=== PATIENT | female | born 1940 | race Caucasian/White ===

== ENCOUNTER 2020-08-15 18:50 | Emergency (ER) | payer MEDICARE, SELFPAY ==
[2020-08-15 19:09] VITALS: BP 165/66; PULSE 76; RESP 14; TEMP 36.8; O2SAT 94; BMI 34.9
--- NOTE | 2020-08-15 19:27 | HMH.EDUTC ---
[facility] [place] Disposition Clinical Impression: Exposure to COVID-19 virus Disposition: Home, Self-Care Condition on Discharge: Good Instructions: Preventing the Spread of Coronavirus Discharge Instructions Additional Instructions: Drink plenty of fluids. Take tylenol or ibuprofen for pain or fever. Follow up with your regular doctor. GO TO THE ER FOR ANY WORSENING SYMPTOMS FOLLOW THE DIRECTIONS ON THE COVID-19 HAND OUT THAT WE GAVE YOU REGARDING SELF-ISOLATION UNTIL YOU KNOW YOUR COVID-19 RESULTS Referrals: Victorina Soto [Primary Care Provider] - Time of Disposition: 19:29 Medical Decision Making - Medical Records Medical records reviewed: No: I reviewed the patient's medical records. - Jesse Inquiry Pt receiving controlled substance: No Vital Signs: 08/15/20 19:09 08/15/20 19:32 Temperature 98.3 F 98.3 F Temperature Source Oral Pulse Rate 76 Pulse Rate [Right Brachial] 76 Respiratory Rate 14 14 Blood Pressure 165/66 H Blood Pressure [Right Arm] 165/66 H Blood Pressure Mean [Right Arm] 99 Blood Pressure Source [Right Arm] Automatic Cuff Blood Pressure Position [Right Arm] Sitting 02 Sat by Pulse Oximetry 94 L Oxygen Delivery Method Room Air [facility] [place] HPI - General Stated complaint: COVID Testing Time Seen by Provider: 08/15/20 19:15 Mode of Arrival: Ambulatory Source of Information: Patient Limitations: No Limitations Description of Symptoms (Recalled from Triage Doc. by RN): PATIENT'S DAUGHTER WAS EXPOSED TO COVID, REQUESTING TO BE TESTED. DENIES SYMPTOMS HEENT Symptoms (Recalled from RN notes): No Resp Symptoms (Recalled from RN notes): No Skin Symptoms (Recalled from RN notes): No MS Symptoms (Recalled from RN notes): No Functional Status (Recalled from RN notes): WNL - History of Present Illness Provider Complaint: Her daughter was exposed to covid at her workplace. She lives with her daughter. - Related Data Allergies Allergy/AdvReac Type Severity Reaction Status Date / Time codeine Allergy Verified 08/15/20 19:21 - Worker's Comp Is this a Worker's Comp case?: No [facility] History - Hepatitis A Screen Drug use history?: No High risk sexual behaviors?: No History of sexually transmitted infection?: No Currently employed?: No Childcare worker?: No Do you have indoor plumbing?: Yes Do you have electricity?: Yes Attestation statement:: This patient has been screened for Hepatitis A risk factors. I have reviewed the patient's past medical history: Yes - Social History Alcohol Intake: never Occupational Status: other ROS Obtained: Yes All systems reviewed & no additional complaints - Constitutional Constitutional: Denies chills, Denies fever(s) - Eyes Eyes: Denies eye discharge - ENT Ears, Nose, Mouth, and Throat: Denies dizziness, Denies otalgia, Denies sore throat - Cardiovascular Cardiovascular: Denies chest pain, Denies dyspnea - Respiratory Respiratory: No chest congestion, No cough Physical Exam - General General appearance: alert, in no apparent distress - Head Head exam: atraumatic, normocephalic, normal inspection - Eye Eye exam: Present: normal appearance, PERRL, EOMI - ENT ENT exam: Present: normal exam, normal oropharynx, mucous membranes moist, TM's normal bilaterally, normal external ear exam - Neck Neck exam: Present: normal inspection, full ROM, trachea midline. Absent: meningismus, lymphadenopathy - Chest Chest inspection: Present: normal inspection, symmetric chest wall rise. Absent: tenderness - Respiratory Respiratory exam: Present: normal lung sounds bilaterally. Absent: respiratory distress - Cardiovascular Cardiovascular exam: Present: regular rate, normal rhythm. Absent: JVD - Abdominal Exam Abdominal exam: Present: soft, normal bowel sounds. Absent: distention, tenderness, guarding - Extremities Exam Extremities exam: Present: normal inspection, full ROM, normal capillary refill. Absent:
[2020-08-15 19:32] VITALS: BP 165/66; PULSE 76; RESP 14; TEMP 36.8; O2SAT 94
== END 2020-08-15 19:40 | disposition home or self-care (01) ==
PROVIDERS: Emergency Provider Nurse Practitioner Family; PCP Physician Assistant
DX: Z20.828 Contact with and (suspected) exposure to other viral communicable diseases (principal); Z88.5 Allergy status to narcotic agent
CPT/HCPCS: G0463; 99201; U0003

== ENCOUNTER 2021-07-31 16:00 | Emergency (ER) | payer MEDICARE, SELFPAY ==
--- NOTE | 2021-07-31 16:13 | XR_ITS ---
PROCEDURE INFORMATION: Exam: XR Chest Exam date and time: 07/31/2021 4:13 PM Age: 80 years old Clinical indication: Cough; Patient HX: Neg covid test this morning TECHNIQUE: Imaging protocol: XR of the chest. Views: 2 views. COMPARISON: No relevant prior studies available. FINDINGS: Lungs: Unremarkable. No consolidation. Pleural spaces: Unremarkable. No pleural effusion. No pneumothorax. Heart/Mediastinum: Unremarkable. No cardiomegaly. Bones/joints: Unremarkable. IMPRESSION: No acute findings.
[2021-07-31 16:16] VITALS: BP 170/76; PULSE 71; RESP 22; TEMP 36.7; O2SAT 96; BMI 34.7
--- NOTE | 2021-07-31 16:25 | HMH.EDUTC ---
[facility] [place] Disposition Clinical Impression: Bronchitis Sinusitis Qualifiers: Sinusitis location: unspecified location Chronicity: unspecified Qualified Code(s): J32.9 - Chronic sinusitis, unspecified Disposition: Home, Self-Care Condition on Discharge: Good Instructions: Sinusitis, Acute Bronchitis, DI for Sinusitis, DI for Cough -- Adult Additional Instructions: ? Start antibiotic today. Be sure to complete entire prescription even if feeling better ? Monitor temp. Tylenol every 4 hours as needed and / or ibuprofen every 6 hours as needed ( As long as your primary care physician has told you that it ok to take both. For fever/aches/pains ER if no less than 101 despite Tylenol or Motrin ? Humidifier/vaporizer or hot steamy shower ? Inhaler every 4-6 hours as needed like we discussed. If unsure how to use it, ask pharmacist to demonstrate how. Should help open airways and improve cough, wheezing, and shortness of breath ? Mucinex for your cough and chest congestion. . Follow up with Family Doctor if no improvement or any worsening of symptoms Repeat COVID test if symptoms persist or worsen Follow up IMMEDIATELY for new or worsening of symptoms OR no noticeable improvement over the next 48-72 hours. 911 immediately for any life threatening symptoms such as chest pain or difficulty breathing Prescriptions: guaiFENesin [Mucinex 600mg tablet] 1 tab PO Q12HP PRN #20 tab PRN Reason: Congestion Transmission Status: Received by [facility] #[id number] Azithromycin [Z-Peng 250mg Tab] 250 mg PO DIRECTED #6 tab Transmission Status: Received by [facility] #[id number] Referrals: Marco Cabezas APRN [Primary Care Provider] - As needed Medical Decision Making - Jesse Inquiry Pt receiving controlled substance: No Jesse was queried for this patient: No Vital Signs: 07/31/21 16:16 07/31/21 17:46 Temperature 98.1 F 98.1 F Temperature Source Oral Pulse Rate 73 Pulse Rate [Left] 71 Respiratory Rate 22 18 Blood Pressure 168/73 H Blood Pressure [Right Arm] 170/76 H Blood Pressure Mean [Right Arm] 107 02 Sat by Pulse Oximetry 96 - Lab Data Lab results reviewed: Yes: I reviewed the patient's lab results. Lab Results 07/31/21 16:29: Strep Scn Rapid Clinic Negative Orders (Tests/Meds): ED MEDICATIONS Discontinued Medications Generic Name Dose Route Start Last Admin Trade Name Guevara PRN Reason Stop Dose Admin Ceftriaxone Sodium 1 gm 07/31/21 17:23 07/31/21 17:34 Ceftriaxone 1gm Vial IM 07/31/21 17:24 1 gm ONCE ONE Administration Lidocaine HCl 0 ml 07/31/21 17:23 07/31/21 17:33 Lidocaine 1% 5ml Pf Vial IM 07/31/21 17:24 2.5 ml ONCE ONE Administration ORDERS Category Date Time Status Strep Screen Confirmation Stat Micro 07/31/21 16:29 Received - Radiology Data #1 Image(s): Chest Image Reviewed: Yes I have reviewed radiologist's interpretation IMPRESSION: No acute findings. Medical Decision Narrative: Discussed with patient about transfer to the ED for further work up and evaluation and patient declined transfer states that she just wants medication and wants to go home Patient states that she has taken a zpack in the past without complications or reactions [facility] [place] HPI - General Stated complaint: cough,weak,body aches Time Seen by Provider: 07/31/21 16:26 Mode of Arrival: Ambulatory Source of Information: Patient Limitations: No Limitations Description of Symptoms (Recalled from Triage Doc. by RN): pt c/o weakness, body aches, fatigue, productive cough with green sputum and soa. pt states her sats dropped to 86% last night when feeling soa. pt is at 96% at this time on RA. no respiratory hx noted. pt had a negative rapid covid test today. HEENT Symptoms (Recalled from RN notes): No Resp Symptoms (Recalled from RN notes): Yes (soa and productive cough with yellow sputum) Skin Symptoms (Recalled from RN notes): No MS Symptoms (Recalled from RN not
[2021-07-31 17:46] VITALS: BP 168/73; PULSE 73; RESP 18; TEMP 36.7
[2021-07-31 20:08] LABS: UTC Strep Screen (Rapid) Negative (Negative)
== END 2021-07-31 17:48 | disposition home or self-care (01) ==
PROVIDERS: Emergency Provider Nurse Practitioner; PCP Nurse Practitioner Family
DX: J40 Bronchitis, not specified as acute or chronic (principal); J32.9 Chronic sinusitis, unspecified
CPT/HCPCS: 71046; 87880; 99202; G0463

== ENCOUNTER 2021-09-27 10:41 | Emergency (ER) | payer MEDICARE, SELFPAY ==
[2021-09-27 11:00] VITALS: BP 153/64; PULSE 84; RESP 18; TEMP 36.4; O2SAT 95; BMI 34.2
[2021-09-27 11:18] LABS: UTC Strep Screen (Rapid) Negative (Negative)
--- NOTE | 2021-09-27 11:43 | HMH.EDUTC ---
[facility] – [place] Disposition Clinical Impression: Otitis media Qualifiers: Otitis media type: suppurative Chronicity: acute Laterality: right Recurrence: non-recurrent Spontaneous tympanic membrane rupture: without spontaneous rupture Qualified Code(s): H66.001 - Acute suppurative otitis media without spontaneous rupture of ear drum, right ear Disposition: Home, Self-Care Condition on Discharge: Good Instructions: Middle Ear Infection Additional Instructions: Start antibiotic as soon as possible and be sure to take as ordered for full length of time even though he should start feeling better in 24-48 hours. Tylenol or Motrin as needed for pain or fever Encourage fluids, water, Gatorade, Powerade, Pedialyte if /toddler/child Warm compresses often helps when placed over ear Return immediately for new or worsening symptoms no noticeable improvement in 48-72 hours and in 10-14 days to ensure the ears are return to baseline. Follow-up with primary care Prescriptions: Amoxicillin [Amoxicillin 500mg Tab] 500 mg PO BID 10 Days #20 tab Transmission Status: Pending to [facility] #[id number] Referrals: Marco Cabezas APRN [Primary Care Provider] - Time of Disposition: 12:04 Medical Decision Making - Jesse Inquiry Pt receiving controlled substance: No Vital Signs: 09/27/21 11:00 Temperature 97.6 F Temperature Source Oral Pulse Rate [Right Brachial] 84 Respiratory Rate 18 Blood Pressure [Right Arm] 153/64 H Blood Pressure Mean [Right Arm] 93 Blood Pressure Source [Right Arm] Automatic Cuff Blood Pressure Position [Right Arm] Sitting 02 Sat by Pulse Oximetry 95 Oxygen Delivery Method Room Air - Lab Data Lab Results 09/27/21 11:12: Strep Scn Rapid Clinic Negative Orders (Tests/Meds): ORDERS Category Date Time Status Strep Screen Confirmation Stat Micro 09/27/21 11:12 Received [facility] [place] HPI - General Chief complaint: Urgent Treatment Center Stated complaint: right ear ache, sore throat Time Seen by Provider: 09/27/21 11:43 Mode of Arrival: Ambulatory Source of Information: Patient Limitations: No Limitations Description of Symptoms (Recalled from Triage Doc. by RN): PATIENT C/O RIGHT EAR ACHE WITH DRAINAGE AND SORE THROAT SINCE WEDNESDAY HEENT Symptoms (Recalled from RN notes): Yes Resp Symptoms (Recalled from RN notes): No Skin Symptoms (Recalled from RN notes): No MS Symptoms (Recalled from RN notes): No Functional Status (Recalled from RN notes): WNL - History of Present Illness Provider Complaint: 80 yr old female presnets for rt ear pain and sore throat with tender lymp node. - Related Data Previous Rx's Medication Instructions Recorded Amoxicillin [Amoxicillin 500mg Tab] 500 mg PO BID 10 Days #20 tab 09/27/21 Allergies Allergy/AdvReac Type Severity Reaction Status Date / Time codeine Allergy Verified 08/15/20 19:21 - Worker's Comp Is this a Worker's Comp case?: No [facility] History - Hepatitis A Screen Drug use history?: No High risk sexual behaviors?: No History of sexually transmitted infection?: No Currently employed?: No Childcare worker?: No Do you have indoor plumbing?: Yes Do you have electricity?: Yes Attestation statement:: This patient has been screened for Hepatitis A risk factors. I have reviewed the patient's past medical history: Yes Medical History: Reports:: Diabetes Mellitus Type 2 Laterality Cases: Bilateral: Tonsillectomy - Social History Alcohol Intake: never Occupational Status: other ROS Obtained: Yes Systems reviewed as appropriate & no additional complaints - Constitutional Constitutional: Reports system reviewed and no additional complaints, except as docu, Denies fever(s) - Eyes Eyes: Reports system reviewed and no additional complaints, except as docu, Denies blurry vision - ENT Ears, Nose, Mouth, and Throat: Reports system reviewed and no additional complaints, except as docu, Reports otalgia, Reports sore throat - Cardiovascular
[2021-09-27 12:05] VITALS: BP 153/64; PULSE 84; RESP 18; TEMP 36.4; O2SAT 95
== END 2021-09-27 12:09 | disposition home or self-care (01) ==
PROVIDERS: Emergency Provider Nurse Practitioner Family; PCP Nurse Practitioner Family
DX: H66.001 Acute suppurative otitis media without spontaneous rupture of ear drum, right ear (principal); E11.9 Type 2 diabetes mellitus without complications
CPT/HCPCS: G0463; 87880; 99202

== ENCOUNTER → 2021-12-10 16:07 | Outpatient (CLI) | payer MEDICARE, SELFPAY | PROVIDERS: PCP Nurse Practitioner Family; Visit Provider Nurse Practitioner | DX: Z20.822 Contact with and (suspected) exposure to COVID-19 (principal) | CPT/HCPCS: C9803; U0003; U0005 ==

== ENCOUNTER 2025-05-03 18:25 | Inpatient (IN) | payer MEDICARE, SELFPAY ==
--- OUTSIDE RECORDS SUMMARY | 2025-05-01 03:05 | XMS_ITS | Continuity of Care Document ---
Author Organization [facility] Phone Care Team Providers Care Orthopedic Shoes Salesperson Name Role Phone DANII MEHTA Primary Care DANII MEHTA Primary Attending DANII MEHTA Admitting DANII MEHTA Unavailable [phone] ALLERGIES AND ADVERSE REACTIONS ALLERGIES AND ADVERSE REACTIONS Code System Allergy Substance Adverse Reaction Date Reaction (Severity) Comment Status Reported By Updated By 3885 RXNorm CODEINE Drug-induce d nausea and vomiting active Patient [id number] on September 17, 2016 2:37:57 PM [place] 7052 RXNorm MORPHINE Adverse reaction to substance u active [id number] on April 19, 2018 3:26:08 PM [place] 4053 RXNorm ERYTHROMYCIN Adverse reaction to substance active [id number] on April 17, 2019 6:34:24 PM [facility] [id number] SNOMED CT IODINATED CONTRAST MEDIA Adverse reaction to substance (Moderate) oral swelling , facial edema active [id number] on June 17, 2023 11:56:59 AM [facility] [id number] SNOMED CT IODINATED CONTRAST MEDIA Adverse reaction to substance (Moderate) oral swelling , facial edema active [id number] on June 17, 2023 11:56:59 AM [facility] FAMILY HISTORY RELATION: Father Status: Cause of : Cerebrovascular accident Age at : Unknown SNOMED-CT Diagnosis Age At Onset Information not available RELATION: Mother Status: Cause of : Congestive heart failure Age at : Unknown SNOMED-CT Diagnosis Age At Onset Information not available RESULTS Patient: HAWA Cifuentes Date of : [birth year] LABORATORY RESULTS Information is not available LABORATORY NARRATIVE RESULTS Information is not available RADIOLOGY RESULTS Information is not available PATHOLOGY NARRATIVE RESULTS Information is not available MICROBIOLOGY RESULTS ORDER 100: CULTURE URINE (LO INC: 630-4) ORDER DATE: April 27, 2025 12:50:00 PM UTC PERFORMING LAB: [address] [id number] Specimen Source: URINE Specimen Type: Result Comment: April 28, 2025 10:30:00 AM UTC (TECH: [facility]) >100,000 COL/ML Gram Negative Rods Result Comment: April 28, 2025 10:31:00 AM UTC (TECH: [facility]) IDENTIFICATION AND SUSCEPTIBILITY TESTING PERFORMED AT [address] [place] [address] Final Result Date: April 29, 2025 1:36:00 PM UTC (TECH: [facility]) ISOLATE #1 Organism: Escherichia coli Result Comment: Final Result Date: April 29, 2025 1:36:00 PM UTC (TECH: [facility]) RAFIA ANTIBIOTIC LUANN TYPE VALUE UPDATED B Y 05351-2 Aztreonam < 2.0 Urine S April 29 1:36:00 PM UTC (TECH: [facility]) 34565-6 Ciprofloxacin < 0.25 Urine S April 152024 1:36:00 PM UTC (TECH: [facility]) 6984-9 ESBL Urine N April 29 1:36:00 PM UTC (TECH: [facility]) 04663-6 Levofloxacin <= 0.5 Urine S April 1:36:00 PM UTC (TECH: [facility]) 19939-8 Meropenem < 0.5 Urine S April 29 1:36:00 PM UTC (TECH: [facility]) 26667-2 Amikacin <= 8.0 Urine S April 29 1:36:00 PM UTC (TECH: [facility]) 64309-9 Ampicillin < 4.0 Urine S April 29, 2025 1:36:00 PM UTC (TECH: [facility]) 32-3 Amp/Sulbactam 0.0 Urine S April 152024 1:36:00 PM UTC (TECH: [facility]) 89147-5 Cefepime <= 1.0 Urine S April 29 1:36:00 PM UTC (TECH: [facility]) 86826-8 Ceftazidime < 2.0 Urine S April 29, 2025 1:36:00 PM UTC (TECH: [employer]) 53225-1 Ceftriaxone <= 1.0 Urine S April 29, 2025 1:36:00 PM UTC ([employer]: [employer]) 21016-5 Ertapenem < 0.25 Urine S April 29 1:36:00 PM UTC ([employer]) 41943-0 Gentamicin < 2.0 Urine S April 29, 2025 1:36:00 PM UTC ([employer]) 38926-3 Nitrofurantoin 32.0 Urine S April 29, 2025 1:36:00 PM UTC ([employer]) 04120-1 Piperacillin/Tazo 0.0 Urine S 2024 1:36:00 PM UTC ([employer]) 15065-3 Tetracycline <= 2.0 Urine S April 1:36:00 PM UTC ([employer]) 51904-7 Tobramycin < 2.0 Urine S April 29, 2025 1:36:00 PM UTC ([employer]) 516-5 Trimeth/Sulfa <= 0.5 Urine S April 152024 1:36:00 PM UTC ([employer]: [employer]) 37098-7 Sensitivity Required? Systemic April 29, 2025 1:36:00 PM UTC ([employer]: [employer]) BLOOD ADMIN RESULTS Information is not available MEDICATIONS HOME MEDICATIONS Status RXNORM NDC Medication Dose Route Frequency Dates Comments Reported By Updated By Drug Treatment Unknown DISCHARGE MEDICATIONS Status RXNORM NDC Medication Dose Route Frequency Dates Comments Physician Updated By No Discharge Medication Info rmation Available INPATIENT MEDICATIONS Status RXNORM NDC Medication Dose Route Frequency Rat e Quantity Dates Comments Physician Updated By No Inpatient Medication Info rmation Available SOCIAL HISTORY SOCIAL HISTORY SNOMED-CT Social History Element Description Effective Dates Offered Cessation Comment UpdatedBy [id number] Historical Tobacco smoking status Never Smoked [id number] on June 18, 2023 1:06:31 PM [place] SOCIAL HISTORY - Gender Sex: Female SOCIAL HISTORY - Status : status i nformation is not available Intention in Next Year: intention information is not available SOCIAL HISTORY - Sexual Behavior Sexual Orientation Gender Identity SNOMED-CT Description SNO MED -CT Description Activity Level No of Partners Partner Type UpdatedBy Information is not available HEALTH CONCERNS Problems Concern Status Health Concern problem infor mation not available. Smoking Status Status Years Used Consumed packs p er day Health Concern smoking histo ry information not available. Family History Concern Status Health Concern family histor y information not available. ENCOUNTERS ENCOUNTER INFORMATION Reason for Visit R30.0 Admission April 27, 2025 12:50:00 PM UTC [facility] [address] [facility] [id number] Discharge April 28, 2025 12:50:00 PM UTC DI SCHARGED TO HOME OR SELF CARE ENCOUNTER DIAGNOSES Notes information is not buster ilable. Code System Diagnosis Onset Date Diagnosis information is not available. ABSTRACT DIAGNOSES Code System Diagnosis Updated By R30.0 ICD10 DYSURIA [id number] on May 01, 2025 7:03:48 AM UTC R30.0 ICD10 DYSURIA [id number] on May 01, 2025 7:03:51 AM [place] CARE TEAM Care [employer]opedic Sh[employer] Salesperson Role DANII MEHTA Primary Care DANII MEHTA Primary Attending DANII MEHTA Admitting DANII MEHTA Referring CARE TEAM CARE telephone operators supervisor Role on Team Status Start Date End Date Update d By JANINE ENNIS PCP normal April 27, 2025 4:00:00 AM UTC April 28, 2025 12:50:00 PM UTC [id number] on April 30, 2025 10:23:37 AM [place] JANINE ENNIS Referring normal April 27, 2025 4:00:00 AM UTC April 28, 2025 12:50:00 PM UTC [id number] on April 30, 2025 10:23:37 AM [place] JANINE ENNIS Attending normal April 27, 2025 4:00:00 AM UTC April 28, 2025 12:50:00 PM UTC [id number] on April 30, 2025 10:23:37 AM [place] JANINE ENNIS Admitting normal April 27, 2025 4:00:00 AM UT April 28, 2025 12:50:00 PM UTC [id number] on April 30, 2025 10:23:37 AM UTC DECLINED PCP PCP normal April 27, 2025 12:50:32 PM UTC April 27, 2025 4:00:00 AM UT [id number] on April 30, 2025 10:23:37 AM UT
[2025-05-03 18:45] VITALS: BP 128/98; PULSE 81; RESP 18; TEMP 36.6; O2SAT 92; BMI 35.1
--- NOTE | 2025-05-03 18:46 | PC.NURSE ---
Pt. on floor and nursing aid getting vitals.
[2025-05-03 19:44] VITALS: PULSE 65
[2025-05-03] MEDS: PANTOPRAZOLE 40MG TABLET 40 MG PO (19:54)
[2025-05-03] MEDS: ACETAMINOPHEN 325MG TAB 650 MG PO (19:54)
[2025-05-03 19:59] VITALS: BP 167/73; PULSE 79; RESP 22; TEMP 36.7; O2SAT 94
--- NOTE | 2025-05-03 21:12 | ECG_ITS ---
APPROVED REPORT Exam: Resting ECG HR:70 bpm ECG Measurements Heart Rate 70 AXES WV 189 P 42 QRSd 101 QRS -14 QT 334 T 11 QTc 355 Conclusion SINUS RHYTHM MODERATE VOLTAGE CRITERIA FOR LVH, CONSIDER NORMAL VARIANT [MEETS CRITERIA IN ONE OF: R(aVL), S(V1), R(V5), R(V5/V6)+S(V1)] POSSIBLE ANTERIOR MYOCARDIAL INFARCTION , PROBABLY OLD [30 ms Q WAVE IN V3/V4, OR R < 0.2 mV IN V4] BORDERLINE ECG UNCONFIRMED REPORT Electronically signed by : Tate Stafford MD 05/05/2025 14:56:18
[2025-05-03] MEDS: glipiZIDE 5MG TABLET 10 MG PO (21:24)
[2025-05-03] MEDS: ATENOLOL 50MG TABLET 50 MG PO (21:25)
--- NOTE | 2025-05-03 21:31 | EXP.HP ---
History of Present Illness *Admission Date: 05/03/25 *Reason for visit:: New onset heart failure *History of present illness: Oly Jones is a 84-year-old female with a medical history of former HI, type 2 diabetes, hypertension who presented as a transfer from [facility] for new onset heart failure. Unfortunately, at hospital does not have the ability to do ECHO on a daily basis. They reached out to Dr. Chiu who recommended transfer to our facility for further evaluation and management. On arrival, patient was sitting in bed comfortably without acute distress. She states she has been having progressive shortness of breath over the past few days and thus presented to the ER. On arrival, patient was noted to be hypoxic and placed on 2 L. CXR there showed pulmonary edema with BNP 550, mildly elevated high-sensitivity troponins that peaked at 30. Of note, patient was noted to have 70% left renal artery stenosis at that facility. I discussed case with the ER attending and decision was made to accept patient for new onset heart failure. CMP, CBC, BNP, troponin at this time are pending at her facility. [facility] Disclaimer: The information contained in this section may have been updated after the patient was seen, as this information can be updated by other users. Medical History (Updated 05/03/25 @ 22:22 by Real Ocasio MD) CHF (congestive heart failure) Diabetes mellitus HLD (hyperlipidemia) HTN (hypertension) Surgical History (Updated 05/03/25 @ 18:58 by Betty Butterfield RN) H/O knee surgery H/O shoulder surgery Hx of hysterectomy Hx of cholecystectomy Social History (Updated 05/03/25 @ 18:58 by Betty Butterfield RN) Smoking Status: Never smoker alcohol intake: never current occupational status: other Travel in the last 8 weeks?: None Have you lived/traveled outside US in past 30 days?: No Contact w/someone who lives/traveled outside US past 30 days?: No Exposure to someone with infectious disease in past 14 days?: No Do you have a fever (greater than 100.4 F or 38 C)?: No Have you tested positive for COVID-19?: No Exposed to someone with COVID-19 in past 14 days?: No Do you have a sore throat?: No Do you have a cough?: No Do you have any weakness?: No Are you experiencing any nausea/vomitting?: No Do you have any diarrhea?: No Are you experiencing any unusual bleeding?: No Do you have any muscle aches/pain?: No Do you have any abdominal pain?: No Are you experiencing loss of taste or smell?: No Other Medical History Have you received the Flu Vaccine for this season: Yes Have you received the Pneumonia Vaccine: Yes Meds Home Medications and Allergies Home Medications ?Medication ?Instructions ?Recorded ?Confirmed ?Type aspirin 81 mg capsule 81 mg PO DAILY 05/03/25 05/03/25 History atenolol 50 mg tablet 50 mg PO DAILY 05/03/25 05/03/25 History dapagliflozin propanediol 10 mg 10 mg PO DAILY 05/03/25 05/03/25 History tablet (Farxiga) furosemide 20 mg tablet (Lasix) 40 mg PO DIRECTED 05/03/25 05/03/25 History glipizide 10 mg tablet 10 mg PO DAILY 05/03/25 05/03/25 History losartan 100 1 tab PO DAILY 05/03/25 05/03/25 History mg-hydrochlorothiazide 25 mg tablet potassium 99 mg tablet 99 mg PO DAILY 05/03/25 05/03/25 History New Prescriptions to Start Prescriptions: Allergies Allergy/AdvReac Type Severity Reaction Status Date / Time No Known Allergies Allergy Verified 05/03/25 18:51 Exam Data for Last 24 hours Vital signs and Labs for Last 24 Hours: Temp Pulse Resp BP Pulse Ox O2 Del Method O2 Flow Rate 98.0 F 79 22 167/73 H 94 L Nasal Cannula 2 05/03/25 19:59 05/03/25 19:59 05/03/25 19:59 05/03/25 19:59 05/03/25 19:59 05/03/25 20:00 05/03/25 20:00 I & O for Last 24 hours: Intake & Output 04/30/25 05/01/25 05/02/25 05/03/25 23:59 23:59 23:59 23:59 Weight 87.09 kg Constitutional Constitutional: no acute distress *Routine HEENT Exam Head: Present normocephalic Eye: Present EOMI and PERRL ENT: Present mucous membranes moist *Routine Neck Exam Neck: Present supple; Absent lymphadenopathy *Routine Respiratory Exam Respiratory: Present CTA bilaterally *Routine Cardiovascular Exam Cardiovascular: Present RRR *Routine Abdominal Exam Abdominal: Present soft and normoactive bowel sounds; Absent tenderness *Routine Rectal Exam Rectal:: deferred *Routine Genitalia Exam Genitalia:: deferred *Routine Extremities Exam Extremities: Absent cyanosis, clubbing or edema *Routine Skin Exam Skin: Present warm; Absent rash *Routine Neurological Exam Neurological: Present alert and oriented X3 Assessment and Plan *Assessment and plan (1) CHF (congestive heart failure): Status: Acute Category: Medical Code(s): I50.9 - Heart failure, unspecified Plan Oly Jones is a 84-year-old female with a medical history of former HI, type 2 diabetes, hypertension who presented as a transfer from [facility] for new onset heart failure. Unfortunately, at hospital does not have the ability to do ECHO on a daily basis. They reached out to Dr. Chiu who recommended transfer to our facility for further evaluation and management. On arrival, patient was sitting in bed comfortably without acute distress. She states she has been having progressive shortness of breath over the past few days and thus presented to the ER. On arrival, patient was noted to be hypoxic and placed on 2 L. CXR there showed pulmonary edema with BNP 550, mildly elevated high-sensitivity troponins that peaked at 30. Of note, patient was noted to have 70% left renal artery stenosis at that facility. I discussed case with the ER attending and decision was made to accept patient for new onset heart failure. CMP, CBC, BNP, troponin at this time are pending at her facility. #Acute hypoxic respiratory failure #Pulmonary edema #New onset heart failure exacerbation, unknown type #Former HI ? Transferred from [facility] after presenting with progressive shortness of breath, hypoxic with 2 L. ? Started IV Lasix 40 mg daily, spironolactone 25 mg. Follow-up urine output, renal function, electrolytes. ? Follow-up ECHO. ? Cardiology consulted, pending further recommendations. ? Continue home aspirin, statin, atenolol. ? Currently requiring 2 L, wean as tolerated. #Type 2 diabetes ? Hemoglobin A1c pending. ? LDSSI, ACHS glucose checks. #Hypertension ? Resume home medications once reconciled. Full code DVT prophylaxis: Lovenox 40 mg
[2025-05-03 23:04] LABS: Basophils % 0.2 % (0.1-2.0); Eosinophils # 0.1 Kmm3 (0.0-0.4); Eosinophils % 0.4 % (0.1-12.0); Hematocrit 38.4 % (37.0-47.0); Immature Granulocytes # 0.07 10^3uL; Immature Granulocytes % 0.4 %; Lymphocytes # 0.6 K/mm3 (0.7-4.5); Lymphocytes % 3.7 % (10-50); Mean Corpuscular HGB Conc 33.9 g/dL (31.8-35.4); Mean Corpuscular Hemoglobin 29.4 pg (27.0-31.2); Mean Corpuscular Volume 86.9 fl (81-99); Monocytes # 0.5 K/mm3 (0.1-1.0); Neutrophils # 14.6 K/mm3 (1.8-7.8); Neutrophils % 92.3 % (37.0-80.0); Nucleated Red Blood Cells # 0 10^3/uL; Nucleated Red Blood Cells % 0 %; Platelet Count 284 K/mm3 (142-424); Red Blood Count 4.42 M/mm3 (4.20-5.40); Red Cell Distribution Width 13.3 % (11.5-17.5); Red Cell Distribution Width-SD 41.9 fL; White Blood Count 15.8 K/mm3 (4.8-10.8)
[2025-05-03 23:20] LABS: Alanine Aminotransferase 28 U/L (12-78); Albumin Level 3.8 g/dl (3.5-5.0); Albumin/Globulin Ratio 1.4 (1.1-1.8); Alkaline Phosphatase 69 U/L (38-126); Anion Gap 9.2 mEq/L (5-15); Aspartate Amino Transferase 27 U/L (14-36); Bilirubin,Total 0.6 mg/dl (0.2-1.3); Blood Urea Nitrogen 12 mg/dl (7-17); Calcium 9.2 mg/dl (8.4-10.2); Carbon Dioxide 37 mmol/L (22.0-30.0); Chloride 88 mmol/L (98-107); Creatinine Clearance Estimated 58 mL/min (50-200); Estimated Glomerular Filt Rate 68 ml/min (>60); GFR (African American) 83 ML/MIN (>60); Globulin 2.8 g/dL (1.3-3.2); Glucose 178 mg/dl (74-100); Potassium 3.2 mmoL/L (3.5-5.1); Sodium 131 mmol/L (136-145); Total Protein,Serum 6.6 g/dl (6.3-8.2)
[2025-05-03 23:33] LABS: NT Pro Brain Natriuretic Pep. 4090 pg/mL (0-450); Troponin I 0.14 ng/ml (0.00-0.034)
[2025-05-03 23:39] LABS: Free T4 (Free Thyroxine) 1.27 ng/dl (0.78-2.19)
[2025-05-03] MEDS: POTASSIUM CHLORIDE 20MEQ TAB 40 MEQ PO (23:39)
[2025-05-03 23:52] LABS: Thyroid Stimulating Hormone 0.38 uIU/mL (0.465-4.68)
[2025-05-04] VITALS (24 sets, daily range): BP systolic 118–176; BP diastolic 44–84; PULSE 56–87; RESP 16–20; TEMP 36.4–36.9; O2SAT 90–100; BMI 35.4
--- NOTE | 2025-05-04 02:43 | PC.NURSE ---
Pt AOx4. Received tylenol for headache early in the shift and has not complained of pain since. Pt is aware of cardiology consult in the AM and has been NPO since 0000. Provider notified of abnormal troponin and BNP. Receiving PO K+ replacement for K+ of 3.2. Pt is currently resting in bed with eyes closed. Respirations even and unlabored. Bed is low, locked, and call light is in reach.
[2025-05-04 02:57] LABS: Troponin I 0.13 ng/ml (0.00-0.034)
[2025-05-04] MEDS: POTASSIUM CHLORIDE 20MEQ TAB 40 MEQ PO (03:19)
--- NOTE | 2025-05-04 05:34 | PC.NURSE ---
trash was taken and tablw was cleaned off. Patient is NPO so no ice or water was given. No dirty linens so they were not taken either.
[2025-05-04 05:37] LABS: POC Glucose,Bedside 124 (70-110)
[2025-05-04] MEDS: glipiZIDE 5MG TABLET 10 MG PO (06:34)
--- NOTE | 2025-05-04 06:34 | ECG_ITS ---
APPROVED REPORT Exam: Resting ECG HR:80 bpm ECG Measurements Heart Rate 80 AXES SC 212 P 64 QRSd 105 QRS -15 QT 379 T 33 QTc 415 Conclusion SINUS RHYTHM WITH FIRST DEGREE AV BLOCK ABNORMAL ECG UNCONFIRMED REPORT Electronically signed by : Tate Stafford MD 05/05/2025 14:55:59
--- NOTE | 2025-05-04 07:00 | CA_ITS ---
APPROVED REPORT EXAM: Comprehensive 2D, Doppler, and color-flow Echocardiogram Submarine Diver: THERESA Francisco, RVS Ht: 5 ft 2 in Wt: 192lbs BSA: 1.88 BP: 167/73 mmHg Indications: CHF 2D Dimensions IVSd 1.09 cm LVEF (Visual) 46.90 % PWd 1.13 cm LA Volume 69.20 mL LVDd 3.85 cm LA Volume Index 36.722172 mL/m2 (M/F) 16-34 LVDs 2.96 cm EF AP4 49.60 % Left Atrium 3.52 cm GL Strain -14.2 % M-Mode Dimensions LA Diam 3.34 cm (1.9-4.0) EPSs 0.54 cm LV Diastology E Decel Time 257 (160-240 msec) E/A Ratio 0.83 MED A' 8.30 cm/s LAT A' 12.90 cm/s Aortic Valve SATYA Index 0.92 cm2/m2 AoV Peak Josh. 156.0 (50-130 cm/s) AO Peak GR. 9.80 mmHg AO Mean GR. 4.90 (<5 mmHg) AO VTI 35.5 (18-25 cm) SATYA (VTI) 1.76 (2.5-4.5 cm2) Mitral Valve MV A Velocity 100.0 (40-130 cm/s) E/A Ratio 0.83 Tricuspid Valve TR P. Velocity 387.00 cm/s RAP Estimate 10.00 mmHg RVSP 69.90 mmHg Left Ventricle The left ventricle is normal size. The left ventricular systolic function is normal. The left ventricular ejection fraction is within the normal range. There is increased LV wall thickness. There is normal LV segmental wall motion. Transmitral Doppler flow pattern suggests impaired LV relaxation. LVEF is 60%. Right Ventricle Right ventricle is mildly dilated. The right ventricular systolic function is normal. Atria Left atrium is mildly dilated. Right atrium is mildly dilated. There is no Doppler evidence of interatrial shunt. Aortic Valve The aortic valve is mildly thickened. There is no aortic valvular stenosis. No aortic regurgitation is present. Mitral Valve The mitral valve is normal in structure. No evidence of mitral valve stenosis. Trace mitral regurgitation. Tricuspid Valve Tricuspid valve is grossly normal in structure and function. Mild tricuspid regurgitation. RVSP is 45-50 mmHg. Pulmonic Valve The pulmonary valve is normal in structure. There is no pulmonic valvular stenosis. Trace pulmonic regurgitation. Great Vessels The aortic root is normal in size. IVC is normal in size and collapses >50% with inspiration. Pericardium There is no pericardial effusion. Other Information Study Quality: Fair Conclusion Normal biventricular systolic function. Mild RV dilation. Biatrial dilation. Mild TR. Elevated RVSP 45-50 mmHg. Electronically signed by : Evelyne Bae MD 05/04/2025 14:17:14
[2025-05-04 08:22] LABS: Basophils % 0.3 % (0.1-2.0); Eosinophils # 0.3 Kmm3 (0.0-0.4); Eosinophils % 2.2 % (0.1-12.0); Hematocrit 41.9 % (37.0-47.0); Hemoglobin 13.9 g/dL (12.2-16.2); Immature Granulocytes # 0.03 10^3uL; Immature Granulocytes % 0.3 %; Lymphocytes # 0.8 K/mm3 (0.7-4.5); Lymphocytes % 6.3 % (10-50); Mean Corpuscular HGB Conc 33.2 g/dL (31.8-35.4); Mean Corpuscular Hemoglobin 29.4 pg (27.0-31.2); Mean Corpuscular Volume 88.6 fl (81-99); Mean Platelet Volume 9.1 fl (7.4-10.4); Monocytes # 0.7 K/mm3 (0.1-1.0); Monocytes % 5.4 % (1.7-9.3); Neutrophils # 10.2 K/mm3 (1.8-7.8); Neutrophils % 85.5 % (37.0-80.0); Nucleated Red Blood Cells # 0 10^3/uL; Nucleated Red Blood Cells % 0 %; Platelet Count 258 K/mm3 (142-424); Red Blood Count 4.73 M/mm3 (4.20-5.40); Red Cell Distribution Width 13.4 % (11.5-17.5); Red Cell Distribution Width-SD 43.8 fL; White Blood Count 11.9 K/mm3 (4.8-10.8)
[2025-05-04 08:40] LABS: Albumin Level 3.8 g/dl (3.5-5.0); Chloride 95 mmol/L (98-107); Sodium 136 mmol/L (136-145)
[2025-05-04 08:40] LABS: Microscopic, Urine URINE MICROSCOPIC (MICROSCOPIC)
[2025-05-04 08:43] LABS: Alanine Aminotransferase 29 U/L (12-78); Albumin/Globulin Ratio 1.5 (1.1-1.8); Alkaline Phosphatase 74 U/L (38-126); Aspartate Amino Transferase 32 U/L (14-36); Bilirubin,Total 0.5 mg/dl (0.2-1.3); Blood Urea Nitrogen 11 mg/dl (7-17); Calcium 8.8 mg/dl (8.4-10.2); Carbon Dioxide 39 mmol/L (22.0-30.0); Creatinine Clearance Estimated 58 mL/min (50-200); Estimated Glomerular Filt Rate 68 ml/min (>60); GFR (African American) 83 ML/MIN (>60); Globulin 2.6 g/dL (1.3-3.2); Glucose 136 mg/dl (74-100); Total Protein,Serum 6.4 g/dl (6.3-8.2)
[2025-05-04 08:44] LABS: Magnesium 1.3 mg/dl (1.6-2.3)
[2025-05-04 08:49] LABS: Appearance,Urine CLEAR (Clear); Bilirubin,Urine Negative (Negative); Blood, Urine Negative (Negative); Color,Urine YELLOW (Yellow); Glucose,Urine (UA) Negative (Negative); Ketones,Urine Negative (Negative); Leukocyte Esterase,Urine Negative (Negative); Nitrate,Urine Negative (Negative); Protein,Urine 1+ (Negative); Specific Gravity, Urine 1.015 (1.005-1.030); Urobilinogen,Urine 0.2 EU/dl (0.2)
[2025-05-04] MEDS: hydroCHLOROthiazide 25MG TABLET 25 MG PO (09:07)
[2025-05-04] MEDS: SPIRONOLACTONE 25MG TABLET 25 MG PO (09:07)
[2025-05-04] MEDS: ATENOLOL 50MG TABLET 50 MG PO (09:07)
[2025-05-04] MEDS: ASPIRIN EC 81MG TABLET 81 MG PO (09:07)
[2025-05-04] MEDS: DAPAGLIFLOZIN PROPANEDIOL 10 MG TABLET PO (09:08)
[2025-05-04] MEDS: IRBESARTAN 150MG TAB 150 MG PO (09:08)
[2025-05-04 09:59] LABS: POC Glucose,Bedside 134 (70-110)
--- NOTE | 2025-05-04 10:10 | HMH.PHAINT1 ---
Pharmacy Intervention Comments: HOME MEDICATION LIST VERIFIED USING LIST FROM OUTPATIENT PHARMACY AND PT INTERVIEW
--- NOTE | 2025-05-04 10:10 | EXP.CARD.CON ---
History of Present Illness History of Present Illness Consult date: 05/04/25 Requesting physician: Real Ocasio Consult reason: shortness of breath Chief complaint: SOB and abdominal pain History of present illness: This is an 84-year-old white female with a past medical history of hypertension, diabetes and an NH. She was transferred from [facility] with new onset heart failure and an elevated troponin consistent with a non-STEMI. The patient states that she had sudden onset of shortness of breath yesterday. She states that this got severe and was worse with exertion. It did improve with rest. It was associated with epigastric pain that radiated to her back. She states that this was severe as well. She states that she had not had any of the symptoms previously. She states that she has been fatigued and had no energy for the last 2 weeks and did feel like her left arm was heavy with some numbness. She went to see her primary care provider who had ordered an echocardiogram which had not been done yet. She denied any fever, chills, nausea, vomiting or diarrhea. She denied any lower extremity edema. She denies any chest pain or pressure, just the epigastric pain that she had yesterday. [facility] Disclaimer: The information contained in this section may have been updated after the patient was seen, as this information can be updated by other users. Medical History (Updated 05/04/25 @ 10:22 by Cortney Rodriguez APRN) Renal artery stenosis Acute heart failure with preserved ejection fraction (HFpEF) Non-STEMI (non-ST elevated myocardial infarction) CHF (congestive heart failure) Diabetes mellitus HLD (hyperlipidemia) HTN (hypertension) Surgical History (Updated 05/03/25 @ 18:58 by Betty Butterfield RN) H/O knee surgery H/O shoulder surgery Hx of hysterectomy Hx of cholecystectomy Social History (Updated 05/03/25 @ 18:58 by Betty Butterfield RN) Smoking Status: Never smoker alcohol intake: never current occupational status: other Travel in the last 8 weeks?: None Have you lived/traveled outside US in past 30 days?: No Contact w/someone who lives/traveled outside US past 30 days?: No Exposure to someone with infectious disease in past 14 days?: No Do you have a fever (greater than 100.4 F or 38 C)?: No Have you tested positive for COVID-19?: No Exposed to someone with COVID-19 in past 14 days?: No Do you have a sore throat?: No Do you have a cough?: No Do you have any weakness?: No Are you experiencing any nausea/vomitting?: No Do you have any diarrhea?: No Are you experiencing any unusual bleeding?: No Do you have any muscle aches/pain?: No Do you have any abdominal pain?: No Are you experiencing loss of taste or smell?: No Review of Systems Review of Systems Review of systems:: pertinent systems reviewed and negative unless documented below Constitutional Constitutional: Reports system reviewed and no additional complaints, except as documented, Reports fatigue and Reports lethargy Eyes Eyes: Reports system reviewed and no additional complaints, except as documented ENT Ears, Nose, Mouth, and Throat: Reports system reviewed and no additional complaints, except as documented *Cardiovascular Cardiovascular: Reports system reviewed and no additional complaints, except as documented, Reports dyspnea and Reports dyspnea on exertion *Respiratory Respiratory: Reports system reviewed and no additional complaints, except as documented, Reports dyspnea and Reports dyspnea on exertion *Gastrointestinal Gastrointestinal: Reports system reviewed and no additional complaints, except as documented and Reports abdominal pain (Epigastric pain radiating to her back) *Genitourinary Genitourinary: Reports system reviewed and no additional complaints, except as documented *Musculoskeletal Musculoskeletal: Reports system reviewed and no additional complaints, except as documented Integumentary/Breasts Skin/Breast: Reports system reviewed and no additional complaints, except as documented *Neurologic Neurologic: Reports system reviewed and no additional complaints, except as documented Psychiatric Psychiatric: Reports system reviewed and no additional complaints, except as documented Endocrine Endocrine: Reports system reviewed and no additional complaints, except as documented and Reports fatigue Hematologic/Lymphatic Hematologic/Lymphatic: Reports system reviewed and no additional complaints, except as documented Allergic/Immunologic Allergic/Immunologic: Reports system reviewed and no additional complaints, except as documented Exam Data for Last 24 hours Vital signs and Labs for Last 24 Hours: Temp Pulse Resp BP Pulse Ox O2 Del Method O2 Flow Rate 98.5 F 87 17 150/55 H 95 Nasal Cannula 2 05/04/25 07:47 05/04/25 07:59 05/04/25 07:47 05/04/25 07:47 05/04/25 07:47 05/04/25 09:00 05/04/25 09:00 Laboratory Results - last 24 hr 05/03/25 22:56: WBC 15.8 H, RBC 4.42, Hgb 13.0, Hct 38.4, MCV 86.9, MCH 29.4, MCHC 33.9, RDW 13.3, Plt Count 284, MPV 9.0, Neut % (Auto) 92.3 H, Lymph % (Auto) 3.7 L, Barnwell % (Auto) 3.0, Eos % (Auto) 0.4, Baso % (Auto) 0.2, Neut # (Auto) 14.6 H, Lymph # (Auto) 0.6 L, Barnwell # (Auto) 0.5, Eos # (Auto) 0.1, Baso # (Auto) 0.0, Sodium 131 L, Potassium 3.2 L, Chloride 88 L, Carbon Dioxide 37 H, Anion Gap 9.2, BUN 12, Creatinine 0.80, Estimated Creat Clear 58, Estimated GFR 68, Est GFR ( Amer) 83, Glucose 178 H, Calcium 9.2, Total Bilirubin 0.6, AST 27, ALT 28, Alkaline Phosphatase 69, Troponin I 0.14 H, NT-Pro-B Natriuret Pep 4090 H, Total Protein 6.6, Albumin 3.8, Globulin 2.8, Albumin/Globulin Ratio 1.4, TSH 0.38 L, Free T4 1.27 05/04/25 02:25: Troponin I 0.13 H 05/04/25 05:25: POC Glucose 124 H 05/04/25 08:10: WBC 11.9 H, RBC 4.73, Hgb 13.9, Hct 41.9, MCV 88.6, MCH 29.4, MCHC 33.2, RDW 13.4, Plt Count 258, MPV 9.1, Neut % (Auto) 85.5 H, Lymph % (Auto) 6.3 L, Barnwell % (Auto) 5.4, Eos % (Auto) 2.2, Baso % (Auto) 0.3, Neut # (Auto) 10.2 H, Lymph # (Auto) 0.8, Barnwell # (Auto) 0.7, Eos # (Auto) 0.3, Baso # (Auto) 0.0, Sodium 136, Potassium 4.0 D, Chloride 95 L, Carbon Dioxide 39 H, Anion Gap 6.0, BUN 11, Creatinine 0.80, Estimated Creat Clear 58, Estimated GFR 68, Est GFR ( Amer) 83, Glucose 136 H D, Calcium 8.8, Magnesium 1.3 L, Total Bilirubin 0.5, AST 32, ALT 29, Alkaline Phosphatase 74, Total Protein 6.4, Albumin 3.8, Globulin 2.6, Albumin/Globulin Ratio 1.5 05/04/25 08:32: Urine Color Yellow, Urine Appearance Clear, Urine pH 6.0, Ur Specific Hope 1.015, Urine Protein 1+ A, Urine Glucose (UA) Negative, Urine Ketones Negative, Urine Blood Negative, Urine Nitrate Negative, Urine Bilirubin Negative, Urine Urobilinogen 0.2, Ur Leukocyte Esterase Negative 05/04/25 09:45: POC Glucose 134 H I & O for Last 24 hours: Intake & Output 05/01/25 05/02/25 05/03/25 05/04/25 23:59 23:59 23:59 23:59 Output Total 150 / 150 200 / 200 Balance -150 / -150 -200 / -200 Weight 192 lb 192 lb 8 oz Constitutional Constitutional: no acute distress and obese *Routine HEENT Exam Head: Present normocephalic and atraumatic ENT: Present mucous membranes moist *Routine Neck Exam Neck: Present supple, full ROM and normal carotid upstroke; Absent JVD, carotid bruit or lymphadenopathy *Routine Respiratory Exam Respiratory: Present CTA bilaterally, normal respiratory effort, able to speak in complete sentences and symmetric chest movement *Routine Cardiovascular Exam Cardiovascular: Present RRR, Normal S1 and Normal S2; Absent murmur or gallop *Routine Abdominal Exam Abdominal: Present soft and normoactive bowel sounds; Absent tenderness, distended or organomegaly *Routine Extremities Exam Extremities: Present full ROM, pulses intact and normal capillary refill; Absent cyanosis, clubbing or edema *Routine Skin Exam Skin: Present intact and warm; Absent erythema *Routine Neurological Exam Neurological: Present alert, oriented X3 and CN II-XII intact; Absent sensory deficit or motor deficit Routine Psychiatric Exam Psychiatric: Present normal affect Meds Home Medications and Allergies Home Medications ?Medication ?Instructions ?Recorded ?Confirmed ?Type aspirin 81 mg capsule 81 mg PO DAILY 05/03/25 05/03/25 History atenolol 50 mg tablet 50 mg PO DAILY 05/03/25 05/04/25 History dapagliflozin propanediol 10 mg 10 mg PO DAILY 05/03/25 05/04/25 History tablet (Farxiga) furosemide 20 mg tablet (Lasix) 40 mg PO MOWEFR 05/03/25 05/04/25 History glipizide 10 mg tablet 10 mg PO BID 05/03/25 05/04/25 History losartan 100 1 tab PO DAILY 100/25MG 05/03/25 05/03/25 History mg-hydrochlorothiazide 25 mg tablet potassium 99 mg tablet 99 mg PO DAILY 05/03/25 05/03/25 History lidocaine 5 % topical patch 1 patch topical DAILY 05/04/25 05/04/25 History oxybutynin chloride 5 mg 5 mg PO HS 05/04/25 05/04/25 History tablet,extended release 24 hr trazodone 50 mg tablet 50 mg PO HS 05/04/25 05/04/25 History New Prescriptions to Start Prescriptions: Allergies Allergy/AdvReac Type Severity Reaction Status Date / Time No Known Allergies Allergy Verified 05/03/25 18:51 Assessment and Plan *Assessment and plan (1) Non-STEMI (non-ST elevated myocardial infarction): Status: Acute Category: Medical Code(s): I21.4 - Non-ST elevation (NSTEMI) myocardial infarction (2) Acute heart failure with preserved ejection fraction (HFpEF): Status: Acute Category: Medical Code(s): I50.31 - Acute diastolic (congestive) heart failure (3) HTN (hypertension): Status: Acute Qualifiers: Hypertension type: primary hypertension Qualified Code(s): I10 - Essential (primary) hypertension Category: Medical Code(s): I10 - Essential (primary) hypertension (4) Diabetes mellitus: Status: Acute Qualifiers: Diabetes mellitus residential insulin use: without medical terminologist use Diabetes mellitus complication status: without complication Diabetes mellitus type: type 2 Qualified Code(s): E11.9 - Type 2 diabetes mellitus without complications Category: Medical Code(s): E11.9 - Type 2 diabetes mellitus without complications (5) HLD (hyperlipidemia): Status: Acute Qualifiers: Hyperlipidemia type: mixed hyperlipidemia Qualified Code(s): E78.2 - Mixed hyperlipidemia Category: Medical Code(s): E78.5 - Hyperlipidemia, unspecified (6) Renal artery stenosis: Status: Acute Category: Medical Code(s): I70.1 - Atherosclerosis of renal artery Plan Plan: 1. Patient was mated to the hospital from [facility] with an elevated troponin consistent with a non-STEMI. The patient reports she has a history of an NH in the past as well. Will plan to proceed with left cardiac catheterization today to evaluate her coronary artery disease due to her non-STEMI. 2. The patient has mentioned the risk and benefits of proceeding with left cardiac catheterization. The patient verbalizes understanding and is agreeable in proceeding with the procedure. 3. Echocardiogram is currently pending. Preliminary EF is around 50%. 4. The patient has acute HFpEF. She is being diuresed with IV Lasix and oral spironolactone. Continue with diuresis with Lasix 40 mg IV twice daily. 5. Continue aspirin 81 mg daily. 6. Continue atenolol, irbesartan, spironolactone and Farxiga for HFpEF. 7. Her blood pressure is well-controlled. 8. Her LDL goal is less than 55. She is on a statin. Will get a lipid panel in the morning. 9. The patient did have imaging done at [facility] which showed a 70% left renal artery stenosis. At the time of her left cardiac catheterization we will also proceed with a renal angiogram for further evaluation of her renal artery stenosis in the setting of hypertension. 10. The patient has been educated risk and benefits of proceeding with renal angiogram as well. She verbalizes understanding and is agreeable in proceeding with the procedure. 11. Further recommendations will be made pending the patient's response to treatment and the results of her echocardiogram and left cardiac catheterization/renal angiogram today. Thank you for the opportunity to help participate in the care of this patient. All recommendations and orders are per
--- NOTE | 2025-05-04 10:12 | XR_ITS ---
FINAL REPORT CLINICAL HISTORY: hypoxia FINDINGS: A portable view of the chest is obtained. There is no prior exam for comparison. Cardiac and mediastinal silhouettes are normal. The lungs are clear. There is no pleural effusion or pneumothorax. IMPRESSION: No acute process on this portable exam. Reviewed, Interpreted and Dictated by Herminia Downing MD Transcribed by Joan Ritchie Authenticated and . [facility]
--- NOTE | 2025-05-04 10:13 | IR_ITS ---
APPROVED REPORT Patient Location: Inpatient Carriage Dogger: JANNIE Ni RT (R) PROCEDURES Left heart catheterization Left ventriculogram Selective coronary angiogram Drug-eluting stent deployment to the proximal LAD Bilateral selective renal angiography INDICATION Acute non-ST elevation myocardial infarction, Coronary artery disease, Abnormal renal duplex, Renal artery stenosis Informed consent was obtained prior to the procedure. COMPLICATIONS NONE Estimated Blood Loss: LESS THAN 10 ML TECHNIQUE One percent lidocaine used to anesthetize the right anterior aspect of the wrist. The right radial artery was accessed via the Seldinger technique. A 75 cm hydrophilic 6 [place] sheath was placed in the right radial artery. 2.5 mg of Verapamil, 800 mcg of nitroglycerin, 1mg Lidocaine and 5000 U Heparin were given through the arterial sheath. The JL3 catheter was also used to perform left heart catheterization and selective coronary angiogram. At the end the diagnostic angiogram therapeutic Was administered giving a therapeutic ACT and the guide catheter was placed in the left main artery followed by Choice PT extra-support wire down the LAD. A 3 mm x 18 mm [place] frontier stent was deployed at 18 ines reducing the severe stenosis to 0%. JULIAN-3 flow was present before and after the procedure. Following this the guide catheter was used to perform bilateral selective renal angiography. At the end of the procedure the apparatus was removed the sheath was removed and hemostasis was achieved using TR banding patient was transferred to the postop holding area in stable condition ANGIOGRAPHIC RESULTS The left main artery Normal The left anterior descending artery Is a concentric hazy 70% proximal stenosis The circumflex artery Is dominant and has diffuse 10% luminal regularities The right coronary artery Nondominant with 10% luminal irregularities The MOTT ventriculogram reveals Not performed The left ventricular end-diastolic pressure 20 mmHg Right renal artery singular normal Left renal artery singular normal IMPRESSION Severe proximal LAD disease as described above Successful stenting of the proximal LAD severe disease reduced to 0% with 1 drug-eluting stent Elevated LVEDP Normal renal arteries PLAN 1. Plavix and aspirin 2. Better treatment of essential hypertension 3. LDL less than 55 to be achieved with high intensity statin 4. Avoidance of tobacco products 5. Risk factor modification 6. Cardiac rehabilitation Electronically signed by : Sim Chiu MD 05/04/2025 13:07:58
[2025-05-04] MEDS: LIDOCAINE 1% 10ML MDV 10 ML IJ (12:05)
[2025-05-04] MEDS: diphenhydrAMINE 50MG/ML VIAL 50 MG IV (12:05)
[2025-05-04] MEDS: NITROGLYCERIN 800MCG/8ML SYR (CATH LAB) 800 MCG IA (12:05)
[2025-05-04] MEDS: HEPARIN 1,000 UNITS/500ML NS (CATH LAB) 3000 UNIT IV (12:05)
[2025-05-04] MEDS: 0.9 % SODIUM CHLORIDE 500 ML 25 ML IV (12:06)
[2025-05-04] MEDS: HEPARIN 1,000 UNITS/ML 10ML VIAL (CATH LAB) 5000 UNIT IV (12:06)
[2025-05-04] MEDS: VERAPAMIL 2.5MG/ML 2ML VIAL 2.5 MG IV (12:06)
[2025-05-04] MEDS: MIDAZOLAM HCL 1MG/ML 5ML VIAL 1 MG IV (12:42)
[2025-05-04] MEDS: FENTANYL 100MCG/2ML VIAL 50 MCG IV (12:43)
[2025-05-04] MEDS: CLOPIDOGREL 300MG TABLET 600 MG PO (12:45)
[2025-05-04 12:59] LABS: Lactic Acid 0.6 mmol/L (0.7-2.1)
--- NOTE | 2025-05-04 13:10 | SUR.PHASEII ---
gave report to floor RN Villa and educated RN on pt right arm status. current measurement for circumference is 11 and outlined in freeman. no questions and RN agreeable to monitor. aware.
[2025-05-04] MEDS: IOPAMIDOL-370 (76%);100ML BOTTLE 110 ML IV (13:27)
[2025-05-04] MEDS: MAGNESIUM SULFATE IN WATER 2 GM/50 ML PIGGYBACK IV ×3 (13:29→15:10)
[2025-05-04 13:43] LABS: CATHL Activated Clotting Time 341 SEC (74-125)
--- OUTSIDE RECORDS SUMMARY | 2025-05-04 13:48 | XMS_ITS | Continuity of Care Document ---
Author Organization [facility] Address [address] [place] [address] Care Team Providers Care Recovery Rn Name Role Phone DANII MEHTA Primary Care Provider [facility] Dyer Assistant CLAIRE SHEN Primary Care Provider Assessment No assessment recorded. Plan of Treatment Reminders Order Date Submit Date Provider Last Modified By Organization Details Last Modified Time Details Appointments OV EST 30 2024 08:00A M DANII MEHTA NP Not available Not available Not available Lab culture, urine 2024 025 [facility] (Laboratory), [address] [place] [address] [place], [address], 04/28/2025 06:31:08 microalbu min/creat inine, mass ratio, urine 2024 025 [facility], [address] [place] [address] [place], [address], 04/27/2025 12:17:56 urinalysi s, dipstick 2024 025 [facility], [address] [facility] [place], [address], 04/27/2025 08:51:14 Referral None recorded. Procedures None recorded. Surgeries None recorded. Imaging DEXA 2024 025 [facility] (Scheduling), [address] [place], [address], 05/02/2025 09:52:54 US, echocardi ogram 2024 025 [facility] [place] [address] (Scheduling), [address] [place], [address], 05/04/2025 09:18:58 Medication Orders lidocaine 5 % topical patch 2024 025 [facility] Mail Delivery, [address] [facility], [place], [address], 04/30/2025 17:00:41 Patient TargetsNo targets recorded. Patient Instructions Encounter Date Encounter Id Patient Instructions Last Modified By Organization Details Last Modified Time 04/27/2025 [id number] advance directives: care instructions manfred Not available 04/27/2025 07:55:03 well visit, over 65: care instructions manfred Not available 04/27/2025 07:55:03 Health Maintenance Recommendations: (5-10 year screening/prevent ion plan) [email or web address] Not available 04/20/2025 12:00:43 Reason for Referral None Reported. Results Created Date Observation Date Name Description Value Unit Range Abnormal Flag Note LastModifiedBy Organization Detail LastModifiedTime 04/27/2004/27/2025 micro album in/cr eatin ine, mass ratio , urine Microalbumin 30 Not Available [facility] [address] [place], [address], 04/27/2025 08:52:14 04/27/2004/27/2025 micro album in/cr eatin ine, mass ratio , urine Creatinine 50 Not Available [facility] [address] [place], [address], 04/27/2025 08:52:14 04/27/20 25 04/27/2025 micro album in/cr eatin ine, mass ratio , urine Ratio 30-300 Not Available [address] [place], [address], 04/27/2025 08:52:14 04/27/20 25 04/27/2025 urina lysis , dipst ick Leukocytes (reference range) trace Not Available [address] [place], [address], 04/27/2025 07:54:29 04/27/20 25 04/27/2025 urina lysis , dipst ick Nitrite (reference range:) negati ve Not Available [address] [place], [address], 04/27/2025 07:54:29 04/27/20 25 04/27/2025 urina lysis , dipst ick Urobilinogen (reference range) 0.2 Not Available [address] [place], [address], 04/27/2025 07:54:29 04/27/20 25 04/27/2025 urina lysis , dipst ick Protein (reference range) negati ve Not Available [address] [place], [address], 04/27/2025 07:54:29 04/27/20 25 04/27/2025 urina lysis , dipst ick pH (reference range 5-8.5) 7.0 Not Available [address] [place], [address], 04/27/2025 07:54:29 04/27/20 25 04/27/2025 urina lysis , dipst ick Blood (reference range:) negati ve Not Available [address] [place], [address], 04/27/2025 07:54:29 04/27/20 25 04/27/2025 urina lysis , dipst ick Specific [place] (reference range) 1.015 Not Available [address] [place], [address], 04/27/2025 07:54:29 04/27/20 25 04/27/2025 urina lysis , dipst ick Ketone (reference range) negati ve Not Available [address] [place], [address], 04/27/2025 07:54:29 04/27/20 25 04/27/2025 urina lysis , dipst ick Bilirubin (reference range) negati ve Not Available [address] [place], [address], 04/27/2025 07:54:29 04/27/20 25 04/27/2025 urina lysis , dipst ick Glucose (reference range) negati ve Not Available [address] [place], [address], 04/27/2025 07:54:29 04/27/20 25 04/27/2025 urina lysis , dipst ick Color (reference range: yellow-brown ) Pale Yellow Not Available [address] [place], [address], 04/27/2025 07:54:29 Result Notes None recorded. 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 Barak Hutchinso n null, [place] - [place] - [place] & [place] 4 16:02:26 Epigastri c pain 33187609 Active 2019 Barak Hutchinso n null, [place] - [place] - [place] & [place] 4 16:02:43 Body mass index 30+ - obesity 665288645 Active 2020 Barak Hutchinso n null, [place] - [place] - [place] & [place] 4 16:02:24 Arthritis 8719062 Active 2020 Barak Hutchinso n null, [place] - [place] - [place] & [place] 4 16:02:22 Hyperlipi demia 42231273 Active 2017 Barak Hutchinso n null, [place] - [place] & [place] 4 16:02:46 Non-rheum atic mitral regurgita tion 497081533 Active 2017 Barak Hutchinso n null, [place] - [place] & [place] 4 16:02:54 Essential hypertens ion 12701431 Active 2018 Barak Hutchinso n null, [place] - [place] & [place] 4 16:02:45 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 50988911 Active 2019 Barak Hutchinso n null[place] - [place] & [place] 4 16:02:39 Insomnia 896407666 Active 2020 Insomnia Barak Hutchinso n null, [place] - [place] - [place] & [place] 4 16:02:50 Dependent edema 914546155 Active 2018 Barak Hutchinso n null, [place] - [place] - [place] & [place] 4 16:02:31 Acute lower urinary tract infection 435019431 Active 2019 Barak Hutchinso n null[place] & [place] 4 16:02:20 Chest pain 33636830 Active 2019 Barak Hutchinso n null, [place] - [facility] - [facility] & [place] 4 16:02:28 Osteoarth ritis of right knee joint 938404519318 100 Active 2022 Barak pina null[place] - [facility] - [facility] & [place] 4 16:02:56 Mixed hyperlipi demia 654362572 Active 2023 DANII MEHTA NP [address] [place], [address], [place] - [facility] - [facility] & [place] 4 08:07:06 Uncontrol led type 2 diabetes mellitus 687615712 Active 2023 DANII MEHTA NP [address] [place], [address], [place] - [facility] - [facility] & [place] 4 08:07:07 Problem Notes None recorded. Procedures Surgical History Date Name Laterality Status Provider Name and Address Organization Details Recorded Time 025 Medicare Annual Wellness Visit Health Risk Assessment completed Anna MARSHALL - [facility] - [place] & [place] 04/27/2025 08:14:12 024 Medicare Annual Wellness Visit Health Risk Assessment completed Barak AMRSHALL - [facility] - [place] & [place] 03/21/2024 10:59:28 023 Medicare Annual Wellness Visit Health Risk Assessment completed Ebony Ferguson [facility] - [facility] & [place] 02/05/2023 08:24:14 Cholecystectomy completed Ebony Ferguson [facility] - [place] & [place] 08/11/2022 07:38:26 Tonsillectomy completed Ebony MARSHALL - [facility] - [place] & [place] 08/11/2022 07:38:36 Hysterectomy completed Ebony Ferguson [facility] - [place] & [place] 08/11/2022 07:38:49 complete repair of rotator cuff completed Ebony Ferguson [facility] - [place] & [place] 08/11/2022 07:39:20 Tubal Ligation completed Ebony Ferguson [facility] - [place] & [place] 08/11/2022 07:39:29 Cataract Surgery completed Ebony Ferguson [facility] & [place] 08/11/2022 07:39:47 total knee replacement completed Ebony MARSHALL [facility] & [place] 08/11/2022 07:40:34 Imaging Results None recorded. Procedure Notes None recorded. Medical Equipment None Reported. Allergies Allergen ID Allergen Name Allergen Category Reaction Reaction Severity Criticality Documentation Date Start Date Code Code System Note Provider Name and Address Organization Details Recorded Time 575415 morphine medicatio n Not available Not available Not available 01/15/2025 7052 RxNorm Soheila simpson, [facility] & [place] 5 08:10:24 555935 Iodinated contrast media (substanc e) medicatio n facial swelling other Not available Not available Not available 01/15/2025 14975 2003 SNOMED Oral swell ing Soheila simpson, [facility] & [place] 5 08:11:29 8627 codeine medicatio n dyspnea nausea vomiting severe severe severe Not available 07/27/2022 2670 RxNorm Soheila simpson, [facility] & [place] 5 16:04:59 8632 erythromy eryn medicatio n Not available Not available Not available 07/27/2022 4053 RxNorm Other react ions and sever ities : 'Adve rse react ion to subst ance' . [facility] [place] 3 14:10:00 8637 oxycodone medicatio n Not available Not available Not available 07/27/2022 7804 RxNorm React ion: hallu cinat ions, sever ity: Unkno wn Not Available [facility] 2 01:57:01 8641 escitalop rufina Not available Not available Not available Not available 07/27/2022 64915 8 RxNorm React ion: night [place] , sever ity: Unkno wn Not Available [facility] 2 01:57:01 8646 sertralin e hydrochlo ride medicatio n Not available Not available Not available 07/27/2022 68228 7 RxNorm React ion: stoma ch upset , sever ity: Unkno wn Not Available [facility] 01:57:02 Medications Name Sig Start Date Stop Date Status Note LastModified by Organization Details LastModified Time losartan 50 mg tablet 100 mg by oral route. 06/18 completed Not Available Not Available Not Available furosemide 40 mg tablet 40 mg by oral route. 06/18 completed Not Available Not Available Not Available cefazolin 1 gram solution for injection 1 g by injection route. 06/18 completed Not Available Not Available Not Available latanoprost 0.005 % eye drops 11/17 completed Not Available Not Available Not Available promethazin e-DM 6.25 mg-15 mg/5 mL oral syrup TAKE 5 ML EVERY DAY BY MOUTH FOR 5 DAYS AT BEDTIME 11/05 completed Not Available Not Available Not Available clonidine HCl 0.1 mg tablet Take 1 tablet twice a day by oral route as needed for 90 days, for systolic BP >160. active Not Available Not Available No t Available acetaminoph en 325 mg tablet 650 mg by oral route. 06/18 completed Not Available Not Available Not Available prednisone 10 mg tablet TAKE 1 TABLET BY MOUTH EVERY DAY FOR 3 DAYS 11/05 completed Not Available Not Available Not Available trazodone 50 mg tablet TAKE 1 TABLET EVERY DAY AT BEDTIME active Not Available Not Available No t Available azithromyci n 250 mg tablet TAKE 2 TABLETS (500 MG) BY ORAL ROUTE ONCE DAILY FOR 1 DAY THEN 1 TABLET (250 MG) BY ORAL ROUTE ONCE DAILY FOR 4 DAYS 11/05 completed Not Available Not Available Not Available valacyclovi r 1 gram tablet TAKE 1 TABLET BY MOUTH EVERY 12 HOURS FOR 7 DAYS 02/14 completed Not Available Not Available Not Available hydrocodone 5 mg-acetamin ophen 325 mg tablet TAKE 1 TABLET BY MOUTH EVERY 6 HOURS NEEDED FOR PAIN 01/31 completed Not Available Not Available Not Available meloxicam 15 mg tablet TAKE 1 TABLET BY MOUTH EVERY DAY 10/16 completed Not Available Not Available Not Available glipizide 10 mg tablet Take 1 tablet twice a day by oral route. active Not Available Not Available No t Available Milk of Magnesia 400 mg/5 mL oral suspension 30 mL by oral route. 06/18 completed Not Available Not Available Not Available lactated Ringers intravenous solution 1000 mL by intraven. route. 06/17 completed Not Available Not Available Not Available atenolol 25 mg tablet Take 50 mg by oral route. 08/02 completed Not Available Not Available Not Available promethazin e 6.25 mg-codeine 10 mg/5 mL syrup 5 ml as needed Orally twice a day (bid) as needed for 5 days 10/16 completed Not Available Not Available Not Available triamcinolo ne acetonide 0.5 % topical ointment APPLY TOPICALLY TO THE AFFECTED AREA EVERY DAY AT BEDTIME NEEDED FOR ITCHING 08/11 completed Not Available Not Available Not Available Aspir-Low 81 mg tablet,cynthia yed release Take 81 mg by oral route. 01/30 completed Not Available Not Available Not Available amoxicillin 500 mg tablet TAKE 1 TABLET BY MOUTH TWICE DAILY FOR 10 DAYS 08/11 completed Not Available Not Available Not Available Macrobid 100 mg capsule Take 1 capsule every 12 hours by oral route for 5 days. 2024 active Not Available Not Available Not Avai lable potassium chloride 20 mEq/L in dextrose 5 %-0.45 % sodium chloride IV 1000 mL by intraven. route. 06/17 completed Not Available Not Available Not Available losartan 100 mg-hydrochl orothiazide 25 mg tablet TAKE 1 TABLET EVERY DAY 2024 active Not Available Not Available Not Avai lable oxycodone-a cetaminophe n 5 mg-325 mg tablet Take 1 tablet by oral route. 08/02 completed Not Available Not Available Not Available magnesium oxide 400 mg (241.3 mg magnesium) tablet Take 1 tablet every day by oral route in the evening for 90 days. 02/14 completed Not Available Not Available Not Available cefazolin 1 gram/50 mL in dextrose (iso-osmoti c) intravenous piggyback 1 g by intraven. route. 06/17 completed Not Available Not Available Not Available oxycodone-a cetaminophe n 10 mg-325 mg tablet TAKE 1 TABLET BY MOUTH EVERY 4 TO 6 HOURS NEEDED 08/02 completed Not Available Not Available Not Available Humalog U-100 Insulin 100 unit/mL subcutaneou s solution 1 unt by sub-q route. 06/18 completed Not Available Not Available Not Available amlodipine 10 mg tablet 08/11 completed Not Available Not Available Not Available triamcinolo ne acetonide 40 mg/mL suspension for injection Take 1 mL by injection route. 08/21 completed Not Available Not Available Not Available pantoprazol e 40 mg tablet,cynthia yed release Take 40 mg by oral route. 01/31 completed Not Available Not Available Not Available erythromyci n 5 mg/gram (0.5 %) eye ointment APPLY 1 CM RIBBON INTO THE LOWER CONJUNCTI WILEY SAC(S) IN THE AFFECTED EYE(S) BY OPHTHALMI C ROUTE 3 TIMES PER DAY 02/14 completed Not Available Not Available Not Available diphenhydra mine 25 mg capsule 50 mg by oral route. 06/18 completed Not Available Not Available Not Available lidocaine 5 % topical patch APPLY 1 PATCH BY TOPICAL ROUTE ONCE DAILY (MAY WEAR UP TO 12HOURS.) 2024 active Not Available Not Available Not Avai lable promethazin e 25 mg tablet 12.5 mg by oral route. 06/18 completed Not Available Not Available Not Available fentanyl (PF) 50 mcg/mL injection solution 50 microgram s by injection route. 06/17 completed Not Available Not Available Not Available oxybutynin chloride ER 5 mg tablet,exte nded release 24 hr Take 1 tablet every day by oral route for 90 days, for overactiv e bladder. active Not Available Not Available No t Available gabapentin 300 mg capsule TAKE 1 CAPSULE BY MOUTH THREE TIMES DAILY NEEDED FOR 10 DAYS 06/30 completed Not Available Not Available Not Available aspirin 81 mg chewable tablet 1 tablet Orally Once a day for 90 days active Not Available Not Available No t Available hydrochloro thiazide 25 mg tablet 25 mg by oral route. 06/18 completed Not Available Not Available Not Available diclofenac sodium 50 mg tablet,cynthia yed release one tablet once to twice a day as needed for arthritis active Not Available Not Available No t Available furosemide 20 mg tablet Take 2 tablets every day by oral route for 90 days. active Not Available Not Available No t Available gabapentin 100 mg capsule TAKE 1 CAPSULE BY MOUTH THREE TIMES DAILY FOR 20 DAYS FOR SHINGLES PAIN 06/30 completed Not Available Not Available Not Available dexamethaso ne sodium phosphate 4 mg/mL injection solution Inject 1 mL by intramusc ular route. 08/21 completed Not Available Not Available Not Available methylpredn isolone 4 mg tablets in a dose pack FOLLOW PACKAGE DIRECTION S 06/30 completed Not Available Not Available Not Available ketorolac 60 mg/2 mL intramuscul ar solution 60 mg by intramusc . route. 06/17 completed Not Available Not Available Not Available ondansetron 4 mg disintegrat ing tablet 4 mg by oral route. 06/18 completed Not Available Not Available Not Available atenolol 50 mg tablet TAKE 1 TABLET TWICE DAILY active Not Available Not Available No t Available glipizide 5 mg tablet Take 10 mg by oral route. 08/02 completed Not Available Not Available Not Available dorzolamide 2 % eye drops 02/14 completed Not Available Not Available Not Available enoxaparin 40 mg/0.4 mL subcutaneou s syringe Inject 40 mg by sub-q route. 08/02 completed Not Available Not Available Not Available dextrose 50 % in water (D50W) intravenous syringe 50 mL by intraven. route. 06/18 completed Not Available Not Available Not Available hydromorpho ne 1 mg/mL injection syringe 1 mg by injection route. 06/18 completed Not Available Not Available Not Available potassium chloride 20 mEq/L in 0.45 % sodium chloride intravenous soln 1000 mL by intraven. route. 06/18 completed Not Available Not Available Not Available Mag-Al Plus 200 mg-200 mg-20 mg/5 mL oral suspension 30 mL by oral route. 06/18 completed Not Available Not Available Not Available sodium chloride 0.9 % intravenous piggyback 100 mL by intraven. route. 06/17 completed Not Available Not Available Not Available ondansetron HCl (PF) 4 mg/2 mL injection solution 4 mg by injection route. 06/17 completed Not Available Not Available Not Available Tradjenta 5 mg tablet 1 tablet Orally Once a day for 90 days 11/05 completed Not Available Not Available Not Available Naropin (PF) 5 mg/mL (0.5 %) injection solution 150 mg by injection route. 06/17 completed Not Available Not Available Not Available Coricidin HBP Cold-Multi Symptom 6.25 mg-15 mg-325 mg/15 mL oral liqd Take 20 mL 3 times a day by oral route as needed for 5 days. 11/05 completed Not Available Not Available Not Available Farxiga 10 mg tablet Take 1 tablet every day by oral route for 90 days. 2023 active Not Available Not Available Not Avai lable Bridion 100 mg/mL intravenous solution 200 mg by intraven. route. 06/17 completed Not Available Not Available Not Available baclofen 5 mg tablet TAKE 1 TABLET BY MOUTH TWICE DAILY FOR 14 DAYS NEEDED FOR MUSCLE PAIN 08/11 completed Not Available Not Available Not Available Paxlovid 300 mg (150 mg x 2)-100 mg tablets in a dose pack TK 2 NIRMATREL VIR TS AND 1 RITONAVIR T TOGETHER PO BID FOR 5 DAYS 08/08 completed Not Available Not Available Not Available cefazolin 2 gram solution for injection 2000 mg by injection route. 06/17 completed Not Available Not Available Not Available Vitals Date Recorded Systolic blood pressure Diastolic blood pressure Provider Name and Address Organization Details Last Updated DateTime 04/27/2025 148 mm[Hg] 68 mm[Hg] DANII MEHTA NP [address] [place] [address], [address], [facility] & [place] 04/30/2025 16:55:20 Date Recorded Body height Body mass index (BMI) Body weight Body temperature Oxygen saturation Oxygen saturation in Arterial blood by Pulse oximetry Heart rate Respiratory rate Systolic blood pressure Diastolic blood pressure Provider Name and Address Organization Details Last Updated DateTime 5 157.48 cm 35.2 kg/m2 92869.4 5 g 97.2 [degF] 98 % 98 % 55 /min 14 /min 160 mm[Hg] 79 mm[Hg] Anna Ramirez [place] - [facility] & [place] 08:08:03 Social History Question Answer Notes LastModified by Organizat ion Details LastModified Time Tobacco Smoking Status Never Smoker Not Available [facility] 02/05/2023 08:38:34 Do You Have An Advance Directive? Yes Information n ot available 04/27/2025 Do You Wear A Helmet When Biking? Yes [email or web address] Information not available 08/08/2024 Are You Blind Or Do You Have Difficulty Seeing? No [email or web address] Information n ot available 08/08/2024 What Is Your Level Of Caffeine Consumption? Moderate CHART_MERGE Information not available 02/05/2023 In The 14 Days Before Symptom Onset, Have You Had Close Contact With A Laboratory-confirm ed COVID-19 While That Case Was Ill? No [email or web address] Information n ot available 08/08/2024 In The 14 Days Before Symptom Onset, Have You Had Close Contact With A Person Who Is Under Investigation For COVID-19 While That Person Was Ill? No [email or web address] Information not available 08/08/2024 Have You Been To An Area Known To Be High Risk For COVID-19? No [email or web address] Information not available 08/08/2024 Are You Deaf Or Do You Have Serious Difficulty Hearing? No [email or web address] Information not available 08/08/2024 What Type Of Diet Are You Following? REGULAR [email or web address] Information n ot available 08/08/2024 Have You Processed Blood Or Body Fluids From An Ebola Virus Disease Patient Without Appropriate PPE? No Information not available 08/08/2024 Do You Reside In Or Have You Traveled To An Area Where Ebola Virus Transmission Is Active? No [email or web address] Information not available 08/08/2024 Have There Been Any Changes To Your Family Or Social Situation? No [email or web address] Information no t available 08/08/2024 What Is The Fluoride Status Of Your Home? Unknown [email or web address] Information not available 08/08/2024 Are There Any Guns Present In Your Home? No [email or web address] Information not available 08/08/2024 Have You Recently Or Are You Planning To Travel To An Area With Zika Virus? No [email or web address] Information not available 08/08/2024 Do You Use Insect Repellent Routinely? Yes [email or web address] Information not available 08/08/2024 In General, Would You Say Your Health Is Good [email or web address] Information not available 08/08/2024 How Would You Describe The Condition Of Your Mouth And Teeth including False Teeth Or Dentures? Good [email or web address] Information n ot available 08/08/2024 In The Past 7 Days, How Many Servings Of Fruits And Vegetables Did You Typically Eat Each Day? (1 Serving = 1 Cup Of Fresh Vegetables, 1 2 Cup Of Cooked Vegetables, Or 1 Medium Piece Of Fruit. 1 Cup = Size Of A Baseball.) 3-4 Servings Per Day [email or web address] Information not available 08/08/2024 In The Past 7 Days, How Many Servings Of High Fiber Or Whole Grain Foods Did You Typically Eat Each Day? (1 Serving = 1 Slice Of 100% Whole Wheat Bread, 1 Cup Of Whole-grain Or High-fiber Slahg-od-phn Cereal, 1 2 Cup Of Cooked Cereal Such As Oatmeal, Or 1 2 Cup Of Cooked Brown Rice Or Whole Wheat Pasta.) 3-4 Servings Per Day [email or web address] Information not available 08/08/2024 In The Past 7 Days, How Many Servings Of Fried Or High-fat Foods Did You Typically Eat Each Day? (Examples Include Fried Chicken, Fried Fish, [place], Citizen Of [place], Potato Chips, [place] Chips, Doughnuts, Creamy Salad Dressings, And Foods Made With Whole Milk, Cream, Cheese, Or Mayonnaise.) 1-2 Servings Per Day [email or web address] Information not available 08/08/2024 In The Past 7 Days, How Many Sugar-sweetened (not Diet) Beverages Did You Typically Consume Each Day 1-2 Drinks Per Day [email or web address] Information not available 08/08/2024 Each Night, How Many Hours Of Sleep Do You Usually Get? 6-7 Hours [email or web address] Information not available 08/08/2024 Do You Snore Or Has Anyone Told You That You Snore? No [email or web address] Information not available 08/08/2024 In The Past 7 Days, How Often Have You Dovray Sleepy During The Daytime? Sometimes Information not available 08/08/2024 Do You Have Chronic Pain? Yes [email or web address] Information not available 08/08/2024 In The Past 7 Days, How Would You Rate Your Pain? Moderate Pain(4-6) [email or web address] Information not available 08/08/2024 Are You In A Pain Management Program? No [email or web address] Information not available 08/08/2024 Do You Take Opioids For Your Pain? No [email or web address] Information not available 08/08/2024 How Often Is Stress A Problem For You In Handling Such Things As: Your Health, Your Finances, Your Family And Social Relationships, Your Work? Never Or Rarely [email or web address] Information not available 08/08/2024 How Often Do You Get The Social And Emotional Support You Need: Always [email or web address] Information not available 08/08/2024 In The Past 7 Days, Did You Need Help From Others To Take Care Of Things Such As Laundry And Housekeep- Ing, Banking, Shopping, Using The Telephone, Food Preparation, Transportation, Or Taking Your Own Medications? No [email or web address] Information not available 08/08/2024 Do You Live Alone? No [email or web address] Inform ation not available 08/08/2024 Does Your Home Have Any Fall Risks (un-level Floors, Unfastened Rugs, Poor Lighting, Etc)? No [email or web address] Information not available 08/08/2024 Do You Feel Safe At Home? Yes [email or web address] Information not available 08/08/2024 Do You Have A Medical Power Of Senior Controls Analyst? Yes Information not available 04/27/2025 What Was The Date Of Your Most Recent Tobacco Screening? 01/26/2025 [email or web address] Information not available 01/26/2025 Do You Have Any Pets? No [email or web address] Information not available 08/08/2024 What Is Your Relationship Status? Information not available 04/27/2025 Do You Use Your Seat Belt Or Car Seat Routinely? Yes [email or web address] Information not available 08/08/2024 Are You Sexually Active? No Information not available 04/27/2025 Do You Have Smoke And Carbon Monoxide Detectors In Your Home? Yes [email or web address] Information not available 08/08/2024 Are You Passively Exposed To Smoke? No [email or web address] Information no t available 08/08/2024 Do You Use Sunscreen Routinely? Yes [email or web address] Information not available 08/08/2024 Has Tobacco Cessation Counseling Been Provided? No CHART_MERGE Information not available 02/05/2023 Do You Have Difficulty Walking Or Climbing Stairs? No Information not available 08/08/2024 Are You Currently In School? No [email or web address] Information not available 08/08/2024 Sex: Unknown Functional Status Question Answer Note LastModified by Organizat ion Details LastModified Time Do you use any illicit or recreational drugs? No CHART_MERGE Information not available 02/05/2023 Do you or have you ever used any other forms of tobacco or nicotine? No CHART_MERGE Information not available 02/05/2023 What is your level of alcohol consumption? None CHART_MERGE Information not available 02/05/2023 Are you currently employed? No Information not available 08/08/2024 Do you have transportation difficulties? No [email or web address] Information not available 08/08/2024 Are you able to walk? YESWOREST [email or web address] Information not available 08/08/2024 Do you have difficulty doing errands alone? No [email or web address] Information not available 08/08/2024 Are you able to care for yourself? Yes [email or web address] Information not available 08/08/2024 Do you have difficulty dressing or bathing? No [email or web address] Information not available 08/08/2024 What is your exercise level? None [email or web address] Information not available 08/08/2024 Mental Status Question Answer Note LastModified by Organizat ion Details LastModified Time Do you feel stressed (tense, restless, nervous, or anxious, or unable to sleep at night)? [id number] [email or web address] Information not available 08/08/2024 Do you have difficulty concentrating, remembering or making decisions? No [email or web address] Information no t available 08/08/2024 Family History Relationship Description Onset Age of this Age Resolved Age Notes LastModified by Organization Details LastModified Time Mother Congestive heart failure dece ed CHART_MERGE Not available 02/05/2023 08:38:32 Mother Coronary arterioscler osis dece ed CHART_MERGE Not available 02/05/2023 08:38:32 Father Coronary arterioscler osis dece ed CHART_MERGE Not available 02/05/2023 08:38:32 Father Cerebrovascu lar accident dece ed CHART_MERGE Not available 02/05/2023 08:38:32 Brother Coronary arterioscler osis CHART_MERGE Not available 01/14 08:38:32 Brother Essential hypertension CHART_MERGE Not available 0 02/05/2023 08:38:32 Brother Chronic obstructive pulmonary disease dece ed CHART_MERGE Not available 02/05/2023 08:38:32 Sister Essential hypertension CHART_MERGE Not available 0 02/05/2023 08:38:32 Sister dece ed CHART_MERGE Not available 02/05/2023 08:38:33 Medical History Condition Response Diabetes Y Hypertension Y Depression Y High Cholesterol Y Gynecological HistoryNo gynecological history recorded. Obstetrics History GPAL:G 0 P 0 0 0 0 Immunizations Vaccine Type Date Status Note Provider Nam e and Address Organization Details Recorded Time Influenza, high-dose, quadrivalent, PF 2 completed DANII MEHTA NP [address] [place] [address], [id number] 08/12/2022 18:44:27 COVID-19, mRNA, LNP-S, PF, 30 mcg/0.3 mL dose 1 completed Not Available [facility] 06/21/2023 11:42:37 COVID-19, mRNA, LNP-S, PF, 30 mcg/0.3 mL dose 1 completed Not Available [facility] 06/21/2023 11:42:37 Influenza, adjuvanted, quadrivalent, PF 1 completed Not Available [facility] 06/21/2023 11:42:37 Pneumococcal conjugate PCV20, polysaccharide [id number] conjugate, adjuvant, PF 2 completed Not Available [facility] 06/21/2023 11:42:37 COVID-19, mRNA, LNP-S, PF, 30 mcg/0.3 mL dose, lam-sucrose 2 completed [facility] 06/21/[facility]23 11:42:37 Tdap 3 completed DANII MEHTA NP [address] [place], [address], [place] [facility] & [place] 08/02/2023 16:19:22 Influenza, high-dose, quadrivalent, PF 3 completed DANII MEHTA NP [address] [facility], [place], [address], [place] [facility] & [place] 08/02/2023 16:19:22 COVID-19, mRNA, LNP-S, bivalent, PF, 30 mcg/0.3 mL dose 2 completed Not Available [facility] 06/21/2023 11:42:37 Influenza, split virus, trivalent, PF 7 completed Not Available [facility] 06/21/2023 11:42:37 COVID-19, mRNA, LNP-S, PF, 30 mcg/0.3 mL dose 1 completed Not Available [facility] 06/21/2023 11:42:37 Influenza, split virus, trivalent, PF 5 completed Not Available [facility] 06/21/2023 11:42:37 pneumococcal polysaccharide PPV23 6 completed Not Available [facility] 06/21/2023 11:42:37 Influenza, adjuvanted, quadrivalent, PF 0 completed Not Available [facility] 06/21/2023 11:42:37 Pneumococcal conjugate PCV 13 5 completed Not Available [facility] 06/21/2023 11:42:37 RSV, recombinant, protein subunit RSVpreF, adjuvant reconstituted, 0.5 mL, PF 3 completed Barak simpson, [place] [facility] & [place] 02/01/2024 07:57:45 COVID-19, mRNA, LNP-S, PF, lam-sucrose, 30 mcg/0.3 mL 3 completed Barak Brand null, [place] - [facility] - [place] & [place] 02/01/2024 07:57:45 Influenza, high-dose, trivalent, PF 4 completed Barak Brand null, [place] [facility] [place] & [place] 08/21/2024 10:57:57 zoster recombinant 4 completed Barak Brand null, [place] [facility] [place] & [place] 08/21/2024 10:58:08 zoster recombinant 5 completed DANII MEHTA NP [address] [facility], [place], [address], [place] [facility] [place] & [place] 11/19/2024 11:15:16 COVID-19, mRNA, LNP-S, PF, 50 mcg/0.5 mL 5 completed Anna Pardini null, [place] [facility] [place] & [place] 04/27/2025 08:08:31 Past Encounters Encounter ID Performer Location Encounter Start Date Encounter Closed Date Diagnosis/Indication Diagnosis SNOMED-CT Code Diagnosis ICD10 Code Diagnosis Note [id number] DANII MEHTA NP [facility] [address] [id number] 04/27/2025 07:47:15 05/01/2025 08:18:11 Adult health examination [id number] Z00.00 Patient presented to office today for their Medicare Annual Wellness Visit. Education was provided on healthy nutrition, including a diet rich in fruits and vegetables , minimizing simple carbohydra dillan, salt, and saturated fats. Encouraged regular cardiovasc ular exercise such as walking at least 30 minutes daily, 5 times per week. Emphasized preventive health measures and educated pt on fall prevention and community- based lifestyle interventi ons to help reduce health risks and promote healthy living. Uncontroll ed type 2 diabetes mellitus [id number] E11.65 take medication s as prescribed awaiting pepv1eshki forced diet and lifestyle changesdai ly foot checkyearl y eye examfollow up every 3 months Mixed hyperlipidemia [id number] E78.2 declines statin therapy, continue with lifestyle changes Essential hypertension 11867217 I10 educated on goal of less than 130/90advi sed low sodium diet, healthy lifestyle including exercise as ablecontin ue current medication regimenER if any symptoms such as chest pain, shortness of breath Dysuria [id number] R30.0 Office UA suggesting UTI, urine sent for culture and office will call after culture received. Take all medicines prescribed for you for the allotted time period. Push fluids especially water. If no better in 48-72 hours or if you develop abdominal or back pain, with fever chills nausea or vomiting come back or go to the emergency room immediatel y Low back pain [id number] M54.50 discussed heat, , follow-up if symptoms persist will recommend imaging and physical therapy Heart murmur 08443636 R0 1.1 asymptomat icget baseline echo; declines cardiology at this time Screening for osteoporosis [id number] Z13.820 Fatigue 37248341 R53.83 we will plan to get lab work at next visit Educated on sleep hygiene, screen time, diet, exercise Follow-up if symptoms persist or worsen discussed anxiety and considerin vonnie Cymbalta due to her chronic pain this may be a good fit for her chronic pain and anxiety Contusion of left foot [id number] S90.32XA reports comes and goes, will document next time for better informatio n of how long this lasted, not present today Health Concerns Section Related Observation LastModified by Organization Detai ls LastModified Time None Recorded Concern Status LastModified by Organization Details LastModified Time None Recorded Payers Encounter Date Sequence Insurance Name Policy Number Policy Mendoza Covered Member ID Mendoza Member ID Guarantor Name 04/27/2025 1 [employer] (MEDICARE REPLACEMENT/A DVANTAGE - PPO) Oly Jones [id number] Notes Date Note Type Note Provider Name and Address Organization Details Recorded Time 04/27/2025 text/html Patient presents for annual visit.Vision screening: had approximately 3 months agoAny falls, fractures surgeries: deniesColonoscopy: declines, no further screening due to ageAnxiety/Depressi on screening: negative, denies any SI/HIMammogram: declines, no further screening due to ageDEXA: needs medications reviewed, has not had to use her clonidine for blood pressure. Had did have some high readings up to 160 but always came back down without medication. Has not had to take her diclofenac for at least 3 days. Is using her Lasix Myke Wednesday Elijah. She has increased fatigue lately but not sleeping due to her grandson being with her Wednesday through , does not sleep well, worries about him. Declines medication for anxiety. Does have back pain, comes and goes with flare ups. Recently feels like her oxybutynin is not working, she went to half pack of pads per month in last week she used half a pack. In 1 week. Foot issues coming and going with bruising, without pain or injury, came and went, not present today DANII MEHTA, KEMI [address] [place] [address], [phone], [facility] [place] & [place] 04/30/2025 17:03:08 OBGyn Episode No OBEpisode recorded.
--- OUTSIDE RECORDS SUMMARY | 2025-05-04 13:48 | XMS_ITS | Data Portability ---
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 IF NO BETTER GO TO THE EMERGENCY DEPARTMENT. TAKE MEDICATION PRESCRIBED. FOLLOW-UP INDICATED. [email or web address] Not available 02/14/2025 11:07:56 Plan of Treatment Reminders Order Date Submit Date Provider Last Modified By Organization Details Last Modified Time Details Appointments OV EST 30 2024 08:00A M DANII SOUSA NP Not available Not available Not available Lab culture, urine 2024 025 [facility] (Laboratory), [address] [place] [address] [place], [address], 04/28/2025 06:31:08 microalbu min/creat inine, mass ratio, urine [address] [facility], [address] [place], [address], 04/27/2025 12:17:56 urinalysi s, dipstick [address] [facility], [address] [place], [address], 04/27/2025 08:51:14 lipid panel, serum 2024 025 [facility] (Laboratory), [address] [place], [address], 02/19/2025 14:14:34 microalbu min/creat inine, ratio, urine [address] [place] [address] (Laboratory), [address] [place], [address], 02/26/2025 08:19:54 hemoglobi n A1c + average glucose, QN, blood [address] [place] [address] (Laboratory), [address] [place], [address], 02/26/2025 08:19:54 CMP, serum or plasma [address] [place] [address] (Laboratory), [address] [place], [address], 02/19/2025 14:14:32 culture, urine [address] [place] [address] (Laboratory), [address] [place], [address], 02/26/2025 08:19:55 culture, urine 2024 025 [facility] (Laboratory), [address] [place], [address], 02/15/2025 06:23:43 urinalysi s, dipstick [facility] [address] [place], [address], 02/14/2025 11:34:05 hemoglobi n A1c + average glucose, QN, blood 2024 [facility] (Laboratory), [address] [place], [address], 11/24/2024 08:59:23 vitamin B12 + folate, serum or blood 2024 [facility] (Laboratory), [address] [place], [address], 11/24/2024 08:59:22 iron + TIBC + ferritin, serum [address] [place] [address] (Laboratory), [address] [place], [address], 11/24/2024 08:59:23 TSH, serum or plasma [address] [place] [address] (Laboratory), [address] [place], [address], 11/17/2024 18:12:25 CBC w/ auto diff [address] [place] [address] (Laboratory), [address] [place], [address], 11/17/2024 16:57:01 vitamin D, 25-hydrox y, total, serum [address] [place] [address] (Laboratory), [address] [place], [address], 11/24/2024 08:59:23 CMP, serum or plasma [address] [place] [address] (Laboratory), [address] [place], [address], 11/17/2024 18:13:28 magnesium , serum or plasma [address] [place] [address] (Laboratory), [address] [place], [address], 11/17/2024 18:13:30 Referral None recorded. Procedures None recorded. Surgeries None recorded. Imaging DEXA 2024 025 [facility] (Scheduling), [address] [place], [address], 05/02/2025 09:52:54 US, echocardi ogram 2024 025 [place] [id number] [facility] (Scheduling), [address] [place], [address], 05/04/2025 09:18:58 Medication Orders lidocaine 5 % topical patch 2024 025 [facility], [address] , [place], [address], 04/30/2025 17:00:41 Macrobid 100 mg capsule 2024 025 [id number], [address] [address] [place], [id number], 04/27/2025 08:09:20 valacyclo vir 1 gram tablet 2024 025 [facility] #[id number], [address], [id number], 02/14/2025 11:09:10 erythromy eryn 5 mg/gram (0.5 %) eye ointment 2024 025 [facility][id number], [address], [id number], 02/14/2025 11:09:11 oxybutyni n chloride ER 5 mg tablet,ex tended release 24 hr 2024 025 [facility], [address] , [place], [address], 11/17/2024 15:03:35 Patient TargetsNo targets recorded. Patient Instructions Encounter Date Encounter Id Patient Instructions Last Modified By Organization Details Last Modified Time 04/27/2025 [id number] advance directives: care instructions manfred Not available 04/27/2025 07:55:03 well visit, over 65: care instructions manfred Not available 04/27/2025 07:55:03 Health Maintenance Recommendations: (5-10 year screening/prevent ion plan) leanne Not available 04/20/2025 12:00:43 Reason for Referral None Reported. Results Created Date Observation Date Name Description Value Unit Range Abnormal Flag Note LastModifiedBy Organization Detail LastModifiedTime 11/17/1911/17/2024 CBC AUTO W DIFF WBC 7.9 10 4.5-11 .5 Not Available [facility] (Lab Registration) [address] [place], [address], 11/17/2024 16:57:01 11/17/19 25 11/17/2024 CBC AUTO W DIFF RBC 4.92 10 4.25-5 .57 Not Available [facility] (Lab Registration) [address] [place], [address], 11/17/2024 16:57:01 11/17/19 25 11/17/2024 CBC AUTO W DIFF HGB 14.7 g/dL 12.0-1 5.7 Not Available [facility] (Lab Registration) [address] [place], [address], 11/17/2024 16:57:01 11/17/19 25 11/17/2024 CBC AUTO W DIFF HCT 43.2 % 36.0-4 7.0 Not Available [facility] (Lab Registration) [address] [place], [address], 11/17/2024 16:57:01 11/17/19 25 11/17/2024 CBC AUTO W DIFF MCV 87.8 fL 80-95 Not Available [facility] (Lab Registration) [address] [place], [address], 11/17/2024 16:57:01 11/17/19 25 11/17/2024 CBC AUTO W DIFF MCH 29.9 pg 27.0-3 4.0 Not Available [facility] (Lab Registration) [address], [place], [address], 11/17/2024 16:57:01 11/17/19 25 11/17/2024 CBC AUTO W DIFF MCHC 34.0 g/dL 32.0-3 6.0 Not Available [facility] (Lab Registration) [address] [place], [address], 11/17/2024 16:57:01 11/17/19 25 11/17/2024 CBC AUTO W DIFF platelet count 279 10 150-45 0 Not Available [facility] (Lab Registration) [address] [place], [address], 11/17/2024 16:57:01 11/17/19 25 11/17/2024 CBC AUTO W DIFF RDW 13.2 % 12.3-1 5.1 Not Available [facility] (Lab Registration) [address] [place], [address], 11/17/2024 16:57:01 11/17/19 25 11/17/2024 CBC AUTO W DIFF MPV 10.0 fL 7.4-10 .4 Not Available [facility] (Lab Registration) [address] [place], [address], 11/17/2024 16:57:01 11/17/19 25 11/17/2024 CBC AUTO W DIFF granulocyte% 65.5 % 40-75 Not Available [facility] (Lab Registration) [address] [place], [address], 11/17/2024 16:57:01 11/17/19 25 11/17/2024 CBC AUTO W DIFF lymphocyte% 25.4 % 15-57 Not Available [facility] (Lab Registration) [address] [place], [address], 11/17/2024 16:57:01 11/17/19 25 11/17/2024 CBC AUTO W DIFF monocyte% 7.1 % 4.0-12 .0 Not Available [facility] (Lab Registration) [address], [place], [address], 11/17/2024 16:57:01 11/17/19 25 11/17/2024 CBC AUTO W DIFF eosinophil% 1.5 % 0.0-4. 0 Not Available [facility] (Lab Registration) [address], [place], [address], 11/17/2024 16:57:01 11/17/19 25 11/17/2024 CBC AUTO W DIFF basophil% 0.4 % 0.0-1. 0 Not Available [facility] (Lab Registration) [address], [place], [address], 11/17/2024 16:57:01 11/17/19 25 11/17/2024 CBC AUTO W DIFF immature granulocytes % 0.1 % 0.0-0. 8 Not Available [facility] (Lab Registration) [address] [place], [address], 11/17/2024 16:57:01 11/17/19 25 11/17/2024 CBC AUTO W DIFF granulocyte# 5.17 10 Not Available [facility] (Lab Registration) [address] [place], [address], 11/17/2024 16:57:01 11/17/19 25 11/17/2024 CBC AUTO W DIFF lymphocyte# 2.01 10 Not Available [facility] (Lab Registration) [address] [place], [address], 11/17/2024 16:57:01 11/17/19 25 11/17/2024 CBC AUTO W DIFF monocyte# 0.56 10 Not Available [facility] (Lab Registration) [address] [place], [address], 11/17/2024 16:57:01 11/17/19 25 11/17/2024 CBC AUTO W DIFF eosinophil# 0.12 10 Not Available [facility] (Lab Registration) [address] [place], [address], 11/17/2024 16:57:01 11/17/19 25 11/17/2024 CBC AUTO W DIFF basophil# 0.03 10 Not Available [facility] (Lab Registration) [address] [place], [address], 11/17/2024 16:57:01 11/17/19 25 11/17/2024 CBC AUTO W DIFF immature granulocytes # 0.01 10 Not Available [facility] (Lab Registration) [address] [place], [address], 11/17/2024 16:57:01 11/17/19 25 11/17/2024 CBC AUTO W DIFF manual differential NO Not Available [facility] (Lab Registration) [address] [place], [address], 11/17/2024 16:57:01 11/17/19 25 11/17/2024 CBC AUTO W DIFF note Unles s other butts noted testi ng perfo rmed at: [facility] [address] [place] [address] [phone] Corbin carrington MD CLIA: [id number] Not Available [facility] (Lab Registration) [address] [place], [address], 11/17/2024 16:57:01 11/17/19 25 11/17/2024 HEMOG LOBIN A1C glycosylated hemoglobin A1C 6.9 % 4.5-6. 2 high Not Available [facility] (Lab Registration) [address] [place], [address], 11/17/2024 17:06:53 11/17/19 25 11/17/2024 HEMOG LOBIN A1C estimated average glucose 151 mg/dL 82-131 high Not Available [facility] (Lab Registration) [address] [place], [address], 11/17/2024 17:06:53 11/17/19 25 11/17/2024 HEMOG LOBIN A1C note Unles s other butts noted testi ng perfo rmed at: [facility] [address] [place] [address] [phone] Corbin carrington MD CLIA: [id number] Not Available [facility] (Lab Registration) [address], [place], [address], 11/17/2024 17:06:53 11/17/19 25 11/17/2024 IRON/ TIBC/ %SAT (IRON STUDI ES) iron 82 ug/dL 35-150 Not Available [facility] (Lab Registration) [address] [place], [address], 11/17/2024 17:07:58 11/17/19 25 11/17/2024 IRON/ TIBC/ %SAT (IRON STUDI ES) total iron bind cap (TIBC) 298 ug/dL 250-45 0 Not Available [facility] (Lab Registration) [address], [place], [address], 11/17/2024 17:07:58 11/17/19 25 11/17/2024 IRON/ TIBC/ %SAT (IRON STUDI ES) % saturation 28 % 15-55 Not Available [facility] (Lab Registration) [address] [place], [address], 11/17/2024 17:07:58 11/17/19 25 11/17/2024 IRON/ TIBC/ %SAT (IRON STUDI ES) note Unles s other butts noted testi ng perfo rmed at: [facility] [address] [place] [phone] Corbin carrington MD CLIA: [id number] Not Available [facility] (Lab Registration) [address] [place], [address], 11/17/2024 17:07:58 11/17/19 25 11/17/2024 VITAM IN B12 vitamin B12 940 pg/mL 193-98 6 Not Available [facility] (Lab Registration) [address], [place], [address], 11/17/2024 18:12:22 11/17/19 25 11/17/2024 VITAM IN B12 folate (folic acid), serum 64.1 NG/mL 8.6-58 .9 high Not Available [facility] (Lab Registration) [address], [place], [address], 11/17/2024 18:12:22 11/17/19 25 11/17/2024 VITAM IN B12 note Unles s other butts noted testi ng perfo rmed at: [facility] [address] [place] [address] [phone] Corbin carrington MD CLIA: [id number] Not Available [facility] (Lab Registration) [address] [place], [address], 11/17/2024 18:12:22 11/17/19 25 11/17/2024 JOSEF TIN ferritin 201 NG/mL 8-388 Not Available [facility] (Lab Registration) [address] [place], [address], 11/17/2024 18:12:24 11/17/19 25 11/17/2024 JOSEF TIN note Unles s other butts noted testi ng perfo rmed at: [facility] [address] [place] [address] [phone] Corbin carrington MD CLIA: [id number] Not Available [facility] (Lab Registration) [address] [place], [address], 11/17/2024 18:12:24 11/17/19 25 11/17/2024 THYRO ID STIMU LATIN G HORMO NE thyroid stimulating hormone 0.54 mIU/m L 0.34-4 .80 Not Available [facility] (Lab Registration) [address] [place], [address], 11/17/2024 18:12:25 11/17/19 25 11/17/2024 THYRO ID STIMU LATIN G HORMO NE note Jacobo s other butts noted testi ng perfo rmed at: [facility] [address] [place] [address] [phone] Corbin carrington MD CLIA: [id number] Not Available [facility] (Lab Registration) [address] [place], [address], 11/17/2024 18:12:25 11/17/19 25 11/17/2024 VITAM IN D TOTAL (D2+D 3) vitamin D25 (D2+D3) 38.4 NG/mL 30-100 Not Available [facility] (Lab Registration) [address] [place], [address], 11/17/2024 18:13:27 11/17/19 25 11/17/2024 VITAM IN D TOTAL (D2+D 3) note Jacobo carrington other butts noted testi ng perfo rmed at: [facility] [address] [place] [address] [phone] Corbin carrington MD CLIA: [id number] Not Available [facility] (Lab Registration) [address] [place], [address], 11/17/2024 18:13:27 11/17/19 25 11/17/2024 COMP METAB OLIC PANEL sodium 140 mmol/ L 136-14 5 Not Available [facility] (Lab Registration) [address] [place], [address], 11/17/2024 18:13:28 11/17/19 25 11/17/2024 COMP METAB OLIC PANEL potassium 3.5 mmol/ L 3.5-5. 1 Not Available [facility] (Lab Registration) [address] [place], [address], 11/17/2024 18:13:28 11/17/19 25 11/17/2024 COMP METAB OLIC PANEL chloride 96 mmol/ L 98-107 low Not Available [facility] (Lab Registration) [address] [place], [address], 11/17/2024 18:13:28 11/17/19 25 11/17/2024 COMP METAB OLIC PANEL carbon dioxide 34 mmol/ L 21-32 high Not Available [facility] (Lab Registration) [address] [place], [address], 11/17/2024 18:13:28 11/17/19 25 11/17/2024 COMP METAB OLIC PANEL anion gap 10.0 Not Available [facility] (Lab Registration) [address] [place], [address], 11/17/2024 18:13:28 11/17/19 25 11/17/2024 COMP METAB OLIC PANEL glucose 107 mg/dL 70-110 Not Available [facility] (Lab Registration) [address] [place], [address], 11/17/2024 18:13:28 11/17/19 25 11/17/2024 COMP METAB OLIC PANEL blood urea nitrogen 15 mg/dL 7-18 Not Available [facility] (Lab Registration) [address] [place], [address], 11/17/2024 18:13:28 11/17/19 25 11/17/2024 COMP METAB OLIC PANEL creatinine 0.9 mg/dL 0.6-1. 0 Not Available [facility] (Lab Registration) [address] [place], [address], 11/17/2024 18:13:28 11/17/19 25 11/17/2024 COMP METAB OLIC PANEL BUN/creatini ne ratio 16.7 9-21 Not Available [facility] (Lab Registration) [address] [place], [address], 11/17/2024 18:13:28 11/17/19 25 11/17/2024 COMP METAB OLIC PANEL estimated glom filtration rate 63 mL/mi n >60- GFR LIMIT ATION : The eGFR equat ion CKD-E PI 2020 is not appli cable for pedia tric patie nts or great er than 90 years of age. The follo wing condi tions may alter the GFR resul t: extre mes in body size, malnu triti on or obesi ty, skele estefania muscl e disea se, parap legia or quadr ipleg ia, veget miguel diet or rapid ly palmer ing kiney funct ion. Not Available [facility] (Lab Registration) [address], [place], [address], 11/17/2024 18:13:28 11/17/19 25 11/17/2024 COMP METAB OLIC PANEL total protein 6.9 g/dL 6.4-8. 2 Not Available [facility] (Lab Registration) [address], [place], [address], 11/17/2024 18:13:28 11/17/19 25 11/17/2024 COMP METAB OLIC PANEL albumin 3.7 g/dL 3.4-5. 0 Not Available [facility] (Lab Registration) [address] [place], [address], 11/17/2024 18:13:28 11/17/19 25 11/17/2024 COMP METAB OLIC PANEL calcium 9.8 mg/dL 8.5-10 .1 Not Available [facility] (Lab Registration) [address] [place], [address], 11/17/2024 18:13:28 11/17/19 25 11/17/2024 COMP METAB OLIC PANEL corrected calcium 10.0 mg/dL 8.5-10 .1 Not Available [facility] (Lab Registration) [address] [place], [address], 11/17/2024 18:13:28 11/17/19 25 11/17/2024 COMP METAB OLIC PANEL bilirubin total 0.7 mg/dL 0.4-1. 5 Not Available [facility] (Lab Registration) [address] [place], [address], 11/17/2024 18:13:28 11/17/19 25 11/17/2024 COMP METAB OLIC PANEL AST (SGOT) 24 U/L 15-37 Not Available [facility] (Lab Registration) [address] [place], [address], 11/17/2024 18:13:28 11/17/19 25 11/17/2024 COMP METAB OLIC PANEL ALT (SGPT) 33 U/L 12-78 Not Available [facility] (Lab Registration) [address] [place], [address], 11/17/2024 18:13:28 11/17/19 25 11/17/2024 COMP METAB OLIC PANEL alk phosphatase 84 U/L 53-141 Not Available [facility] (Lab Registration) [address] [place], [address], 11/17/2024 18:13:28 11/17/19 25 11/17/2024 COMP METAB OLIC PANEL note Unles s other butts noted testi ng perfo rmed at: [facility] [address] [place] [address] [phone] Corbin carrington MD CLIA: [id number] Not Available [facility] (Lab Registration) [address] [place], [address], 11/17/2024 18:13:28 11/17/19 25 11/17/2024 MAGNE SIUM magnesium 1.6 mg/dL 1.8-2. 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 Cultu re Indic ates Conta minat ion of Speci men Durin gColl ectio n. Sugge st Recol lecti on with Steri le Techn ique. Not Available [facility] (Lab Registration) [address] , [place], [address], 02/15/2025 06:23:43 02/15/20 25 02/14/2025 CULTU RE URINE note Unles s other butts noted testi ng perfo rmed at: [facility] [address] [place] [address] [phone] Corbin carrington MD CLIA: [id number] Not Available [facility] (Lab Registration) [address] [place], [address], 02/15/2025 06:23:43 02/15/20 25 02/14/2025 urina lysis , dipst ick Leukocytes (reference range) small Not Available [address] [place], [address], 02/14/2025 11:13:31 02/15/20 25 02/14/2025 urina lysis , dipst ick Nitrite (reference range:) positi ve Not Available [address] [place], [address], 02/14/2025 11:13:31 02/15/20 25 02/14/2025 urina lysis , dipst ick Urobilinogen (reference range) 0.2 Not Available [address] [place], [address], 02/14/2025 11:13:31 02/15/20 25 02/14/2025 urina lysis , dipst ick Protein (reference range) negati ve Not Available [address] [place], [address], 02/14/2025 11:13:31 02/15/20 25 02/14/2025 urina lysis , dipst ick pH (reference range 5-8.5) 7.0 Not Available [address] [place], [address], 02/14/2025 11:13:31 02/15/20 25 02/14/2025 urina lysis , dipst ick Blood (reference range:) non-He molyze d: Trace Not Available [address] [place], [address], 02/14/2025 11:13:31 02/15/20 25 02/14/2025 urina lysis , dipst ick Specific [place] (reference range) 1.010 Not Available [address] [place], [address], 02/14/2025 11:13:31 02/15/20 25 02/14/2025 urina lysis , dipst ick Ketone (reference range) negati ve Not Available [address] [place], [address], 02/14/2025 11:13:31 02/15/20 25 02/14/2025 urina lysis , dipst ick Bilirubin (reference range) negati ve Not Available [address] [place], [address], 02/14/2025 11:13:31 02/15/20 25 02/14/2025 urina lysis , dipst ick Glucose (reference range) 100 Not Available [address] [place], [address], 02/14/2025 11:13:31 02/15/20 25 02/14/2025 urina lysis , dipst ick Color (reference range: yellow-brown ) Yellow Not Available [address] [place], [address], 02/14/2025 11:13:31 02/20/20 25 02/19/2025 HEMOG LOBIN A1C glycosylated hemoglobin A1C 7.2 % 4.5-6. 2 high Not Available [facility] (Lab Registration) [address] [place], [address], 02/19/2025 14:13:06 02/20/20 25 02/19/2025 HEMOG LOBIN A1C estimated average glucose 160 mg/dL 82-131 high Not Available [facility] (Lab Registration) [address] [place], [address], 02/19/2025 14:13:06 02/20/20 25 02/19/2025 HEMOG LOBIN A1C note Unles s other butts noted testi ng perfo rmed at: [facility] [address] [place] [address] [phone] Corbin carrington MD CLIA: [id number] Not Available [facility] (Lab Registration) [address] [place], [address], 02/19/2025 14:13:06 02/20/20 25 02/19/2025 COMP METAB OLIC PANEL sodium 139 mmol/ L 136-14 5 Not Available [facility] (Lab Registration) [address] [place], [address], 02/19/2025 14:14:32 02/20/20 25 02/19/2025 COMP METAB OLIC PANEL potassium 3.7 mmol/ L 3.5-5. 1 Not Available [facility] (Lab Registration) [address] [place], [address], 02/19/2025 14:14:32 02/20/20 25 02/19/2025 COMP METAB OLIC PANEL chloride 99 mmol/ L 98-107 Not Available [facility] (Lab Registration) [address] [place], [address], 02/19/2025 14:14:32 02/20/20 25 02/19/2025 COMP METAB OLIC PANEL carbon dioxide 31 mmol/ L 21-32 Not Available [facility] (Lab Registration) [address] [place], [address], 02/19/2025 14:14:32 02/20/20 25 02/19/2025 COMP METAB OLIC PANEL anion gap 9.0 Not Available [facility] (Lab Registration) [address] [place], [address], 02/19/2025 14:14:32 02/20/20 25 02/19/2025 COMP METAB OLIC PANEL glucose 155 mg/dL 70-110 high Not Available [facility] (Lab Registration) [address] [place], [address], 02/19/2025 14:14:32 02/20/20 25 02/19/2025 COMP METAB OLIC PANEL blood urea nitrogen 19 mg/dL 7-18 high Not Available [facility] (Lab Registration) [address] [place], [address], 02/19/2025 14:14:32 02/20/20 25 02/19/2025 COMP METAB OLIC PANEL creatinine 0.9 mg/dL 0.6-1. 0 Not Available [facility] (Lab Registration) [address] [place], [address], 02/19/2025 14:14:32 02/20/20 25 02/19/2025 COMP METAB OLIC PANEL BUN/creatini ne ratio 21.1 9-21 high Not Available [facility] (Lab Registration) [address], [place], [address], 02/19/2025 14:14:32 02/20/20 25 02/19/2025 COMP METAB OLIC PANEL estimated glom filtration rate 63 mL/mi n >60- GFR LIMIT ATION : The eGFR equat ion CKD-E PI 2020 is not appli cable for pedia tric patie nts or great er than 90 years of age. The follo wing condi tions may alter the GFR resul t: extre mes in body size, malnu triti on or obesi ty, skele estefania muscl e disea se, parap legia or quadr ipleg ia, veget miguel diet or rapid ly palmer ing kiney funct ion. Not Available [facility] (Lab Registration) [address], [place], [address], 02/19/2025 14:14:32 02/20/20 25 02/19/2025 COMP METAB OLIC PANEL osmolality (calculated) 295 mOsm/ kg 275-30 1 OSMOL ALITY IS A CALCU LATIO N UTILI ZING THE SERUM /PLAS MA SODIU M, GLUCO SE AND UREA NITRO GEN (BUN) LEVEL S. FOR THE MOST ACCUR ATE RESUL T A MEASU RED SERUM OSMOL ALITY IS SUGGE STED. Not Available [facility] (Lab Registration) [address], [place], [address], 02/19/2025 14:14:32 02/20/20 25 02/19/2025 COMP METAB OLIC PANEL total protein 6.9 g/dL 6.4-8. 2 Not Available [facility] (Lab Registration) [address], [place], [address], 02/19/2025 14:14:32 02/20/20 25 02/19/2025 COMP METAB OLIC PANEL albumin 3.7 g/dL 3.4-5. 0 Not Available [facility] (Lab Registration) [address] [place], [address], 02/19/2025 14:14:32 02/20/20 25 02/19/2025 COMP METAB OLIC PANEL calcium 9.3 mg/dL 8.5-10 .1 Not Available [facility] (Lab Registration) [address] [place], [address], 02/19/2025 14:14:32 02/20/20 25 02/19/2025 COMP METAB OLIC PANEL corrected calcium 9.5 mg/dL 8.5-10 .1 Not Available [facility] (Lab Registration) [address] [place], [address], 02/19/2025 14:14:32 02/20/20 25 02/19/2025 COMP METAB OLIC PANEL bilirubin total 0.4 mg/dL 0.4-1. 5 Not Available [facility] (Lab Registration) [address] [place], [address], 02/19/2025 14:14:32 02/20/20 25 02/19/2025 COMP METAB OLIC PANEL AST (SGOT) 18 U/L 15-37 Not Available [facility] (Lab Registration) [address] [place], [address], 02/19/2025 14:14:32 02/20/20 25 02/19/2025 COMP METAB OLIC PANEL ALT (SGPT) 28 U/L 12-78 Not Available [facility] (Lab Registration) [address] [place], [address], 02/19/2025 14:14:32 02/20/20 25 02/19/2025 COMP METAB OLIC PANEL alk phosphatase 91 U/L 53-141 Not Available [facility] (Lab Registration) [address] [place], [address], 02/19/2025 14:14:32 02/20/20 25 02/19/2025 COMP METAB OLIC PANEL note Unles s other butts noted testi ng perfo rmed at: [facility] [address] [place] [address] [phone] Corbin carrington MD CLIA: [id number] Not Available [facility] (Lab Registration) [address] , [place], [address], 02/19/2025 14:14:32 02/20/20 25 02/19/2025 LIPID PANEL triglyceride 111 mg/dL 20-200 The Natio nal Kim [employer] l [employer]ca tion Progr am (NCEP ) has set the follo wing guide lines for Fasti ng Trigl yceri ángel: TIMOTHY L: <150 mg/dL BORDE RLINE HIGH: 150 - 199 mg/dL HIGH: 200 - 499 mg/dL VERY HIGH: > or =500 mg/dL Not Available [facility] (Lab Registration) [address], [place], [address], 02/19/2025 14:14:34 02/20/20 25 02/19/2025 LIPID PANEL cholesterol 226 mg/dL 0-200 high The [employer]io n[employer] t[employer]gr am (NCEP ) has set the follo wing guide lines for Fasti ng Kim stero l: JAVY ABLE: <200 mg/dL BORDE RLINE HIGH: 200 - 239 mg/dL HIGH: > or =240 mg/dL Not Available [facility] (Lab Registration) [address], [place], [address], 02/19/2025 14:14:34 02/20/20 25 02/19/2025 LIPID PANEL HDL cholesterol 70 mg/dL 60- The Natio nal [employer]ca tion Progr am (NCEP ) has set the follo wing guide lines for Fasti ng HDL Kim stero l: LOW HDL: <40 mg/dL TIMOTHY L: 40 - 60 mg/dL JAVY ABLE: >60 mg/dL Not Available [facility] (Lab Registration) [address] [place], [address], 02/19/2025 14:14:34 02/20/20 25 02/19/2025 LIPID PANEL LDL calculated 134 mg/dL 100- The Natio nal [employer] l [employer]ca tion Progr am (NCEP ) has set the follo wing guide lines for Fasti ng LDL Kim stero l: OPTIM AL: < 100 mg/dL LOW RISK: 100 - 129 mg/dL BORDE RLINE HIGH: 130 - 159 mg/dL HIGH: 160 - 189 mg/dL VERY HIGH: > or = 190 mg/dL Not Available [facility] (Lab Registration) [address], [place], [address], 02/19/2025 14:14:34 02/20/20 25 02/19/2025 LIPID PANEL chol/HDL ratio 3 -5 Not Available [facility] (Lab Registration) [address], [place], [address], 02/19/2025 14:14:34 02/20/20 25 02/19/2025 LIPID PANEL note Unles s other butts noted testi ng perfo rmed at: [facility] [address] [place] [address] [phone] Corbin carrington MD CLIA: [id number] Not Available [facility] (Lab Registration) [address], [place], [address], 02/19/2025 14:14:34 04/27/20 25 04/27/2025 CULTU RE URINE results LT 04-28 630 >100, 000 COL/M L Gram Negat lexi Rods LT 04-28 631 IDENT IFICA TION AND SUSCE PTIBI LITY TESTI NG PERFO RMED AT [facility] [address] [address] Not Available [facility] (Lab Registration) [address], [place], [address], 04/28/2025 06:31:08 04/27/20 25 04/27/2025 CULTU RE URINE note Unles s other butts noted testi ng perfo rmed at: [facility] [address] [place] [address] [phone] Corbin carrington MD CLIA: [id number] Not Available [facility] (Lab Registration) [address], [place], [address], 04/28/2025 06:31:08 04/27/20 25 04/27/2025 CULTU RE URINE culccur ===== ===== ===== ===== ===== ===== ===== ===== ===== ===== ===== ===== ===== ===== ===== ===== ===== ===== ===== ===== ===== ===== ===== ===== Speci men NO.: [id number] Exam Statu s: Final Proce dure: CULTU RE URINE ===== ===== ===== ===== ===== ===== ===== ===== ===== ===== ===== ===== ===== ===== ===== ===== ===== ===== ===== ===== ===== ===== ===== ===== Iso/R esult : 01 Esche michelle a coli Antim icrob ic/Do se LUANN Syste luann Urine __ ___ ___ Aztre onam <2 S Cipro floxa eryn <0.25 S ESBL NEG N Levof loxac in <=0.5 S Merop enem <0.5 S Amika eryn <=8 S Ampic illin <4 S Amp/S ulbac [place] 4/2 S Cefep elgin <=1 S Cefta zidim e <2 S Ceftr iaxon e <=1 S Ertap enem <0.25 S Genta micin <2 S Nitro furan toin 32 S Piper acill in/Ta zo 4/4 S Tetra cycli ne <=2 S Tobra mycin <2 S Trime th/Lynn lfa <=0.5 S Sensi tivit y Requi red? YES LT 04-28 630 >100, 000 COL/M L Gram Negat lexi Rods LT 04-28 631 IDENT IFICA TION AND SUSCE PTIBI LITY TESTI NG PERFO RMED AT [facility] [address] [place] [address] Not Available [facility] (Lab Registration) [address] [place], [address], 04/29/2025 09:37:42 04/27/20 25 04/27/2025 CULTU RE URINE note Unles s other butts noted testi ng perfo rmed at: [facility] [address] [place] [address] [phone] Corbin carrington MD CLIA: [id number] Not Available [facility] (Lab Registration) [address] [place], [address], 04/29/2025 09:37:42 04/27/20 25 04/27/2025 micro album in/cr eatin ine, mass ratio , urine Microalbumin 30 Not Available [facility] [address] [place], [address], 04/27/2025 08:52:14 04/27/20 25 04/27/2025 micro album in/cr eatin ine, mass ratio , urine Creatinine [address] [facility] [address] [facility] [place], [address], 04/27/2025 08:52:14 04/27/20 25 04/27/2025 micro album in/cr eatin ine, mass ratio , urine Ratio 30-300 Not Available [address] [place], [address], 04/27/2025 08:52:14 04/27/20 25 04/27/2025 urina lysis , dipst ick Leukocytes (reference range) trace Not Available [address] [place], [address], 04/27/2025 07:54:29 04/27/20 25 04/27/2025 urina lysis , dipst ick Nitrite (reference range:) negati ve Not Available [address] [place], [address], 04/27/2025 07:54:29 04/27/20 25 04/27/2025 urina lysis , dipst ick Urobilinogen (reference range) 0.2 Not Available [address] [place], [address], 04/27/2025 07:54:29 04/27/20 25 04/27/2025 urina lysis , dipst ick Protein (reference range) negati ve Not Available [address] [place], [address], 04/27/2025 07:54:29 04/27/20 25 04/27/2025 urina lysis , dipst ick pH (reference range 5-8.5) 7.0 Not Available [address] [place], [address], 04/27/2025 07:54:29 04/27/20 25 04/27/2025 urina lysis , dipst ick Blood (reference range:) negati ve Not Available [address] [place], [address], 04/27/2025 07:54:29 04/27/20 25 04/27/2025 urina lysis , dipst ick Specific [place] (reference range) 1.015 Not Available [address] [place], [address], 04/27/2025 07:54:29 04/27/20 25 04/27/2025 urina lysis , dipst ick Ketone (reference range) negati ve Not Available [address] [place], [address], 04/27/2025 07:54:29 04/27/20 25 04/27/2025 urina lysis , dipst ick Bilirubin (reference range) negati ve Not Available [address] [place], [address], 04/27/2025 07:54:29 04/27/20 25 04/27/2025 urina lysis , dipst ick Glucose (reference range) negati ve Not Available [address] [place], [address], 04/27/2025 07:54:29 04/27/20 25 04/27/2025 urina lysis , dipst ick Color (reference range: yellow-brown ) Pale Yellow Not Available [address] [place], [address], 04/27/2025 07:54:29 Result Notes None recorded. Problems Name Problem SNOMED Code Status Onset Date Resolution Date Notes Provider Name and Address Organization Details Recorded Time Diabetes mellitus without complicat ion 354340855 Active 2014 DANII SOUSA NP [address], [place], [address] , [facility] - [facility] - [place] & [place] 3 08:40:54 Generaliz ed osteoarth ritis 196497621 Active 2017 Barak Hutchinso n null, [place] - [facility] - [place] & [place] 4 16:02:30 Depressiv e disorder 09643927 Active 2015 Barak Hutchinso n [place], [place] & [place] 4 16:02:34 Carotid artery obstructi on 08016674 Active 2017 Barak Hutchinso n [place], [place] [facility] [place] & [place] 4 16:02:26 Epigastri c pain 36660675 Active 2019 Barak Hutchinso n null, [place] [place] & [place] 4 16:02:43 Body mass index 30+ - obesity 462618361 Active 2020 Barak Hutchinso n [place] & [place] 4 16:02:24 Arthritis 2864788 Active 2020 Barak Hutchinso n [place] & [place] 4 16:02:22 Hyperlipi demia 33370863 Active 2017 Barak Hutchinso n [place] & [place] 4 16:02:46 Non-rheum atic mitral regurgita tion 275614173 Active 2017 Barak Hutchinso n [place] & [place] 4 16:02:54 Essential hypertens ion 84432892 Active 2018 Barak Hutchinso n [place] & [place] 4 16:02:45 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 58841493 Active 2019 Barak Hutch[place] & [place] 4 16:02:39 Insomnia 146013616 Active 2020 Insomnia Barak Hutchinso n null, [place] - [place] [place] & [place] 4 16:02:50 Dependent edema 166289966 Active 2018 Barak Hutch[place]so n [place] & [place] 4 16:02:31 Acute lower urinary tract infection 823097615 Active 2019 Barak Trinhso n [place] & [place] 4 16:02:20 Chest pain 90367400 Active 2019 Barak Jadchinso n [place] & [place] 4 16:02:28 Osteoarth ritis of right knee joint 585474585949 100 Active 2022 Barak Trinhso n [place] & [place] 4 16:02:56 Mixed hyperlipi demia 848149821 Active 2023 DANII SOUSA NP [address] [place], [address], [place] & [place] 4 08:07:06 Uncontrol led type 2 diabetes mellitus 652437069 Active 2023 DANII SOUSA NP [address] [place], [address], [place] [facility] [place] & [place] 4 08:07:07 Problem Notes None recorded. Procedures Surgical History Date Name Laterality Status Provider Name and Address Organization Details Recorded Time 025 Medicare Annual Wellness Visit Health Risk Assessment completed Anna Ramirez [place] - [facility] [place] & [place] 04/27/2025 08:14:12 024 Medicare Annual Wellness Visit Health Risk Assessment completed Barak Brand [place] - [place] & [place] 03/21/2024 10:59:28 023 Medicare Annual Wellness Visit Health Risk Assessment completed Ebony MARSHALL - [facility] - [place] & [place] 02/05/2023 08:24:14 Cholecystectomy completed Ebony MARSHALL - [facility] - [place] & [place] 08/11/2022 07:38:26 Tonsillectomy completed Ebony MARSHALL - [facility] - [place] & [place] 08/11/2022 07:38:36 Hysterectomy completed Ebony MARSHALL - [facility] - [place] & [place] 08/11/2022 07:38:49 complete repair of rotator cuff completed Ebony MARSHALL [facility] & [place] 08/11/2022 07:39:20 Tubal Ligation completed Ebony MARSHALL [facility] & [place] 08/11/2022 07:39:29 Cataract Surgery completed Ebony MARSHALL [facility] & [place] 08/11/2022 07:39:47 total knee replacement completed Ebony MARSHALL [facility] & [place] 08/11/2022 07:40:34 Imaging Results None recorded. Procedure Notes None recorded. Medical Equipment None Reported. Allergies Allergen ID Allergen Name Allergen Category Reaction Reaction Severity Criticality Documentation Date Start Date Code Code System Note Provider Name and Address Organization Details Recorded Time 480122 morphine medicatio n Not available Not available Not available 01/15/2025 7052 RxNorm Soheila simpson [facility] & [place] 5 08:10:24 733706 Iodinated contrast media (substanc e) medicatio n facial swelling other Not available Not available Not available 01/15/2025 84605 2003 SNOMED Oral swell ing Soheila simpson [facility] & [place] 5 08:11:29 8627 codeine medicatio n dyspnea nausea vomiting severe severe severe Not available 07/27/2022 2670 RxNorm [place] Hutchinson [facility] & [place] 5 16:04:59 8632 erythromy eryn medicatio n Not available Not available Not available 07/27/2022 4053 RxNorm Other react ions and sever ities : 'Adve rse react ion to subst ance' . Anastasia simpson [facility] & [place] 3 14:10:00 8637 oxycodone medicatio n Not available Not available Not available 07/27/2022 7804 RxNorm React ion: hallu cinat ions, sever ity: Unkno wn Not Available [facility] 2 01:57:01 8641 escitalop rufina Not available Not available Not available Not available 07/27/2022 86643 8 RxNorm React ion: night [place] , sever ity: Unkno wn Not Available [facility] 2 01:57:01 8646 sertralin e hydrochlo ride medicatio n Not available Not available Not available 07/27/2022 97786 7 RxNorm React ion: stoma ch upset , sever ity: Unkno wn Not Available [facility] 2 01:57:02 Medications Name Sig Start Date Stop [...] Not Available Not Available Vitals Date Recorded Body height Body mass index (BMI) Body weight Body temperature Oxygen saturation Oxygen saturation in Arterial blood by Pulse oximetry Heart rate Systolic blood pressure Diastolic blood pressure Provider Name and Address Organization Details Last Updated DateTime 5 157.48 cm 33.5 kg/m2 99826.4 g 98.7 [degF] 96 % 96 % 62 /min 145 mm[Hg] 78 mm[Hg] Barak Jadkali n [place] - [facility] & [place] 14:23:26 Date Recorded Systolic blood pressure Diastolic blood pressure Provider Name and Address Organization Details Last Updated DateTime 01/26/2025 148 mm[Hg] 80 mm[Hg] DANII SOUSA NP [address] [place] [address], [id number] & [place] 01/26/2025 14:28:48 Date Recorded Body height Body mass index (BMI) Body weight Body temperature Oxygen saturation Oxygen saturation in Arterial blood by Pulse oximetry Heart rate Systolic blood pressure Diastolic blood pressure Provider Name and Address Organization Details Last Updated DateTime 5 157.48 cm 34.6 kg/m2 12500.9 6 g 98.2 [degF] 95 % 95 % 60 /min 179 mm[Hg] 89 mm[Hg] Barak Jadchin n [place] - [facility] & [place] 14:10:03 Date Recorded Body height Body mass index (BMI) Body weight Body temperature Oxygen saturation Oxygen saturation in Arterial blood by Pulse oximetry Heart rate Respiratory rate Systolic blood pressure Diastolic blood pressure Provider Name and Address Organization Details Last Updated DateTime 5 157.48 cm 35 kg/m2 81553.5 g 97.5 [degF] 96 % 96 % 62 /min 16 /min 164 mm[Hg] 73 mm[Hg] Anna Johnsonjose antonio [place] - [facility] & [place] 11:08:21 Date Recorded Body height Body mass index (BMI) Body weight Body temperature Oxygen saturation Oxygen saturation in Arterial blood by Pulse oximetry Heart rate Respiratory rate Systolic blood pressure Diastolic blood pressure Provider Name and Address Organization Details Last Updated DateTime 5 157.48 cm 34.4 kg/m2 91936.3 7 g 97.3 [degF] 98 % 98 % 60 /min 18 /min 172 mm[Hg] 72 mm[Hg] Gagandeep Dailey [facility] & [place] 5 08:07:03 Date Recorded Systolic blood pressure Diastolic blood pressure Provider Name and Address Organization Details Last Updated DateTime 04/27/2025 148 mm[Hg] 68 mm[Hg] DANII SOUSA NP [address] [place] [address], [address], [facility] & [place] 04/30/2025 16:55:20 Date Recorded Body height Body mass index (BMI) Body weight Body temperature Oxygen saturation Oxygen saturation in Arterial blood by Pulse oximetry Heart rate Respiratory rate Systolic blood pressure Diastolic blood pressure Provider Name and Address Organization Details Last Updated DateTime 157.48 cm 35.2 kg/m2 98230.4 5 g 97.2 [degF] 98 % 98 % 55 /min 14 /min 160 mm[Hg] 79 mm[Hg] Anna Ramirez [facility] & [place] 08:08:03 Social History Question Answer Notes LastModified by Organizat ion Details LastModified Time Tobacco Smoking Status Never Smoker Not Available [facility] 02/05/2023 08:38:34 Do You Have An Advance Directive? Yes Information n ot available 04/27/2025 Do You Wear A Helmet When Biking? Yes [email or web address] Information not available 08/08/2024 Are You Blind Or Do You Have Difficulty Seeing? No [email or web address] Information n ot available 08/08/2024 What Is Your Level Of Caffeine Consumption? Moderate [email or web address] Information not available 02/05/2023 In The 14 Days Before Symptom Onset, Have You Had Close Contact With A Laboratory-confirm ed COVID-19 While That Case Was Ill? No [email or web address] Information n ot available 08/08/2024 In The 14 Days Before Symptom Onset, Have You Had Close Contact With A Person Who Is Under Investigation For COVID-19 While That Person Was Ill? No Information not available 08/08/2024 Have You Been To An Area Known To Be High Risk For COVID-19? No Information not available 08/08/2024 Are You Deaf Or Do You Have Serious Difficulty Hearing? No [email or web address] Information not available 08/08/2024 What Type Of Diet Are You Following? REGULAR [email or web address] Information n ot available 08/08/2024 Have You Processed Blood Or Body Fluids From An Ebola Virus Disease Patient Without Appropriate PPE? No [email or web address] Information not available 08/08/2024 Do You Reside In Or Have You Traveled To An Area Where Ebola Virus Transmission Is Active? No [email or web address] Information not available 08/08/2024 Have There Been Any Changes To Your Family Or Social Situation? No Information no t available 08/08/2024 What Is The Fluoride Status Of Your Home? Unknown Information not available 08/08/2024 Are There Any Guns Present In Your Home? No [email or web address] Information not available 08/08/2024 Have You Recently Or Are You Planning To Travel To An Area With Zika Virus? No [email or web address] Information not available 08/08/2024 Do You Use Insect Repellent Routinely? Yes [email or web address] Information not available 08/08/2024 In General, Would You Say Your Health Is Good [email or web address] Information not available 08/08/2024 How Would You Describe The Condition Of Your Mouth And Teeth i ncluding False Teeth Or Dentures? Good [email or web address] Information n ot available 08/08/2024 In The Past 7 Days, How Many Servings Of Fruits And Vegetables Did You Typically Eat Each Day? (1 Serving = 1 Cup Of Fresh Vegetables, 1 2 Cup Of Cooked Vegetables, Or 1 Medium Piece Of Fruit. 1 Cup = Size Of A Baseball.) 3-4 Servings Per Day [email or web address] Information not available 08/08/2024 In The Past 7 Days, How Many Servings Of High Fiber Or Whole Grain Foods Did You Typically Eat Each Day? (1 Serving = 1 Slice Of 100% Whole Wheat Bread, 1 Cup Of Whole-grain Or High-fiber Qwbjs-bq-vul Cereal, 1 2 Cup Of Cooked Cereal Such As Oatmeal, Or 1 2 Cup Of Cooked Brown Rice Or Whole Wheat Pasta.) 3-4 Servings Per Day [email or web address] Information not available 08/08/2024 In The Past 7 Days, How Many Servings Of Fried Or High-fat Foods Did You Typically Eat Each Day? (Examples Include Fried Chicken, Fried Fish, Tucker, Northern Irish Redwood, Potato Chips, Wellman Chips, Doughnuts, Creamy Salad Dressings, And Foods Made With Whole Milk, Cream, Cheese, Or Mayonnaise.) 1-2 Servings Per Day [email or web address] Information not available 08/08/2024 In The Past 7 Days, How Many Sugar-sweetened (not Diet) Beverages Did You Typically Consume Each Day 1-2 Drinks Per Day [email or web address] Information not available 08/08/2024 Each Night, How Many Hours Of Sleep Do You Usually Get? 6-7 Hours [email or web address] Information not available 08/08/2024 Do You Snore Or Has Anyone Told You That You Snore? No Information not available 08/08/2024 In The Past 7 Days, How Often Have You [place] Sleepy During The Daytime? Sometimes [email or web address] Information not available 08/08/2024 Do You Have Chronic Pain? Yes [email or web address] Information not available 08/08/2024 In The Past 7 Days, How Would You Rate Your Pain? Moderate Pain(4-6) [email or web address] Information not available 08/08/2024 Are You In A Pain Management Program? No [email or web address] Information not available 08/08/2024 Do You Take Opioids For Your Pain? No [email or web address] Information not available 08/08/2024 How Often Is Stress A Problem For You In Handling Such Things As: Your Health, Your Finances, Your Family And Social Relationships, Your Work? Never Or Rarely [email or web address] Information not available 08/08/2024 How Often Do You Get The Social And Emotional Support You Need: Always [email or web address] Information not available 08/08/2024 In The Past 7 Days, Did You Need Help From Others To Take Care Of Things Such As Laundry And Housekeep- Ing, Banking, Shopping, Using The Telephone, Food Preparation, Transportation, Or Taking Your Own Medications? No Information not available 08/08/2024 Do You Live Alone? No [email or web address] Inform ation not available 08/08/2024 Does Your Home Have Any Fall Risks (un-level Floors, Unfastened Rugs, Poor Lighting, Etc)? No [email or web address] Information not available 08/08/2024 Do You Feel Safe At Home? Yes [email or web address] Information not available 08/08/2024 Do You Have A Medical Power Of Outside Production Inspector? Yes Information not available 04/27/2025 What Was The Date Of Your Most Recent Tobacco Screening? 01/26/2025 [email or web address] Information not available 01/26/2025 Do You Have Any Pets? No [email or web address] Information not available 08/08/2024 What Is Your Relationship Status? Information not available 04/27/2025 Do You Use Your Seat Belt Or Car Seat Routinely? Yes [email or web address] Information not available 08/08/2024 Are You Sexually Active? No Information not available 04/27/2025 Do You Have Smoke And Carbon Monoxide Detectors In Your Home? Yes [email or web address] Information not available 08/08/2024 Are You Passively Exposed To Smoke? No [email or web address] Information no t available 08/08/2024 Do You Use Sunscreen Routinely? Yes [email or web address] Information not available 08/08/2024 Has Tobacco Cessation Counseling Been Provided? No CHART_[email or web address] Information not available 02/05/2023 Do You Have Difficulty Walking Or Climbing Stairs? No [email or web address] Information not available 08/08/2024 Are You Currently In School? No [email or web address] Information not available 08/08/2024 Sex: Unknown Functional [...] available 02/05/2023 Are you currently employed? No [email or web address] Information not available 08/08/2024 Do you have transportation difficulties? No [email or web address] Information not available 08/08/2024 Are you able to walk? YESWOREST [email or web address] Information not available 08/08/2024 Do you have difficulty doing errands alone? No [email or web address] Information not available 08/08/2024 Are you able to care for yourself? Yes Information not available 08/08/2024 Do you have difficulty dressing or bathing? No [email or web address] Information not available 08/08/2024 What is your exercise level? None [email or web address] Information not available 08/08/2024 Mental Status Question Answer Note LastModified by Organizat ion Details LastModified Time Do you feel stressed (tense, restless, nervous, or anxious, or unable to sleep at night)? [id number] [email or web address] Information not available 08/08/2024 Do you have difficulty concentrating, remembering or making decisions? No Information no t available 08/08/2024 Family History [...] Details Recorded Time Influenza, high-dose, quadrivalent, PF completed DANII SOUSA NP [address] [place] [address], [id number], [facility] & [place] 08/12/2022 18:44:27 COVID-19, mRNA, LNP-S, PF, 30 mcg/0.3 mL dose 1 completed Not Available [facility] 06/21/2023 11:42:37 COVID-19, mRNA, LNP-S, PF, 30 mcg/0.3 mL dose 1 completed Not Available [facility] 06/21/2023 11:42:37 Influenza, adjuvanted, quadrivalent, PF 1 completed Not Available [facility] 06/21/2023 11:42:37 Pneumococcal conjugate PCV20, polysaccharide KPS115 conjugate, adjuvant, PF 2 completed Not Available [facility] 06/21/2023 11:42:37 COVID-19, mRNA, LNP-S, PF, 30 mcg/0.3 mL dose, lam-sucrose 2 completed Not Available [facility] 06/21/2023 11:42:37 Tdap 3 completed DANII SOUSA NP [address] [place], [address], [facility] & [place] 08/02/2023 16:19:22 Influenza, high-dose, quadrivalent, PF 3 completed DANII SOUSA NP [address] [place], [address], [facility] - [facility] & [place] 08/02/2023 16:19:22 COVID-19, mRNA, LNP-S, bivalent, PF, 30 mcg/0.3 mL dose 2 completed Not Available [facility] 06/21/2023 11:42:37 Influenza, split virus, trivalent, PF 7 completed Not Available [facility] 06/21/2023 11:42:37 COVID-19, mRNA, LNP-S, PF, 30 mcg/0.3 mL dose 1 completed Not Available [facility] 06/21/2023 11:42:37 Influenza, split virus, trivalent, PF 5 completed Not Available [facility] 06/21/2023 11:42:37 pneumococcal polysaccharide PPV23 6 completed Not Available [facility] 06/21/2023 11:42:37 Influenza, adjuvanted, quadrivalent, PF 0 completed Not Available [facility] 06/21/2023 11:42:37 Pneumococcal conjugate PCV 13 5 completed Not Available [facility] 06/21/2023 11:42:37 RSV, recombinant, protein subunit RSVpreF, adjuvant reconstituted, 0.5 mL, PF 3 completed Barak Brand null, [place] - [facility] - [place] & [place] 02/01/2024 07:57:45 COVID-19, mRNA, LNP-S, PF, lam-sucrose, 30 mcg/0.3 mL 3 completed Barak Brand null, [place] - [facility] - [place] & [place] 02/01/2024 07:57:45 Influenza, high-dose, trivalent, PF 4 completed Barak Brand null, [place] - [facility] - [facility] & [place] 08/21/2024 10:57:57 zoster recombinant 4 completed Barak Brand null, [place] - [facility] - [facility] & [place] 08/21/2024 10:58:08 zoster recombinant 5 completed DANII SOUSA NP [address] [place] [address], [address], [place] - [facility] & [place] 11/19/2024 11:15:16 COVID-19, mRNA, LNP-S, PF, 50 mcg/0.5 mL 5 completed Anna Ramirez null, [place] - [facility] - [place] & [place] 04/27/2025 08:08:31 Past Encounters Encounter ID Performer Location Encounter Start Date Encounter Closed Date Diagnosis/Indication Diagnosis SNOMED-CT Code Diagnosis ICD10 Code Diagnosis Note [id number] DANII SOUSA NP [facility] [address] [address] 08/11/2022 09:21:11 08/11/2022 11:02:12 Diabetes mellitus without complication 787635640 E11.9 take medication s as prescribed awaiting fogg5jgzwz forced diet and lifestyle changesdai ly foot checkyearl y eye examfollow up every 3 months Essential hypertension 29952902 I10 educated on goal of less than 130/90repo rts running 100 to 140 at home, declines changing medication s, will take her lasix today to help with BPadvised low sodium diet, healthy lifestyle including exercise as ablecontin ue current medication regimenER if any symptoms such as chest pain, shortness of breath Mixed hyperlipidemia 267 944862 E78.2 Administra tion of influenza vaccine 83748636 Z23 [id number] KEMI TANG[address] [address] 10/16/2022 11:47:46 10/16/2022 12:26:26 Cough 05962126 R05.1 Acute bronchitis 8382448 2 J20.9 Upper resp iratory infection 63219386 J06.9 Patient presented with symptoms of upper respirator y infection. Advised to drink plenty of fluids, run a cool-mist humidifier in room at night, gargle salt water for sore throat, and get plenty of rest. Patient should avoid over-exert ion and reduce exposure to irritants such as smoke, cold, dry air, and dust. Treatment currently involves symptomati c relief. Patient may take acetaminop hen or ibuprofen as directed to reduce fever and body aches. Antihistam ine and decongesta nt usage was discussed and recommenda tions made. Patient understood these instructio ns and will follow up in the office in 10 days to 2 weeks if symptoms not improving. [id number] KEMI TANG[address] [address] 11/05/2022 07:51:33 11/05/2022 08:36:28 Diabetes mellitus without complication 947465622 E11.9 take medication s as prescribed awaiting erik3kfnbo forced diet and lifestyle changesdai ly foot checkyearl y eye examfollow up every 3 months lab work drawn in clinic today by jessica Essential hypertension 93718475 I10 educated on goal of less than 130/90advi sed low sodium diet, healthy lifestyle including exercise as ablecontin ue current medication regimenER if any symptoms such as chest pain, shortness of breath Mixed hyperlipidemia 267 444001 E78.2 [id number] [facility] Karly [address] [place] [address] 02/05/2023 07:46:08 02/05/2023 08:56:11 Diabetes mellitus without complication 891256401 E11.9 take medication s as prescribed awaiting qjec6sflp been 8 and not controlled reinforced diet and lifestyle changesdai ly foot checkyearl y eye examfollow up every 3 monthsunab le to afford farxiga has been using samples lab work drawn in clinic today by jessica soria th examination 626925499 Z00.00 Patient presented to office today for [...] reduce health risks and promote healthy living. Mixed hyperlipidemia 267 138050 E78.2 Patient advised to exercise, eat a prudent diet and lose weight as appropriat e. 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 [id number] DANII SOUSA NP [facility] [address] [place] [address] 04/23/2023 13:35:45 04/23/2023 15:12:24 Essential hypertension 49112232 I10 educated on goal of less than 130/90meet ing goaladvise d low sodium diet, healthy lifestyle including exercise as ablecontin ue current medication regimenER if any symptoms such as chest pain, shortness of breath Pre-surger y evaluation 729710754 Z01.818 EKG reviewed; normal sinus rhythm without acute concernsfo rm filled out, scanned into chart and faxed to ortho [facility] [id number] 00143 M25.561 see scanned in document for surgery clearancea verage risk based on ASC risk calculator Diabetes m ellitus without complication 994020861 E11.9 take medication s as prescribed awaiting fckl1txdlh forced diet and lifestyle changesdai ly foot checkyearl y eye examfollow up every 3 monthsunab le to afford jason has been using samples; pt assistance forms given lab work drawn in clinic today by levy sousa left am [id number] DANII SOUSA NP [address] [place] [address] 08/02/2023 08:20:37 08/02/2023 08:59:59 Diabetes mellitus without complication 320916079 E11.9 declines statintake medication s as prescribed awaiting wbhk3udqke forced diet and lifestyle changesdai ly foot checkyearl y eye examfollow up every 3 months Essential hypertension 42427210 I10 educated on goal of less than 130/90meet ing goaladvise d low sodium diet, healthy lifestyle including exercise as ablecontin ue current medication regimenER if any symptoms such as chest pain, shortness of breath Administra tion of influenza vaccine 13698167 Z23 Administra tion of viral vaccine 73183820 Z23 [id number] DANII SOUSA NP [place] [address] [address] [place] [address] 09/08/2023 11:49:14 09/08/2023 12:23:58 Bunion 485610323 M21.619 see scanned in document Foot callus 177523637 L8 4 Type 2 chrisys betes mellitus 62903415 E11.9 control of chronic conditions check feet dailyneeds good supportive shoes Osteoarthritis 270631119 M19.90 discussed use only as needed due to risk of kidney impairment [id number] Amish Caicedo MD [address] [place] [address] 10/29/2023 09:50:31 10/29/2023 10:47:36 Diabetes mellitus without complication 934996541 E11.9 declines statintake medication s as prescribed awaiting pags5ynodk forced diet and lifestyle changesdai ly foot checkyearl y eye examfollow up every 3 months Essential hypertension 84666052 I10 educated on goal of less than 130/90meet ing goaladvise d low sodium diet, healthy lifestyle including exercise as ablecontin ue current medication regimenER if any symptoms such as chest pain, shortness of breath [id number] DANII SOUSA NP [address] [place] [address] 02/01/2024 07:48:34 02/01/2024 08:44:16 Diabetes mellitus without complication 355283803 E11.9 declines statintake medication s as prescribed awaiting ygmb9tretd forced diet and lifestyle changesdai ly foot checkyearl y eye examfollow up every 3 months Essential hypertension 96450897 I10 educated on goal of less than 130/90meet ing goaladvise d low sodium diet, healthy lifestyle including exercise as ablecontin ue current medication regimenER if any symptoms such as chest pain, shortness of breath Pain of mu ltiple joints 32148979 M25.50 pt concerns with osteo vs RAawaiting lab workcontin ue diclofenac therapy Insomnia 287941699 G47.0 9 sleep hygieneres tart trazodone Osteoarthritis 981025184 M19.90 discussed use only as needed due to risk of kidney impairment [id number] Amish Caicedo MD [address] [place] [address] 02/02/2024 08:01:21 02/02/2024 08:10:16 Laboratory test due 887574184 Z76.89 [place] did not draw enough blood pt had to return [id number] DANII SOUSA NP [address] [place] [address] 03/21/2024 10:33:49 03/21/2024 13:39:04 Adult health examination 118765570 Z00.00 Patient presented to office today for [...] reduce health risks and promote healthy living. [id number] DANII SOUSA NP [address] [place] [address] 05/09/2024 07:49:14 05/09/2024 09:03:22 Essential hypertension 74342548 I10 educated on goal of less than 130/90advi sed low sodium diet, healthy lifestyle including exercise as ablecontin ue current medication regimenER if any symptoms such as chest pain, shortness of breath Diabetes m ellitus without complication 240229925 E11.9 declines statintake medication s as prescribed awaiting nost3pmebw forced diet and lifestyle changesdai ly foot checkyearl y eye examfollow up every 3 months Herpes zoster 6859448 B0 2.9 discussed medication shingles careadd on gabapentin for pain [id number] DANII SOUSA NP [address] [place] [address] 04/26/2024 09:43:46 04/27/2024 09:26:56 Nasal congestion 77551020 R09.81 flu and covid negative but likely too early to teststay well hydratedre stsymptoma tic management ; only OTC medication s safe for HTNER if any urgent signs or symptoms arise Herpes zoster 0239709 B0 2.9 discussed medication shingles care Essential hypertension 45416926 I10 took OTC medication this morning that has increased BPasymptom aticf/u 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 if any urgent signs or symptoms arise [id number] DANII SOUSA NP [address] [place] [address] 04/28/2024 09:01:08 04/28/2024 11:30:53 Essential hypertension 82729358 I10 educated on goal of less than 130/90advi sed low sodium diet, healthy lifestyle including exercise as ablecontin ue current medication regimenimp roved from last visit, refill providedER if any symptoms such as chest pain, shortness of breath Herpes zoster 6645539 B0 2.9 discussed medication shingles careadd on gabapentin for pain [id number] Amish Caicedo MD [address] [place] [address] 06/30/2024 14:07:38 06/30/2024 14:48:32 Cough 68589438 R05.1 COVID-19 970620466 U07.1 declines nebulizer or inhaler therapy due to adverse reactionss kesha well hydratedre stmedicati ons as prescribed symptomati c management quarantine guidelines based on current [facility] health guidelines ER if any urgent signs or symptoms arisediscu ssed risk vs benefit of paxlovid, possible medication interactio ns Essential hypertension 19383444 I10 clonidine dose given in clinic; no adverse reactions to medication and BP recheck after 20 minutes was 180/90asym ptomaticwi shes to monitor and go to ER if does not improve; reports son lives with her and will check on her frequently [id number] Amish Caicedo MD [address] [place] [address] 08/08/2024 08:17:52 08/08/2024 09:01:12 Essential hypertension 48183368 I10 educated on goal of less than 130/90advi sed low sodium diet, healthy lifestyle including exercise as ablecontin ue current medication regimenER if any symptoms such as chest pain, shortness of breath Mixed hyperlipidemia 267 700100 E78.2 declines statin therapy, continue with lifestyle changes Uncontroll ed type 2 diabetes mellitus 224679436 E11.65 take medication s as prescribed awaiting mfaj1sfrgh forced diet and lifestyle changesdai ly foot checkyearl y eye examfollow up every 3 months Low back pain 104025561 M54.50 discussed heat, topical therapy will give steroid injection today of 4 in 40, follow-up if symptoms persist will recommend imaging and physical therapydec lines giving urine to check for UTI [id number] DANII SOUSA, KEMI [address] [place] [address] 08/21/2024 09:01:51 08/21/2024 11:59:38 Administration of influenza vaccine 52442708 Z23 Herpes z[address] ter vaccination given 2651561076 88015 Z23 Essential hypertension 69668080 I10 educated on goal of less than 130/90advi sed low sodium diet, healthy lifestyle including exercise as ablecontin ue current medication regimenER if any symptoms such as chest pain, shortness of breath Osteoarthr itis of right hip joint 4752599673 74310 M16.11 return to ortho for injectionu nable to afford repeat xrays right now 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 will restart gabapentin that she still has to see if relieves [id number] DANII SOUSA NP [facility] [address] [place] [address] 11/17/2024 14:11:38 11/17/2024 15:21:16 Fatigue 61902582 R53.83 blood drawn in the Left forearm by Anna Ramirez CMA, patient tolerated well.sleep hygieneawa iting lab workdeclin es sleep study at this time Essential hypertension 84654698 I10 educated on goal of less than 130/90advi sed low sodium diet, healthy lifestyle including exercise as ablecontin ue current medication regimenER if any symptoms such as chest pain, shortness of breath Insomnia 077734915 G47.0 9 continue with trazodone therapywor k on overactive bladder Type 2 chrissy betes mellitus 66294704 E11.9 control of chronic conditions check feet dailyneeds good supportive shoestake medication s as prescribed awaiting tznl6ztipn forced diet and lifestyle changesdai ly foot checkyearl y eye examfollow up every 3 months Active or passive immunization 910027440 Z23 Overactive urinary bladder 043773250 N32.81 discussed starting medication including administra tion, side effectsedu cation provided on disease processuna ble to give urine today in clinic to check for UTI [id number] DANII SOUSA NP [facility] [address] [place] [address] 02/19/2025 07:45:49 02/19/2025 08:31:09 Uncontrolled type 2 diabetes mellitus 653238003 E11.65 take medication s as prescribed awaiting tibg5ndlbz forced diet and lifestyle changesdai ly foot checkyearl y eye examfollow up every 3 months Mixed hyperlipidemia 267 101276 E78.2 declines statin therapy, continue with lifestyle changes Recurrent urinary tract infection 215448052 N39.0 Taking her last dose of Macrobid today, unable to give urine, urinated before she came in today, follow-up if symptoms return, currently reports symptoms have resolved Overactive urinary bladder 580984740 N32.81 continue with oxybutynin therapy, much improved Essential hypertension 09413980 I10 educated on goal of less than 130/90advi sed low sodium diet, healthy lifestyle including exercise as ableelemtt ed today because she has not had her medication yet, asymptomat icER if any symptoms such as chest pain, shortness of breath [id number] DANII SOUSA NP [address] [place] [address] 01/26/2025 13:54:16 01/29/2025 08:25:49 Disorder of eyelid 59241090 H02.89 cool compresses , keep clean and dry, avoid rubbing eye, discussed use of ointment and valacyclov ir since around her eye was where she had shingles before and due to current irritation want to try to prevent another outbreak; patient does have erythromyc in allergy but this is when she took orally for the flu once and caused her to get diarrhea, okay with topical [id number] Amish Caicedo MD [address] [place] [address] 02/14/2025 10:40:47 02/14/2025 11:20:31 Dysuria 28568528 R30.0 will treat patient empiricall y with medication . We are awaiting results of culture. [id number] DANII SOUSA NP [address] [place] [address] 04/27/2025 07:47:15 05/01/2025 08:18:11 Adult health examination 055090125 Z00.00 Patient presented to office today for [...] living. Uncontroll ed type 2 diabetes mellitus 157324924 E11.65 take medication s as prescribed awaiting ilmw6gvfwx forced diet and lifestyle changesdai ly foot checkyearl y eye examfollow up every 3 months Mixed hyperlipidemia 267 625318 E78.2 declines statin therapy, continue with lifestyle changes Essential hypertension 35521706 I10 educated on goal of less than 130/90advi sed low sodium diet, healthy lifestyle including exercise as ablecontin ue current medication regimenER if any symptoms such as chest pain, shortness of breath Dysuria 59394740 R30.0 Office UA suggesting UTI, urine sent [...] emergency room immediatel y Low back pain 581297116 M54.50 discussed heat, , follow-up if symptoms persist will recommend imaging and physical therapy Heart murmur 41625499 R0 1.1 asymptomat icget baseline echo; declines cardiology at this time Screening for osteoporosis 694340353 Z13.820 Fatigue 94297936 R53.83 we will plan to get lab work at next visit Educated on sleep hygiene, screen time, diet, exercise Follow-up if symptoms persist or worsen discussed anxiety and considerin vonnie Tellez due to her chronic pain this may be a good fit for her chronic pain and anxiety Contusion of left foot 0380339019 7798698 S90.32XA reports comes and goes, will document next time for better informatio n of how long this lasted, not present today Health Concerns Section Related Observation LastModified by Organization Detai ls LastModified Time None Recorded Concern Status LastModified by Organization Details LastModified Time None Recorded Advance Directives Directive Y: Payers Insurance Date Sequence Insurance Name Policy Number Policy Mendoza Covered Member ID Mendoza Member ID Guarantor Name 05/01/2025 1 [employer] (MEDICARE REPLACEMENT/A DVANTAGE - PPO) Oly Jones [id number] Notes Date Note Type Note Provider Name and Address Organization Details Recorded Time 11/17/2024 text/html 83-year-old fema tyrone who presents for follow-up on chronic care. She reports she has not felt good since having COVID, has fatigue. She is not sleeping well. She wakes up to urinate and seems like it is progressively getting worse. She denies any symptoms of UTI, unable to give a urine sample today. She has tried unknown medication for overactive bladder in the past but did not work. She needs her 2nd shingles vaccine today. Denies any episodes of hyper or hypoglycemia. She denies any chest pain shortness of breath or swelling. Blood pressure is up and down. DANII SOUSA NP [address] [place], [address], [facility] & [place] 11/19/2024 11:18:45 01/26/2025 text/html 84-year-old martin hansen who presents with right eye drainage, itchy, slight burning, denies any changes to vision. This is the same eye that she had shingles around her skin. Denies any fever, chills. Denies any new eye products. DANII SOUSA NP [address] [place], [address], [facility] & [place] 01/26/2025 14:28:53 02/14/2025 text/html Patient presents with symptoms suggestive of a UTI. These include urinary frequency, dysuria and urgency. She denies having a fever, nausea or vomiting. Amish Caicedo MD [address] [place] [address], [address], [facility] & [place] 02/14/2025 11:33:38 02/19/2025 text/html 84-year-old martin hansen who presents for chronic care follow-up. Was seen by other provider and given Macrobid for urinary tract infection, symptoms are improving. Also reports great improvement with oxybutynin using less feminine pads. Is trying to only use diclofenac once daily. Was unable to continue with magnesium as it gave her diarrhea. Blood pressure is elevated today but she has not taken her medication yet. Denies any chest pain shortness of breath or swelling. Denies any symptoms of hyper or hypoglycemia. Denies any wounds or ulcers on her feet. DANII SOUSA NP [address] [place], [address], [facility] & [place] 02/19/2025 08:25:13 04/27/2025 text/html Patient presents for annual visit.Vision [...] least 3 days. Is using her Lasix Wednesday. She has increased fatigue lately but not [...] came and went, not present today DANII SOUSA NP [address] [place] [address], [address], [facility] - [place] & [place] 04/30/2025 17:03:08 OBGyn Episode No OBEpisode recorded.
--- NOTE | 2025-05-04 14:06 | P.PN_ITS ---
<Statement entered by Real Ocasio MD - 05/09/25 22:27> Evaluated by the patient and agree with plan of care as outlined by the UTILITY APPRAISER. Subjective *Date: 05/04/25 *Time: 15:25 Interval history: Patient sitting up in the bed, 2 L nasal cannula in place. She states she had overall a good night, her shortness of breath feels better today. She denies chest pain, weakness. She does complain of epigastric pain. Cardiology consulted for further evaluation. Medical Exam Vital signs and Labs for Last 24 Hours: Vital Signs Temp Pulse Pulse Resp BP Pulse Ox O2 Del Method 05/04/25 13:35 97.6 F 67 16 134/58 L 98 Nasal Cannula 05/04/25 13:20 97.6 F 68 16 140/68 98 Nasal Cannula 05/04/25 13:10 65 20 174/77 H 92 L Room Air 05/04/25 13:00 68 20 176/84 H 94 L Room Air 05/04/25 12:55 68 20 176/84 H 90 L Nasal Cannula 05/04/25 12:54 70 70 20 143/84 H 90 L Room Air 05/04/25 12:50 68 20 175/84 H 90 L Nasal Cannula 05/04/25 10:38 Room Air 05/04/25 09:00 Nasal Cannula 05/04/25 08:00 Nasal Cannula 05/04/25 07:59 87 05/04/25 07:47 98.5 F 80 17 150/55 H 95 Nasal Cannula 05/04/25 06:30 Nasal Cannula 05/04/25 05:00 Nasal Cannula 05/04/25 04:51 75 05/04/25 04:00 98.3 F 80 20 155/59 H 96 Nasal Cannula 05/04/25 03:00 Nasal Cannula 05/04/25 01:00 Nasal Cannula 05/04/25 00:00 60 05/04/25 00:00 98.2 F 74 20 125/64 95 Nasal Cannula 05/03/25 23:00 Nasal Cannula 05/03/25 21:00 Nasal Cannula 05/03/25 20:00 Nasal Cannula 05/03/25 19:59 98.0 F 79 22 167/73 H 94 L Nasal Cannula 05/03/25 19:44 65 05/03/25 18:47 Nasal Cannula 05/03/25 18:45 97.8 F 81 18 128/98 H 92 L Nasal Cannula O2 Flow Rate 05/04/25 13:35 3 05/04/25 13:20 3 05/04/25 13:10 05/04/25 13:00 05/04/25 12:55 2 05/04/25 12:54 05/04/25 12:50 2 05/04/25 10:38 05/04/25 09:00 2 05/04/25 08:00 2 05/04/25 07:59 05/04/25 07:47 05/04/25 06:30 2 05/04/25 05:00 2 05/04/25 04:51 05/04/25 04:00 2 05/04/25 03:00 2 05/04/25 01:00 2 05/04/25 00:00 05/04/25 00:00 2 05/03/25 23:00 2 05/03/25 21:00 2 05/03/25 20:00 2 05/03/25 19:59 2 05/03/25 19:44 05/03/25 18:47 2 05/03/25 18:45 2 Intake and Output 05/03/25 05/04/25 05/04/25 23:59 07:59 15:59 Intake Total 150 / 150 Output Total 150 / 150 200 / 500 300 / 500 Balance -150 / -150 -200 / -350 -150 / -350 Intake: Intake, Total IV Amount 150 / 150 Magnesium Sulfate in Water 2 gm 150 / 150 In 50 ml @ 50 mls/hr IV Q1H [facility] Rx#:[id number] Output: Output, Urine Amount 150 / 150 200 / 500 300 / 500 Other: Weight 87.09 kg 87.317 kg Patient Weight 05/04/25 23:59 Weight 87.317 kg Laboratory Results - last 24 hr 05/03/25 22:56: WBC 15.8 H, RBC 4.42, Hgb 13.0, Hct 38.4, MCV 86.9, MCH 29.4, MCHC 33.9, RDW 13.3, Plt Count 284, MPV 9.0, Neut % (Auto) 92.3 H, Lymph % (Auto) 3.7 L, [place] % (Auto) 3.0, Eos % (Auto) 0.4, Baso % (Auto) 0.2, Neut # (Auto) 14.6 H, Lymph # (Auto) 0.6 L, [place] # (Auto) 0.5, Eos # (Auto) 0.1, Baso # (Auto) 0.0, Sodium 131 L, Potassium 3.2 L, Chloride 88 L, Carbon Dioxide 37 H, Anion Gap 9.2, BUN 12, Creatinine 0.80, Estimated Creat Clear 58, Estimated GFR 68, Est GFR ( Amer) 83, Glucose 178 H, Calcium 9.2, Total Bilirubin 0.6, AST 27, ALT 28, Alkaline Phosphatase 69, Troponin I 0.14 H, NT-Pro-B Natriuret Pep 4090 H, Total Protein 6.6, Albumin 3.8, Globulin 2.8, Albumin/Globulin Ratio 1.4, TSH 0.38 L, Free T4 1.27 05/04/25 02:25: Troponin I 0.13 H 05/04/25 05:25: POC Glucose 124 H 05/04/25 08:10: WBC 11.9 H, RBC 4.73, Hgb 13.9, Hct 41.9, MCV 88.6, MCH 29.4, MCHC 33.2, RDW 13.4, Plt Count 258, MPV 9.1, Neut % (Auto) 85.5 H, Lymph % (Auto) 6.3 L, [place] % (Auto) 5.4, Eos % (Auto) 2.2, Baso % (Auto) 0.3, Neut # (Auto) 10.2 H, Lymph # (Auto) 0.8, [place] # (Auto) 0.7, Eos # (Auto) 0.3, Baso # (Auto) 0.0, Sodium 136, Potassium 4.0 D, Chloride 95 L, Carbon Dioxide 39 H, Anion Gap 6.0, BUN 11, Creatinine 0.80, Estimated Creat Clear 58, Estimated GFR 68, Est GFR ( Amer) 83, Glucose 136 H D, Calcium 8.8, Magnesium 1.3 L, Total Bilirubin 0.5, AST 32, ALT 29, Alkaline Phosphatase 74, Total Protein 6.4, Albumin 3.8, Globulin 2.6, Albumin/Globulin Ratio 1.5 05/04/25 08:32: Urine Color Yellow, Urine Appearance Clear, Urine pH 6.0, Ur Specific [place] 1.015, Urine Protein 1+ A, Urine Glucose (UA) Negative, Urine Ketones Negative, Urine Blood Negative, Urine Nitrate Negative, Urine Bilirubin Negative, Urine Urobilinogen 0.2, Ur Leukocyte Esterase Negative 05/04/25 09:45: POC Glucose 134 H 05/04/25 12:36: Activated Clotting Time 341 H* 05/04/25 12:40: Lactate 0.6 L I & O for Labs for Last 24 Hours: Intake & Output 05/01/25 05/02/25 05/03/25 05/04/25 23:59 23:59 23:59 23:59 Intake Total 150 / 150 Output Total 150 / 150 500 / 500 Balance -150 / -150 -350 / -350 Weight 87.09 kg 87.317 kg Constitutional: Present no acute distress and cooperative Head: Present atraumatic Eyes: Present as per HPI ENT: Present normal exam Neck: Present normal inspection and full ROM Respiratory: Present CTA bilaterally, able to speak in complete sentences and symmetric chest movement Cardiac: Present Reg Rate and Rhythm GI: Present soft and normal bowel sounds; Absent distention or tenderness Rectal (female): Present deferred (female): Present deferred Extremities: Present normal inspection and full ROM Skin: Present intact and dry Neuro: Present alert, awake, oriented x 3 and moves all extremities Assessment and Plan *Assessment and plan (1) CHF exacerbation: Status: Acute Category: Medical Code(s): I50.9 - Heart failure, unspecified (2) Renal artery stenosis: Status: Acute Category: Medical Code(s): I70.1 - Atherosclerosis of renal artery (3) Diabetes mellitus: Status: Acute Qualifiers: Diabetes mellitus complication status: without complication Diabetes mellitus salvage determiner insulin use: without chcf use Diabetes mellitus type: type 2 Qualified Code(s): E11.9 - Type 2 diabetes mellitus without complications Category: Medical Code(s): E11.9 - Type 2 diabetes mellitus without complications (4) HLD (hyperlipidemia): Status: Acute Qualifiers: Hyperlipidemia type: mixed hyperlipidemia Qualified Code(s): E78.2 - Mixed hyperlipidemia Category: Medical Code(s): E78.5 - Hyperlipidemia, unspecified (5) HTN (hypertension): Status: Acute Qualifiers: Hypertension type: primary hypertension Qualified Code(s): I10 - Essential (primary) hypertension Category: Medical Code(s): I10 - Essential (primary) hypertension (6) Epigastric pain: Status: Acute Category: Medical Code(s): R10.13 - Epigastric pain (7) Dyspnea: Status: Acute Category: Medical Code(s): R06.00 - Dyspnea, unspecified (8) Type 1 non-ST elevation myocardial infarction (NSTEMI): Status: Acute Category: Medical Code(s): I21.4 - Non-ST elevation (NSTEMI) myocardial infarction Plan Oly Jones is a 84-year-old female with a medical history of former ID, type 2 diabetes, hypertension who presented as a transfer from [facility] for new onset heart failure. Unfortunately, at hospital does not have the ability to do ECHO on a daily basis. They reached out to Dr. Chiu who recommended transfer to our facility for further evaluation and management. On arrival, patient was sitting in bed comfortably without acute distress. She states she has been having progressive shortness of breath over the past few days and thus presented to the ER. On arrival, patient was noted to be hypoxic and placed on 2 L. CXR there showed pulmonary edema with BNP 550, mildly elevated high-sensitivity troponins that peaked at 30. Of note, patient was noted to have 70% left renal artery stenosis at that facility. I discussed case with the ER attending and decision was made to accept patient for new onset heart failure. #Acute hypoxic respiratory failure #Pulmonary edema #New onset heart failure exacerbation, unknown type #Former ID #NSTEMI type I ? Transferred from [facility] after presenting with progressive shortness of breath, hypoxic with 2 L. Patient remains on 2 L nasal cannula, O2 saturation 96%. Room air saturation 90 to 92% today. Plans to wean back to room air as tolerated. ?Patient is status post left heart cath, received 1 stent to the LAD. ? Initially was given IV Lasix 40 mg daily, spironolactone 25 mg. Transition to Bumex 1 mg IV twice daily post cath. Continue to monitor for diuresis and output. ? Follow-up ECHO, LVEF is 60%. ? Cardiology consulted, recommendations post cath: Plavix and aspirin, treatment of essential hypertension, LDL below 55. Cardiac rehab at discharge. ? Continue home aspirin, statin, atenolol. ? Will monitor labs in the morning CBC, CMP, lipid panel, liver panel. #Type 2 diabetes ? Hemoglobin A1c pending. ? LDSSI, ACHS glucose checks. #Hypertension ? Resume home medications once reconciled. Full code Cardiac diet Ambulate as tolerated Aspirin Plavix VTE
[2025-05-04 15:37] LABS: Bacteria,Urine Trace /lpf; Squamous Epithelial Cell,Urine Occasional #/hpf (0-5)
[2025-05-04 16:03] LABS: POC Glucose,Bedside 150 (70-110)
--- NOTE | 2025-05-04 16:19 | PC.NURSE ---
right wrist band cath removed. 2x2 non adherent placed with tegaderm c/d/i.
[2025-05-04] MEDS: BUMETANIDE 1MG/4ML VIAL 1 MG IV (17:05)
[2025-05-04] MEDS: HYDROCODONE/APAP 5/325 MG TABLET 1 TAB PO (17:50)
--- NOTE | 2025-05-04 18:18 | PC.NURSE ---
Aox 4, up with assistance times one, 02-2L nc sats in the 90's, right wrist dressing c/d/i, 20g L AC sl, 3 runs of magnesium today.
[2025-05-04 19:58] LABS: POC Glucose,Bedside 221 (70-110)
[2025-05-05] VITALS: BP 148/59; PULSE 60; PULSE 61; RESP 17; TEMP 36.7; O2SAT 91
--- NOTE | 2025-05-05 00:20 | PC.NURSE ---
Patient weaned to room air, O2 sat 82%. Placed back on 1L NC.
[2025-05-05 00:48] LABS: POC Glucose,Bedside 89 (70-110)
--- NOTE | 2025-05-05 02:41 | PC.NURSE ---
Pt AOx4. Denies any pain or any additional needs at this time. Blood glucose was 221 around 2100. Pt refused insulin. Educated pt on importance of glucose control, but pt continued refusal. Contacted provider and rechecked glucose at 0000, glucose had decreased to 89. Pt resting in bed with eyes open, respirations even and unlabored. On 1L O2. Resting in low locked bed with call light in reach.
[2025-05-05 04:00] VITALS: BP 162/70; PULSE 64; PULSE 80; RESP 16; TEMP 36.4; O2SAT 94; BMI 35.8
[2025-05-05] MEDS: GLIPIZIDE 10 MG 1 EACH PO (06:31)
[2025-05-05 06:44] LABS: POC Glucose,Bedside 160 (70-110)
[2025-05-05 07:01] LABS: Basophils % 0.3 % (0.1-2.0); Eosinophils # 0.3 Kmm3 (0.0-0.4); Eosinophils % 3.8 % (0.1-12.0); Hematocrit 40.5 % (37.0-47.0); Hemoglobin 13.2 g/dL (12.2-16.2); Immature Granulocytes # 0.02 10^3uL; Immature Granulocytes % 0.3 %; Lymphocytes # 1.1 K/mm3 (0.7-4.5); Mean Corpuscular HGB Conc 32.6 g/dL (31.8-35.4); Mean Corpuscular Hemoglobin 29.2 pg (27.0-31.2); Mean Corpuscular Volume 89.6 fl (81-99); Mean Platelet Volume 9.2 fl (7.4-10.4); Monocytes # 0.5 K/mm3 (0.1-1.0); Monocytes % 6.8 % (1.7-9.3); Neutrophils # 5.6 K/mm3 (1.8-7.8); Neutrophils % 73.8 % (37.0-80.0); Nucleated Red Blood Cells # 0 10^3/uL; Nucleated Red Blood Cells % 0 %; Platelet Count 277 K/mm3 (142-424); Red Blood Count 4.52 M/mm3 (4.20-5.40); Red Cell Distribution Width 13.7 % (11.5-17.5); Red Cell Distribution Width-SD 45.5 fL; White Blood Count 7.6 K/mm3 (4.8-10.8)
[2025-05-05 08:00] VITALS: BP 189/57; PULSE 60; PULSE 68; RESP 16; TEMP 36.7; O2SAT 91
[2025-05-05] MEDS: SPIRONOLACTONE 25MG TABLET 25 MG PO (08:11)
[2025-05-05] MEDS: BUMETANIDE 1MG/4ML VIAL 1 MG IV (08:11)
[2025-05-05] MEDS: ENOXAPARIN 40MG/0.4ML SYRINGE 40 MG SUBCUT (08:11)
[2025-05-05] MEDS: ASPIRIN EC 81MG TABLET 81 MG PO (08:11)
[2025-05-05] MEDS: CLOPIDOGREL 75MG TAB 75 MG PO (08:11)
[2025-05-05 08:14] LABS: Albumin Level 3.7 g/dl (3.5-5.0)
[2025-05-05] MEDS: ATENOLOL 50 MG PO (08:14)
[2025-05-05] MEDS: FARXIGA 10 MG PO (08:14)
[2025-05-05] MEDS: LOSARTAN PO (08:15)
[2025-05-05] MEDS: HYDROCHLOROTHIAZIDE PO (08:15)
[2025-05-05 08:17] LABS: Alanine Aminotransferase 29 U/L (12-78); Alkaline Phosphatase 82 U/L (38-126); Aspartate Amino Transferase 37 U/L (14-36); Bilirubin,Direct 0.3 mg/dl (0.0-0.4); Bilirubin,Indirect 0.4 mg/dL (0.0-0.9); Bilirubin,Total 0.7 mg/dl (0.2-1.3); Bilirubin,Unconjugated 0.4 mg/dL (0.0-1.1); Blood Urea Nitrogen 17 mg/dl (7-17); Calcium 8.6 mg/dl (8.4-10.2); Carbon Dioxide 33 mmol/L (22.0-30.0); Cholesterol 176 mg/dl (140-200); Creatinine Clearance Estimated 58 mL/min (50-200); Estimated Glomerular Filt Rate 68 ml/min (>60); GFR (African American) 83 ML/MIN (>60); Glucose 153 mg/dl (74-100); Total Protein,Serum 6.2 g/dl (6.3-8.2); Triglycerides 118 mg/dl (30-150); VLDL Cholesterol 24 mg/dL (0-40)
[2025-05-05 08:18] LABS: Chol/HDL Ratio 2.8 (1-3.5); HDL Cholesterol 62 mg/dl (40-60)
[2025-05-05 08:28] LABS: Direct LDL Cholesterol 59.36 mg/dL (100-129)
[2025-05-05 09:25] LABS: Hemoglobin A1C 8.5 % (4.0-6.0)
[2025-05-05 10:30] VITALS: O2SAT 93
[2025-05-05 10:51] LABS: POC Glucose,Bedside 254 (70-110)
[2025-05-05 11:49] LABS: INR 1.07 (0.9-1.1); Prothrombin Time 11.8 seconds (10.1-12.5)
--- NOTE | 2025-05-05 11:50 | EXP.DC.SUM ---
General Admission date:: 05/03/25 HPI HPI HPI: Oly Jonse is a 84-year-old female with a medical history of former MT, type 2 diabetes, hypertension who presented as a transfer from [facility] for new onset heart failure. Unfortunately, at hospital does not have the ability to do ECHO on a daily basis. They reached out to Dr. Chiu who recommended transfer to our facility for further evaluation and management. On arrival, patient was sitting in bed comfortably without acute distress. She states she has been having progressive shortness of breath over the past few days and thus presented to the ER. On arrival, patient was noted to be hypoxic and placed on 2 L. CXR there showed pulmonary edema with BNP 550, mildly elevated high-sensitivity troponins that peaked at 30. Of note, patient was noted to have 70% left renal artery stenosis at that facility. I discussed case with the ER attending and decision was made to accept patient for new onset heart failure. CMP, CBC, BNP, troponin at this time are pending at her facility. Hospital Course Hospital Course Hospital Course: Oly Jones is a 84-year-old female with a medical history of former MT, type 2 diabetes, hypertension who presented as a transfer from [facility] for new onset heart failure. Unfortunately, at hospital does not have the ability to do ECHO on a daily basis. They reached out to Dr. Chiu who recommended transfer to our facility for further evaluation and management. On arrival, patient was sitting in bed comfortably without acute distress. She states she has been having progressive shortness of breath over the past few days and thus presented to the ER. On arrival, patient was noted to be hypoxic and placed on 2 L. CXR there showed pulmonary edema with BNP 550, mildly elevated high-sensitivity troponins that peaked at 30. Of note, patient was noted to have 70% left renal artery stenosis at that facility. I discussed case with the ER attending and decision was made to accept patient for new onset heart failure. #Acute hypoxic respiratory failure #Pulmonary edema # HFpEF exacerbation #Former MT #NSTEMI type I ? Transferred from [facility] after presenting with progressive shortness of breath, hypoxic with 2 L. ? Cardiology consulted, s/p LHC with 1 stent to the LAD. Patient tolerated procedure well. ? Clinically improved after LHC, and IV Lasix diuresis. Patient feels much better, weaned to room air. ? ECHO reveals LVEF 60%, with elevated RVSP. ? Initially was given IV Lasix 40 mg daily, spironolactone 25 mg. Transition to Bumex 1 mg IV twice daily post cath. Continue to monitor for diuresis and output. ? Follow-up ECHO, LVEF is 60%. A1c 8.5%, LDL 59. ? Started Plavix 75 mg, atorvastatin 40 mg, Bumex 1 mg, continue home aspirin 81 mg, atenolol 50 mg. ? Will follow-up with cardiology within 1 week. #Type 2 diabetes ? Hemoglobin A1c 8.5%. Continue home glipizide 10 mg, Farxiga 10 mg. Will need to follow-up with PCP for further management of diabetes. #Hypertension ? Switched losartan/hydrochlorothiazide combo to just losartan 100 mg as patient has been started on Bumex. Exam Data for Last 24 hours Vital signs and Labs for Last 24 Hours: Temp Pulse Resp BP Pulse Ox O2 Del Method O2 Flow Rate 98.1 F 68 16 189/57 H 93 L Room Air 0.5 05/05/25 08:00 05/05/25 08:00 05/05/25 08:00 05/05/25 08:00 05/05/25 10:30 05/05/25 11:00 05/05/25 05:00 Laboratory Results - last 24 hr 05/04/25 08:32: Urine RBC None, Urine WBC 3-5, Ur Squamous Epith Cells Occasional, Urine Bacteria Trace 05/04/25 12:36: Activated Clotting Time 341 H* 05/04/25 12:40: Lactate 0.6 L 05/04/25 15:55: POC Glucose 150 H 05/04/25 19:49: POC Glucose 221 H 05/05/25 00:41: POC Glucose 89 05/05/25 06:25: WBC 7.6 D, RBC 4.52, Hgb 13.2, Hct 40.5, MCV 89.6, MCH 29.2, MCHC 32.6, RDW 13.7, Plt Count 277, MPV 9.2, Neut % (Auto) 73.8, Lymph % (Auto) 15.0, [place] % (Auto) 6.8, Eos % (Auto) 3.8, Baso % (Auto) 0.3, Neut # (Auto) 5.6, Lymph # (Auto) 1.1, [place] # (Auto) 0.5, Eos # (Auto) 0.3, Baso # (Auto) 0.0, Carbon Dioxide 33 H, BUN 17 D, Creatinine 0.80, Estimated Creat Clear 58, Estimated GFR 68, Est GFR ( Amer) 83, Glucose 153 H, Hemoglobin A1c 8.5 H, Calcium 8.6, Total Bilirubin 0.7, Direct Bilirubin 0.3, Conjugated Bilirubin 0.0, Indirect Bilirubin 0.4, Unconjugated Bilirubin 0.4, AST 37 H, ALT 29, Alkaline Phosphatase 82, Total Protein 6.2 L, Albumin 3.7, Triglycerides 118, Cholesterol 176, LDL Cholesterol Direct 59.36 L, VLDL Cholesterol 24, HDL Cholesterol 62 H, Cholesterol/HDL Ratio 2.8 05/05/25 06:33: POC Glucose 160 H 05/05/25 10:38: POC Glucose 254 H I & O for Last 24 hours: Intake & Output 05/02/25 05/03/25 05/04/25 05/05/25 23:59 23:59 23:59 23:59 Intake Total 510 / 750 600 / 600 Output Total 150 / 150 500 / 1500 2200 / 2200 Balance -150 / -150 10 / -750 -1600 / -1600 Weight 87.09 kg 87.317 kg 88.224 kg Constitutional Constitutional: no acute distress and obese *Routine HEENT Exam Head: Present normocephalic Eye: Present EOMI and PERRL ENT: Present mucous membranes moist *Routine Neck Exam Neck: Present supple; Absent lymphadenopathy *Routine Respiratory Exam Respiratory: Present CTA bilaterally *Routine Cardiovascular Exam Cardiovascular: Present RRR *Routine Abdominal Exam Abdominal: Present soft and normoactive bowel sounds; Absent tenderness *Routine Extremities Exam Extremities: Absent cyanosis, clubbing or edema *Routine Skin Exam Skin: Present warm; Absent rash *Routine Neurological Exam Neurological: Present alert and oriented X3 Results Data Completed and Pending Labs on day of discharge: Labs from last 24 hours 05/05/25 05/05/25 05/05/25 10:38 06:33 06: WBC 7.6 D RBC 4.52 Hgb 13.2 Hct 40.5 MCV 89.6 MCH 29.2 MCHC 32.6 RDW 13.7 Plt Count 277 MPV 9.2 Neut % (Auto) 73.8 Lymph % (Auto) 15.0 [place] % (Auto) 6.8 Eos % (Auto) 3.8 Baso % (Auto) 0.3 Neut # (Auto) 5.6 Lymph # (Auto) 1.1 [place] # (Auto) 0.5 Eos # (Auto) 0.3 Baso # (Auto) 0.0 Activated Clotting Time Carbon Dioxide 33 H BUN 17 D Creatinine 0.80 Estimated Creat Clear 58 Estimated GFR 68 Est GFR ( Amer) 83 Glucose 153 H POC Glucose 254 H 160 H Hemoglobin A1c 8.5 H Lactate Calcium 8.6 Total Bilirubin 0.7 Direct Bilirubin 0.3 Conjugated Bilirubin 0.0 Indirect Bilirubin 0.4 Unconjugated Bilirubin 0.4 AST 37 H ALT 29 Alkaline Phosphatase 82 Total Protein 6.2 L Albumin 3.7 Triglycerides 118 Cholesterol 176 LDL Cholesterol Direct 59.36 L VLDL Cholesterol 24 HDL Cholesterol 62 H Cholesterol/HDL Ratio 2.8 Urine RBC Urine WBC Ur Squamous Epith Cells Urine Bacteria 05/05/25 05/04/25 05/04/25 00:41 19:49 15:55 WBC RBC Hgb Hct MCV MCH MCHC RDW Plt Count MPV Neut % (Auto) Lymph % (Auto) [place] % (Auto) Eos % (Auto) Baso % (Auto) Neut # (Auto) Lymph # (Auto) [place] # (Auto) Eos # (Auto) Baso # (Auto) Activated Clotting Time Carbon Dioxide BUN Creatinine Estimated Creat Clear Estimated GFR Est GFR ( Amer) Glucose POC Glucose 89 221 H 150 H Hemoglobin A1c Lactate Calcium Total Bilirubin Direct Bilirubin Conjugated Bilirubin Indirect Bilirubin Unconjugated Bilirubin AST ALT Alkaline Phosphatase Total Protein Albumin Triglycerides Cholesterol LDL Cholesterol Direct VLDL Cholesterol HDL Cholesterol Cholesterol/HDL Ratio Urine RBC Urine WBC Ur Squamous Epith Cells Urine Bacteria 05/04/25 05/04/25 05/04/25 12:40 12:36 08:32 WBC RBC Hgb Hct MCV MCH MCHC RDW Plt Count MPV Neut % (Auto) Lymph % (Auto) [place] % (Auto) Eos % (Auto) Baso % (Auto) Neut # (Auto) Lymph # (Auto) [place] # (Auto) Eos # (Auto) Baso # (Auto) Activated Clotting Time 341 H* Carbon Dioxide BUN Creatinine Estimated Creat Clear Estimated GFR Est GFR ( Amer) Glucose POC Glucose Hemoglobin A1c Lactate 0.6 L Calcium Total Bilirubin Direct Bilirubin Conjugated Bilirubin Indirect Bilirubin Unconjugated Bilirubin AST ALT Alkaline Phosphatase Total Protein Albumin Triglycerides Cholesterol LDL Cholesterol Direct VLDL Cholesterol HDL Cholesterol Cholesterol/HDL Ratio Urine RBC None Urine WBC 3-5 Ur Squamous Epith Cells Occasional Urine Bacteria Trace DS: Diagnosis Discharge Diagnosis (1) CHF exacerbation: Status: Acute Code(s): I50.9 - Heart failure, unspecified (2) Renal artery stenosis: Status: Acute Code(s): I70.1 - Atherosclerosis of renal artery (3) Diabetes mellitus: Status: Acute Code(s): E11.9 - Type 2 diabetes mellitus without complications Qualifiers: Diabetes mellitus complication status: without complication Diabetes mellitus halfway insulin use: without halfway use Diabetes mellitus type: type 2 Qualified Code(s): E11.9 - Type 2 diabetes mellitus without complications (4) HLD (hyperlipidemia): Status: Acute Code(s): E78.5 - Hyperlipidemia, unspecified Qualifiers: Hyperlipidemia type: mixed hyperlipidemia Qualified Code(s): E78.2 - Mixed hyperlipidemia (5) HTN (hypertension): Status: Acute Code(s): I10 - Essential (primary) hypertension Qualifiers: Hypertension type: primary hypertension Qualified Code(s): I10 - Essential (primary) hypertension (6) Epigastric pain: Status: Acute Code(s): R10.13 - Epigastric pain (7) Dyspnea: Status: Acute Code(s): R06.00 - Dyspnea, unspecified (8) Type 1 non-ST elevation myocardial infarction (NSTEMI): Status: Acute Code(s): I21.4 - Non-ST elevation (NSTEMI) myocardial infarction Meds Home Medications and Allergies Home Medications ?Medication ?Instructions ?Recorded ?Confirmed ?Type aspirin 81 mg capsule 81 mg PO DAILY 05/03/25 05/03/25 History atenolol 50 mg tablet 50 mg PO DAILY 05/03/25 05/04/25 History dapagliflozin propanediol 10 mg 10 mg PO DAILY 05/03/25 05/04/25 History tablet (Farxiga) glipizide 10 mg tablet 10 mg PO BID 05/03/25 05/04/25 History potassium 99 mg tablet 99 mg PO DAILY 05/03/25 05/03/25 History lidocaine 5 % topical patch 1 patch topical DAILY 05/04/25 05/04/25 History oxybutynin chloride 5 mg 5 mg PO HS 05/04/25 05/04/25 History tablet,extended release 24 hr trazodone 50 mg tablet 50 mg PO HS 05/04/25 05/04/25 History atorvastatin 40 mg tablet 40 mg PO HS 30 days #30 tabs 05/05/25 Rx bumetanide 1 mg tablet 1 mg PO DAILY 30 days #30 tabs 05/05/25 Rx clopidogrel 75 mg tablet 75 mg PO DAILY 30 days #30 tabs 05/05/25 Rx losartan 100 mg tablet 100 mg PO DAILY 30 days #30 tabs 05/05/25 Rx New Prescriptions to Start Prescriptions: atorvastatin Ninfa,Real bumetanide Ninfa,Real clopidogrel Ninfa,Real losartan Ninfa,Real Allergies Allergy/AdvReac Type Severity Reaction Status Date / Time No Known Allergies Allergy Verified 05/03/25 18:51 Discharge Plan Disposition Patient Disposition: Home, Self-Care Condition: Fair Discharge Order Discharge Orders: Discharge Order (Routine); Ordered 05/05/25 Ordered By: Real Ocasio Follow up Plan Follow up with: Constance June APRN [Nurse Practitioner, Cardiology] - 05/09/25 11:00 am Marco Cabezas APRN [Primary Care Provider, Medical] - 05/11/25 3:15 pm Prescriptions/Medication Reconciliation: New atorvastatin 40 mg Tablet 40 mg PO HS 30 Days Qty: 30 0RF clopidogrel 75 mg Tablet 75 mg PO DAILY 30 Days Qty: 30 0RF losartan 100 mg tablet 100 mg PO DAILY 30 Days Qty: 30 0RF bumetanide 1 mg tablet 1 mg PO DAILY 30 Days Qty: 30 0RF Continued glipizide 10 mg tablet 10 mg PO BID potassium 99 mg Tablet 99 mg PO DAILY atenolol 50 mg tablet 50 mg PO DAILY dapagliflozin propanediol [Farxiga] 10 mg Tablet 10 mg PO DAILY aspirin 81 mg Capsule 81 mg PO DAILY trazodone 50 mg tablet 50 mg PO HS lidocaine 5 % adhesive patch,medicated 1 patch topical DAILY oxybutynin chloride 5 mg tablet extended release 24hr 5 mg PO HS Discontinued losartan-hydrochlorothiazide 100-25 mg tablet 1 tab PO DAILY furosemide [Lasix] 20 mg Tablet 40 mg PO MOWEFR Rx Instructions: M/W/F Other Ambulatory Orders: Consult to Cardiac Rehabilitation (Routine) Facility: [facility] - Location: Cardiac Rehabilitation Ordered By: Sim Chiu Basic Metabolic Panel (Routine) Timeframe: 20250509 Facility: [facility] - Location: Laboratory Ordered By: Constance June Complete Blood Count Auto Diff (Routine) Timeframe: [id number] Facility: [facility] - Location: Laboratory Ordered By: Constance June Problem Reconciliation Problems Reviewed?: Yes Patient Discharge Instructions Patient Instructions: DI for Heart Failure, Stop Light Heart Failure Print Language: Ukrainian Providers Primary Care Provider: Marco Cabezas Admit Provider: Real Ocasio Attending Provider: Real Ocasio
[2025-05-05 11:56] LABS: Anion Gap 6.9 mEq/L (5-15); Chloride 97 mmol/L (98-107); Potassium 3.9 mmoL/L (3.5-5.1); Sodium 133 mmol/L (136-145)
--- NOTE | 2025-05-07 11:16 | SW/DCPLANNER ---
Spoke with patient on the phone. Patient stated that she is doing good. Patient stated that she was able to get her new medicine picked up. Patient stated that she is aware of her upcoming appointments. Patient stated that she has no concerns or questions at this time. Geovanni Brady
== END 2025-05-05 12:35 | disposition home or self-care (01) | DRG 321 ==
PROVIDERS: Internal Medicine; Nurse Practitioner Family; Admitting Provider Student in an Organized Health Care Education/Training Program; PCP Nurse Practitioner Family; Visit Provider Student in an Organized Health Care Education/Training Program
PROC: 4A023N7 Measurement of Cardiac Sampling and Pressure, Left Heart, Percutaneous Approach (ICD-10-PCS; CPT 93452; principal; 2025-05-04 13:00)
PROC: 027034Z Dilation of Coronary Artery, One Artery with Drug-eluting Intraluminal Device, Percutaneous Approach (ICD-10-PCS; 2025-05-04 13:00)
DX: I11.0 Hypertensive heart disease with heart failure (principal); I21.4 Non-ST elevation (NSTEMI) myocardial infarction; I50.31 Acute diastolic (congestive) heart failure; J96.01 Acute respiratory failure with hypoxia; E11.9 Type 2 diabetes mellitus without complications; E78.2 Mixed hyperlipidemia; I70.1 Atherosclerosis of renal artery; I25.2 Old myocardial infarction; Z79.82 Long term (current) use of aspirin; Z79.84 Long term (current) use of oral hypoglycemic drugs; Z79.899 Other long term (current) drug therapy
CPT/HCPCS: 36415; 71045; 80048; 80053; 80061; 80076; 81001; 82962; 83036; 83605; 83735; 83880; 84439; 84443; 84484; 85025; 85347; 85610; 93005; 93306; 99152; 99153; C1725; C1769; C1874; J1200; J1644; J1650; J1939; J2250; J3010; J3475; Q9967

== ENCOUNTER 2025-05-09 09:53 | Outpatient (CLI) | payer MEDICARE, SELFPAY ==
--- OUTSIDE RECORDS SUMMARY | 2025-05-09 09:56 | XMS_ITS | Continuity of Care Document ---
Author Organization [facility] Address [address] [place] [address] Care Team Providers Care Home Care Liaison Name Role Phone DANII MEHTA Primary Care Provider [facility] Ribbon Cleaner CLARIE SHEN Primary Care Provider Assessment No assessment recorded. Plan of Treatment Reminders Order Date Submit Date Provider Last Modified By Organization Details Last Modified Time Details Appointments OV EST 30 2024 03:15P M DANII MEHTA NP Not available Not available Not available OV EST 30 2024 08:00A M DANII MEHTA NP Not available Not available Not available Lab culture, urine 2024 025 [facility] (Laboratory), [address] [place] [address] [place], [address], 04/28/2025 06:31:08 microalbu min/creat inine, mass ratio, urine [address] [facility], [address] [place], [address], 04/27/2025 12:17:56 urinalysi s, dipstick 2024 025 [facility], [address] [place], [address], 04/27/2025 08:51:14 Referral None recorded. Procedures None recorded. Surgeries None recorded. Imaging DEXA 2024 025 [id number] [facility] (Scheduling), [address] [place], [address], 05/02/2025 09:52:54 US, echocardi ogram 2024 025 [id number] [facility] (Scheduling), [address] [place], [address], 05/04/2025 09:18:58 Medication Orders lidocaine 5 % topical patch 2024 025 [facility], [address], [place], [address], 04/30/2025 17:00:41 Patient TargetsNo targets recorded. Patient Instructions Encounter Date Encounter Id Patient Instructions Last Modified By Organization Details Last Modified Time 04/27/2025 [id number] advance directives: care instructions [email or web address] Not available 04/27/2025 07:55:03 well visit, over 65: care instructions [email or web address] Not available 04/27/2025 07:55:03 Health Maintenance Recommendations: (5-10 year screening/prevent ion plan) [email or web address] Not available 04/20/2025 12:00:43 Reason for Referral None Reported. Results Created Date Observation Date Name Description Value Unit Range Abnormal Flag Note LastModifiedBy Organization Detail LastModifiedTime 04/27/2004/27/2025 micro album in/cr eatin ine, mass ratio , urine Microalbumin 30 Not Available [facility]vin trinidad [address] [place], [address], 04/27/2025 08:52:14 04/27/20 25 04/27/2025 micro album in/cr eatin ine, mass ratio , urine Creatinine 50 Not Available [facility] [address] [place], [address], 04/27/2025 08:52:14 04/27/20 25 04/27/2025 micro album in/cr eatin ine, mass ratio , urine Ratio 30-300 Not Available [address] [place], [address], 04/27/2025 08:52:14 04/27/20 25 04/27/2025 urina lysis , dipst ick Leukocytes (reference range) trace Not Available [address] [place], [address], 04/27/2025 07:54:29 04/27/20 25 04/27/2025 urina lysis , dipst ick Nitrite (reference range:) negati ve Not Available [address] [place], [address], 04/27/2025 07:54:29 04/27/20 25 04/27/2025 urina lysis , dipst ick Urobilinogen (reference range) 0.2 Not Available [address] [place], [address], 04/27/2025 07:54:29 04/27/20 25 04/27/2025 urina lysis , dipst ick Protein (reference range) negati ve Not Available [address] [place], [address], 04/27/2025 07:54:29 04/27/20 25 04/27/2025 urina lysis , dipst ick pH (reference range 5-8.5) 7.0 Not Available [address] [place], [address], 04/27/2025 07:54:29 04/27/20 25 04/27/2025 urina lysis , dipst ick Blood (reference range:) negati ve Not Available [address] [place], [address], 04/27/2025 07:54:29 04/27/20 25 04/27/2025 urina lysis , dipst ick Specific Brooks (reference range) 1.015 Not Available [address] [place], [address], 04/27/2025 07:54:29 04/27/20 25 04/27/2025 urina lysis , dipst ick Ketone (reference range) negati ve Not Available [address] [place], [address], 04/27/2025 07:54:29 04/27/20 25 04/27/2025 urina lysis , dipst ick Bilirubin (reference range) negati ve Not Available [address] [place], [address], 04/27/2025 07:54:29 04/27/20 25 04/27/2025 urina lysis , dipst ick Glucose (reference range) negati ve Not Available [address] [place], [address], 04/27/2025 07:54:29 04/27/20 25 04/27/2025 urina lysis , dipst ick Color (reference range: yellow-brown ) Pale Yellow Not Available [address] [place], [address], 04/27/2025 07:54:29 Result Notes None recorded. Problems Name Problem SNOMED Code Status Onset Date Resolution Date Notes Provider Name and Address Organization Details Recorded Time Diabetes mellitus without complicat ion 267345498 Active 2014 DANII MEHTA NP [address], [place], [address], [place] - [place] & [place] 3 08:40:54 Generaliz ed osteoarth ritis 254826661 Active 2017 Barak pina null, [place] - [place] & [place] 4 16:02:30 Depressiv e disorder 19209122 Active 2015 Barak Hutchinso n null, [place] & [place] 4 16:02:34 Carotid artery obstructi on 32751315 Active 2017 Barak Hutchinso n null, [place] & [place] 4 16:02:26 Epigastri c pain 64806407 Active 2019 Barak Hutchinso n null, [place] & [place] 4 16:02:43 Body mass index 30+ - obesity 929807739 Active 2020 Barak Hutchinso n null[place] & [place] 4 16:02:24 Arthritis 9320259 Active 2020 Barak Hutchinso n null, [place] & [place] 4 16:02:22 Hyperlipi demia 80903167 Active 2017 Barak Hutchinso n null[place] & [place] 4 16:02:46 Non-rheum atic mitral regurgita tion 867379429 Active 2017 Barak Hutchinso n null[place] & [place] 4 16:02:54 Essential hypertens ion 74912029 Active 2018 Barak Hutchinso n null[place] & [place] 4 16:02:45 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 10693777 Active 2019 Barak Hutchinso n null, [place] & [place] 4 16:02:39 Insomnia 540879125 Active 2020 Insomnia Barak Hutchinso n null, [place] & [place] 4 16:02:50 Dependent edema 981648865 Active 2018 Barak Hutchinso n null, [place] & [place] 4 16:02:31 Acute lower urinary tract infection 302089044 Active 2019 Barak Hutchinso n null[place] 4 16:02:20 Chest pain 16343789 Active 2019 Barak Johnson n null, [place] & [place] 4 16:02:28 Osteoarth ritis of right knee joint 408557148953 100 Active 2022 Barak Streetkaliraleigh n null, [place] & [place] 4 16:02:56 Mixed hyperlipi demia 053091324 Active 2023 DANII MEHTA NP [address] [facility], [place], [address], [place] - [place] & [place] 4 08:07:06 Uncontrol led type 2 diabetes mellitus 960149886 Active 2023 DANII MEHTA NP [address] [facility], [place], [address], [place] [facility] & [place] 4 08:07:07 Problem Notes None recorded. Procedures Surgical History Date Name Laterality Status Provider Name and Address Organization Details Recorded Time 025 Medicare Annual Wellness Visit Health Risk Assessment completed Annasarah Greenmarcelino [place] - [place] - & [place] 04/27/2025 08:14:12 024 Medicare Annual Wellness Visit Health Risk Assessment completed Barak Brand [place] - [place] - & [place] 03/21/2024 10:59:28 023 Medicare Annual Wellness Visit Health Risk Assessment completed Ebony MARSHALL - [facility] - & [place] 02/05/2023 08:24:14 Cholecystectomy completed Ebony MARSHALL - [place] - [place] & [place] 08/11/2022 07:38:26 Tonsillectomy completed [facility] MAR[facility] & [place] 08/11/2022 07:38:36 Hysterectomy completed Ebony MARSHALL - [place] - [place] & [place] 08/11/2022 07:38:49 complete repair of rotator cuff completed Ebony Ferguson [facility] - [place] & [place] 08/11/2022 07:39:20 [facility]al L[facility] [place] 08/11/2022 07:39:29 Cataract Surgery completed Ebony Ferguson [facility] & [place] 08/11/2022 07:39:47 total knee replacement completed Ebony Ferguson [facility] & [place] 08/11/2022 07:40:34 Imaging Results None recorded. Procedure Notes None recorded. Medical Equipment None Reported. Allergies Allergen ID Allergen Name Allergen Category Reaction Reaction Severity Criticality Documentation Date Start Date Code Code System Note Provider Name and Address Organization Details Recorded Time 088968 morphine medicatio n Not available Not available Not available 01/15/2025 7052 RxNorm [place] Hutchinson [facility] & [place] 5 08:10:24 977845 Iodinated contrast media (substanc e) medicatio n facial swelling other Not available Not available Not available 01/15/2025 47887 2003 SNOMED Oral swell ing [place] Hutchinson [facility] & [place] 5 08:11:29 8627 codeine medicatio n dyspnea nausea vomiting severe severe severe Not available 07/27/2022 2670 RxNorm [place] Hutchinson [facility] & [place] 5 16:04:59 8632 erythromy eryn medicatio n Not available Not available Not available 07/27/2022 4053 RxNorm Other react ions and sever ities : 'Adve rse react ion to subst ance' . [place] Knapp [facility] & [place] 3 14:10:00 8637 oxycodone medicatio n Not available Not available Not available 07/27/2022 7804 RxNorm React ion: hallu cinat ions, sever ity: Unkno wn Not Available [facility] 2 01:57:01 8641 escitalop rufina Not available Not available Not available Not available 07/27/2022 17033 8 RxNorm React ion: night [place] , sever ity: Unkno wn Not Available [facility] 2 01:57:01 8646 sertralin e hydrochlo ride medicatio n Not available Not available Not available 07/27/2022 94437 7 RxNorm React ion: stoma ch upset , sever ity: Unkno wn Not Available [facility] 01:57:02 Medications Name Sig Start Date Stop [...] completed Not Available Not Available Not Available atorvastati n 40 mg tablet TAKE 1 TABLET BY MOUTH AT BEDTIME NIGHTLY FOR 30 DAYS active Not Available Not Available No t Available promethazin e-DM 6.25 mg-15 mg/5 mL [...] Available Not Available glipizide 10 mg tablet TAKE 1 TABLET TWICE DAILY 2024 active Not Available Not Available Not Avai lable Milk of Magnesia 400 mg/5 mL oral [...] completed Not Available Not Available Not Available clopidogrel 75 mg tablet TAKE 1 TABLET BY MOUTH ONCE DAILY FOR 30 DAYS active Not Available Not Available No t Available Aspir-Low 81 mg tablet,cynthia yed release Take 81 mg by oral route. 01/30 completed Not Available Not Available Not Available amoxicillin 500 mg tablet TAKE 1 TABLET BY MOUTH TWICE DAILY FOR 10 DAYS 08/11 completed Not Available Not Available Not Available potassium chloride 20 mEq/L in dextrose 5 [...] Not Available Not Available No t Available bumetanide 1 mg tablet TAKE 1 TABLET BY MOUTH ONCE DAILY FOR 30 DAYS active Not Available Not Available No t [...] Available Not Available Not Available losartan 100 mg tablet TAKE 1 TABLET BY MOUTH ONCE DAILY FOR 30 DAYS active Not Available Not Available No t Available atenolol 50 mg tablet TAKE 1 [...] completed Not Available Not Available Not Available nitrofurant oin monohydrate /macrocryst als 100 mg capsule TAKE 1 CAPSULE BY MOUTH EVERY 12 HOURS FOR 5 DAYS active Not Available Not Available No t Available sodium chloride 0.9 % intravenous piggyback [...] 148 mm[Hg] 68 mm[Hg] DANII MEHTA NP [address] [place] [address], [address], [place] - [facility] & [place] 04/30/2025 16:55:20 Date Recorded Body height Body mass index (BMI) Body weight Body temperature Oxygen saturation Oxygen saturation in Arterial blood by Pulse oximetry Heart rate Respiratory rate Systolic blood pressure Diastolic blood pressure Provider Name and Address Organization Details Last Updated DateTime 157.48 cm 35.2 kg/m2 50417.4 5 g 97.2 [degF] 98 % 98 % 55 /min 14 /min 160 mm[Hg] 79 mm[Hg] Anna Ramirez [facility] & [place] 08:08:03 Social History Question Answer Notes LastModified by Organizat ion Details LastModified Time Tobacco Smoking Status Never Smoker Not Available [facility] 02/05/2023 08:38:34 Do You Have An Advance Directive? Yes Information n ot available 04/27/2025 Do You Wear A Helmet When Biking? Yes [email or web address] Information not available 08/08/2024 Are You Blind Or Do You Have Difficulty Seeing? No [email or web address] Information n ot available 08/08/2024 What Is Your Level Of Caffeine Consumption? Moderate CHART_MERGE Information not available 02/05/2023 In The 14 Days Before Symptom Onset, Have You Had Close Contact With A Laboratory-confirm ed COVID-19 While That Case Was Ill? No [email or web address] Information n ot available 08/08/2024 In The 14 Days Before Symptom Onset, Have You Had Close Contact With A Person Who Is Under Investigation For COVID-19 While That Person Was Ill? No [email or web address] Information not available 08/08/2024 Have You Been To An Area Known To Be High Risk For COVID-19? No [email or web address] Information not available 08/08/2024 Are You Deaf Or Do You Have Serious Difficulty Hearing? No [email or web address] Information not available 08/08/2024 What Type Of Diet Are You Following? REGULAR Information n ot available 08/08/2024 Have You Processed Blood Or Body Fluids From An Ebola Virus Disease Patient Without Appropriate PPE? No [email or web address] Information not available 08/08/2024 Do You Reside In Or Have You Traveled To An Area Where Ebola Virus Transmission Is Active? No [email or web address] Information not available 08/08/2024 Have There Been Any Changes To Your Family Or Social Situation? No [email or web address] Information no t available 08/08/2024 What Is The Fluoride Status Of Your Home? Unknown [email or web address] Information not available 08/08/2024 Are There Any Guns Present In Your Home? No Information not available 08/08/2024 Have You Recently Or Are You Planning To Travel To An Area With Zika Virus? No [email or web address] Information not available 08/08/2024 Do You Use Insect Repellent Routinely? Yes [email or web address] Information not available 08/08/2024 In General, Would You Say Your Health Is Good [email or web address] Information not available 08/08/2024 How Would You Describe The Condition Of Your Mouth And Teeth including False Teeth Or Dentures? Good [email or web address] Information n ot available 08/08/2024 In The Past 7 Days, How Many Servings Of Fruits And Vegetables Did You Typically Eat Each Day? (1 Serving = 1 Cup Of Fresh Vegetables, 1 2 Cup Of Cooked Vegetables, Or 1 Medium Piece Of Fruit. 1 Cup = Size Of A Baseball.) 3-4 Servings Per Day [email or web address] Information not available 08/08/2024 In The Past 7 Days, How Many Servings Of High Fiber Or Whole Grain Foods Did You Typically Eat Each Day? (1 Serving = 1 Slice Of 100% Whole Wheat Bread, 1 Cup Of Whole-grain Or High-fiber Antyq-mz-gsl Cereal, 1 2 Cup Of Cooked Cereal Such As Oatmeal, Or 1 2 Cup Of Cooked Brown Rice Or Whole Wheat Pasta.) 3-4 Servings Per Day [email or web address] Information not available 08/08/2024 In The Past 7 Days, How Many Servings Of Fried Or High-fat Foods Did You Typically Eat Each Day? (Examples Include Fried Chicken, Fried Fish, Tucker, [place], Potato Chips, Tarpley Chips, Doughnuts, Creamy Salad Dressings, And Foods Made With Whole Milk, Cream, Cheese, Or Mayonnaise.) 1-2 Servings Per Day [email or web address] Information not available 08/08/2024 In The Past 7 Days, How Many Sugar-sweetened (not Diet) Beverages Did You Typically Consume Each Day 1-2 Drinks Per Day [email or web address] Information not available 08/08/2024 Each Night, How Many Hours Of Sleep Do You Usually Get? 6-7 Hours Information not available 08/08/2024 Do You Snore Or Has Anyone Told You That You Snore? No [email or web address] Information not available 08/08/2024 In The Past 7 Days, How Often Have You [place] Sleepy During The Daytime? Sometimes [email or web address] Information not available 08/08/2024 Do You Have Chronic Pain? Yes [email or web address] Information not available 08/08/2024 In The Past 7 Days, How Would You Rate Your Pain? Moderate Pain(4-6) Information not available 08/08/2024 Are You In A Pain Management Program? No [email or web address] Information not available 08/08/2024 Do You Take Opioids For Your Pain? No [email or web address] Information not available 08/08/2024 How Often Is Stress A Problem For You In Handling Such Things As: Your Health, Your Finances, Your Family And Social Relationships, Your Work? Never Or Rarely [email or web address] Information not available 08/08/2024 How Often Do You Get The Social And Emotional Support You Need: Always [email or web address] Information not available 08/08/2024 In The Past 7 Days, Did You Need Help From Others To Take Care Of Things Such As Laundry And Housekeep- Ing, Banking, Shopping, Using The Telephone, Food Preparation, Transportation, Or Taking Your Own Medications? No [email or web address] Information not available 08/08/2024 Do You Live Alone? No [email or web address] Inform ation not available 08/08/2024 Does Your Home Have Any Fall Risks (un-level Floors, Unfastened Rugs, Poor Lighting, Etc)? No Information not available 08/08/2024 Do You Feel Safe At Home? Yes [email or web address] Information not available 08/08/2024 Do You Have A Medical Power Of Fixture Builder? Yes Information not available 04/27/2025 What Was The Date Of Your Most Recent Tobacco Screening? 01/26/2025 [email or web address] Information not available 01/26/2025 Do You Have Any Pets? No [email or web address] Information not available 08/08/2024 What Is Your Relationship Status? Information not available 04/27/2025 Do You Use Your Seat Belt Or Car Seat Routinely? Yes [email or web address] Information not available 08/08/2024 Are You Sexually Active? No Information not available 04/27/2025 Do You Have Smoke And Carbon Monoxide Detectors In Your Home? Yes [email or web address] Information not available 08/08/2024 Are You Passively Exposed To Smoke? No [email or web address] Information no t available 08/08/2024 Do You Use Sunscreen Routinely? Yes Information not available 08/08/2024 Has Tobacco Cessation Counseling Been Provided? No CHART_MERGE Information not available 02/05/2023 Do You Have Difficulty Walking Or Climbing Stairs? No [email or web address] Information not available 08/08/2024 Are You Currently In School? No [email or web address] Information not available 08/08/2024 Sex: Unknown Functional [...] available 02/05/2023 Are you currently employed? No [email or web address] Information not available 08/08/2024 Do you have transportation difficulties? No [email or web address] Information not available 08/08/2024 Are you able to walk? YESWOREST Information not available 08/08/2024 Do you have difficulty doing errands alone? No [email or web address] Information not available 08/08/2024 Are you able to care for yourself? Yes Information not available 08/08/2024 Do you have difficulty dressing or bathing? No [email or web address] Information not available 08/08/2024 What is your exercise level? None [email or web address] Information not available 08/08/2024 Mental Status Question Answer Note LastModified by Organizat ion Details LastModified Time Do you feel stressed (tense, restless, nervous, or anxious, or unable to sleep at night)? [id number] Information not available 08/08/2024 Do you have difficulty concentrating, remembering or making decisions? No [email or web address] Information no t available 08/08/2024 Family History [...] available 02/05/2023 08:38:33 Medical History Condition Response Depression Y High Cholesterol Y Diabetes Y Hypertension Y Gynecological HistoryNo gynecological history recorded. Obstetrics History GPAL:G 0 P 0 0 0 0 Immunizations Vaccine Type Date Status Note Provider Nam e and Address Organization Details Recorded Time Influenza, high-dose, quadrivalent, PF 2 completed DANII MEHTA NP [address] [place] [address], [address], [facility] & [place] 08/12/2022 18:44:27 COVID-19, mRNA, LNP-S, PF, 30 mcg/0.3 mL dose 1 completed Not Available [facility] 06/21/2023 11:42:37 COVID-19, mRNA, LNP-S, PF, 30 mcg/0.3 mL dose 1 completed Not Available [facility] 06/21/2023 11:42:37 Influenza, adjuvanted, quadrivalent, PF 1 completed Not Available [facility] 06/21/2023 11:42:37 Pneumococcal conjugate PCV20, polysaccharide EXT909 conjugate, adjuvant, PF 2 completed Not Available [facility] 06/21/2023 11:42:37 COVID-19, mRNA, LNP-S, PF, 30 mcg/0.3 mL dose, lam-sucrose 2 completed Not Available [facility] 06/21/2023 11:42:37 Tdap 3 completed DANII MEHTA NP [address] [place], [address], [facility] & [place] 08/02/2023 16:19:22 Influenza, high-dose, quadrivalent, PF 3 completed DANII MEHTA NP [address] [place], [address], [facility] & [place] 08/02/2023 16:19:22 COVID-19, mRNA, LNP-S, bivalent, PF, 30 mcg/0.3 mL dose 2 completed Not Available [facility] 06/21/2023 11:42:37 Influenza, split virus, trivalent, PF 7 completed Not Available [facility] 06/21/2023 11:42:37 COVID-19, mRNA, LNP-S, PF, 30 mcg/0.3 mL dose 1 completed Not Available [facility] 06/21/2023 11:42:37 Influenza, split virus, trivalent, PF 5 completed Not Available [facility] 06/21/2023 11:42:37 pneumococcal polysaccharide PPV23 6 completed Not Available [facility] 06/21/2023 11:42:37 Influenza, adjuvanted, quadrivalent, PF 0 completed Not Available [facility] 06/21/2023 11:42:37 Pneumococcal conjugate PCV 13 5 completed Not Available [facility] 06/21/2023 11:42:37 RSV, recombinant, protein subunit RSVpreF, adjuvant reconstituted, 0.5 mL, PF 3 completed Barak Brand null, [place] & [place] 02/01/2024 07:57:45 COVID-19, mRNA, LNP-S, PF, lam-sucrose, 30 mcg/0.3 mL 3 completed Barak Brand null, [place] & [place] 02/01/2024 07:57:45 Influenza, high-dose, trivalent, PF 4 completed Barak Brand null, [place] & [place] 08/21/2024 10:57:57 zoster recombinant 4 completed Barak Brand null[place] & [place] 08/21/2024 10:58:08 zoster recombinant 5 completed DANII MEHTA NP [address] [place] [address] [place], [address], [place] 11/19/2024 11:15:16 COVID-19, mRNA, LNP-S, PF, 50 mcg/0.5 mL 5 completed Anna Ramirez null, [place] & [place] 04/27/2025 08:08:31 Past Encounters Encounter ID Performer Location Encounter Start Date Encounter Closed Date Diagnosis/Indication Diagnosis SNOMED-CT Code Diagnosis ICD10 Code Diagnosis Note [id number] DANII MEHTA NP [address] [place] [address] 04/27/2025 07:47:15 05/01/2025 08:18:11 Adult health examination 966362585 Z00.00 Patient presented to office today for [...] living. Uncontroll ed type 2 diabetes mellitus 052543503 E11.65 take medication s as prescribed awaiting duxg3jugxi forced diet and lifestyle changesdai ly foot checkyearl y eye examfollow up every 3 months Mixed hyperlipidemia 267 043834 E78.2 declines statin therapy, continue with lifestyle changes Essential hypertension 91589955 I10 educated on goal of less than 130/90advi sed low sodium diet, healthy lifestyle including exercise as ablecontin ue current medication regimenER if any symptoms such as chest pain, shortness of breath Dysuria 36689392 R30.0 Office UA suggesting UTI, urine sent [...] emergency room immediatel y Low back pain 946108827 M54.50 discussed heat, , follow-up if symptoms persist will recommend imaging and physical therapy Heart murmur 37101567 R0 1.1 asymptomat icget baseline echo; declines cardiology at this time Screening for osteoporosis 022979942 Z13.820 Fatigue 71696165 R53.83 we will plan to get lab work at next visit Educated on sleep hygiene, screen time, diet, exercise Follow-up if symptoms persist or worsen discussed anxiety and considerin g Cymbalta due to her chronic pain this may be a good fit for her chronic pain and anxiety Contusion of left foot [id number] 5217700 S90.32XA reports comes and goes, will document next time for better informatio n of how long this lasted, not present today Health Concerns Section Related Observation LastModified by Organization Esther rubio LastModified Time None Recorded Concern Status LastModified by Organization Details LastModified Time None Recorded Payers Encounter Date Sequence Insurance Name Policy Number Policy Mendoza Covered Member ID Mendoza Member ID Guarantor Name 04/27/2025 1 [id number] (MEDICARE REPLACEMENT/A DVANTAGE - PPO) Oly Jones [id number] Notes Date Note Type Note Provider Name [...] went, not present today DANII MEHTA, KEMI [address] [facility], [place], [address], [facility] - [place] [facility] [place] 04/30/2025 17:03:08 OBGyn Episode No OBEpisode recorded.
--- OUTSIDE RECORDS SUMMARY | 2025-05-09 09:57 | XMS_ITS | Data Portability ---
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 Name Role Phone DANII SOUSA Primary Care Provider [facility] [employer] Stitcher [phone] CLAIRE SHEN Primary Care Provider Assessment Encounter [...] Details Appointments OV EST 30 2024 03:15P Vane SOUSA NP Not available Not available Not available OV EST 30 2024 08:00A Vane SOUSA NP Not available Not available Not available Lab culture, urine 2024 025 [facility] (Laboratory), [address] [place], [address], 04/28/2025 06:31:08 microalbu min/creat inine, mass ratio, urine 2024 025 [facility], [address] [place], [address], 04/27/2025 12:17:56 urinalysi s, dipstick [address] [facility], [address] [place], [address], 04/27/2025 08:51:14 lipid panel, serum 2024 025 [facility] (Laboratory), [address] [place], [address], 02/19/2025 14:14:34 microalbu min/creat inine, ratio, urine [address] (Laboratory), [address] [place], [address], 02/26/2025 08:19:54 hemoglobi n A1c + average glucose, QN, blood [address] (Laboratory), [address] [place], [address], 02/26/2025 08:19:54 CMP, serum or plasma 2024 025 [facility] (Laboratory), [address] [place], [address], 02/19/2025 14:14:32 culture, urine [address] (Laboratory), [address] [place], [address], 02/26/2025 08:19:55 culture, urine 2024 025 [facility] (Laboratory), [address] [place], [address], 02/15/2025 06:23:43 urinalysi s, dipstick 2024 [facility]25 [facility] [address] [place], [address], 02/14/2025 11:34:05 hemoglobi n A1c + average glucose, QN, blood 2024 [facility] (Laboratory), [address] [place], [address], 11/24/2024 08:59:23 vitamin B12 + folate, serum or blood [address] [place] [address] (Laboratory), [address] [place], [address], 11/24/2024 08:59:22 iron + TIBC + ferritin, serum [address] [place] [address] (Laboratory), [address] [place], [address], 11/24/2024 08:59:23 TSH, serum or plasma [address] [place] [address] (Laboratory), [address] [place], [address], 11/17/2024 18:12:25 CBC w/ auto diff [address] [place] [address] (Laboratory), [address] [place], [address], 11/17/2024 16:57:01 vitamin D, 25-hydrox y, total, serum [address] [place] [address] (Laboratory), [address] [place], [address], 11/24/2024 08:59:23 CMP, serum or plasma [address] [place] [address] (Laboratory), [address] [place], [address], 11/17/2024 18:13:28 magnesium , serum or plasma [address] [place] [address] (Laboratory), [address] [place], [address], 11/17/2024 18:13:30 Referral None recorded. Procedures None recorded. Surgeries None recorded. Imaging DEXA [address] (Scheduling), [address] [place], [address], 05/02/2025 09:52:54 US, echocardi ogram [address] (Scheduling), [address] [place], [address], 05/04/2025 09:18:58 Medication Orders lidocaine 5 % topical patch 2024 [facility], [address] , [place], [address], 04/30/2025 17:00:41 Macrobid 100 mg capsule 2024 [facility] #[id number], [address] [place], [id number], 04/27/2025 08:09:20 valacyclo vir 1 gram tablet 2024 025 [facility] #[id number], [address] [place], [id number], 02/14/2025 11:09:10 erythromy eryn 5 mg/gram (0.5 %) eye ointment 2024 025 [facility] #[id number], [address] [place], [id number], 02/14/2025 11:09:11 oxybutyni n chloride ER 5 mg tablet,ex tended release 24 hr 2024 [facility], [address] [facility], [place], [address], 11/17/2024 15:03:35 Patient TargetsNo targets recorded. Patient Instructions Encounter Date Encounter Id Patient Instructions Last Modified By Organization Details Last Modified Time 04/27/2025 [id number] advance directives: care instructions manfred Not available 04/27/2025 07:55:03 well visit, over 65: care instructions manfred Not available 04/27/2025 07:55:03 Health Maintenance Recommendations: (5-10 year screening/prevent ion plan) Not available 04/20/2025 12:00:43 Reason for Referral None Reported. Results Created Date Observation Date Name Description Value Unit Range Abnormal Flag Note LastModifiedBy Organization Detail LastModifiedTime 11/17/1911/17/2024 CBC AUTO W DIFF WBC 7.9 10 4.5-11 .5 Not Available [facility] (Lab Registration) [address] [place], [address], 11/17/2024 16:57:01 11/17/19 25 11/17/2024 CBC AUTO W DIFF RBC 4.92 10 4.25-5 .57 Not Available [facility] (Lab Registration) [address] [place], [address], 11/17/2024 16:57:01 11/17/19 25 11/17/2024 CBC AUTO W DIFF HGB 14.7 g/dL 12.0-1 5.7 Not Available [facility] (Lab Registration) [address] [place], [address], 11/17/2024 16:57:01 11/17/19 25 11/17/2024 CBC AUTO W DIFF HCT 43.2 % 36.0-4 7.0 Not Available [facility] (Lab Registration) [address] [place], [address], 11/17/2024 16:57:01 11/17/19 25 11/17/2024 CBC AUTO W DIFF MCV 87.8 fL 80-95 Not Available [facility] (Lab Registration) [address] [place], [address], 11/17/2024 16:57:01 11/17/19 25 11/17/2024 CBC AUTO W DIFF MCH 29.9 pg 27.0-3 4.0 Not Available [facility] (Lab Registration) [address] [place], [address], 11/17/2024 16:57:01 11/17/19 25 11/17/2024 CBC AUTO W DIFF MCHC 34.0 g/dL 32.0-3 6.0 Not Available [facility] (Lab Registration) [address] [place], [address], 11/17/2024 16:57:01 11/17/19 25 11/17/2024 CBC AUTO W DIFF platelet count 279 10 150-45 0 Not Available [facility] (Lab Registration) [address] [place], [address], 11/17/2024 16:57:01 11/17/19 25 11/17/2024 CBC AUTO W DIFF RDW 13.2 % 12.3-1 5.1 Not Available [facility] (Lab Registration) [address] [place], [address], 11/17/2024 16:57:01 11/17/19 25 11/17/2024 CBC AUTO W DIFF MPV 10.0 fL 7.4-10 .4 Not Available [facility] (Lab Registration) [address] [place], [address], 11/17/2024 16:57:01 11/17/19 25 11/17/2024 CBC AUTO W DIFF granulocyte% 65.5 % 40-75 Not Available [facility] (Lab Registration) [address] [place], [address], 11/17/2024 16:57:01 11/17/19 25 11/17/2024 CBC AUTO W DIFF lymphocyte% 25.4 % 15-57 Not Available [facility] (Lab Registration) [address] [place], [address], 11/17/2024 16:57:01 11/17/19 25 11/17/2024 CBC AUTO W DIFF monocyte% 7.1 % 4.0-12 .0 Not Available [facility] (Lab Registration) [address] [place], [address], 11/17/2024 16:57:01 11/17/19 25 11/17/2024 CBC AUTO W DIFF eosinophil% 1.5 % 0.0-4. 0 Not Available [facility] (Lab Registration) [address] [place], [address], 11/17/2024 16:57:01 11/17/19 25 11/17/2024 CBC AUTO W DIFF basophil% 0.4 % 0.0-1. 0 Not Available [facility] (Lab Registration) [address] [place], [address], 11/17/2024 16:57:01 11/17/19 25 11/17/2024 CBC AUTO W DIFF immature granulocytes % 0.1 % 0.0-0. 8 Not Available [facility] (Lab Registration) [address] [place], [address], 11/17/2024 16:57:01 11/17/19 25 11/17/2024 CBC AUTO W DIFF granulocyte# 5.17 10 Not Available [facility] (Lab Registration) [address] [place], [address], 11/17/2024 16:57:01 11/17/19 25 11/17/2024 CBC AUTO W DIFF lymphocyte# 2.01 10 Not Available [facility] (Lab Registration) [address] [place], [address], 11/17/2024 16:57:01 11/17/19 25 11/17/2024 CBC AUTO W DIFF monocyte# 0.56 10 Not Available [facility] (Lab Registration) [address] [place], [address], 11/17/2024 16:57:01 11/17/19 25 11/17/2024 CBC AUTO W DIFF eosinophil# 0.12 10 Not Available [facility] (Lab Registration) [address] [place], [address], 11/17/2024 16:57:01 11/17/19 25 11/17/2024 CBC AUTO W DIFF basophil# 0.03 10 Not Available [facility] (Lab Registration) [address] [place], [address], 11/17/2024 16:57:01 11/17/19 25 11/17/2024 CBC AUTO W DIFF immature granulocytes # 0.01 10 Not Available [facility] (Lab Registration) [address] [place], [address], 11/17/2024 16:57:01 11/17/19 25 11/17/2024 CBC AUTO W DIFF manual differential NO Not Available [facility] (Lab Registration) [address] [place], [address], 11/17/2024 16:57:01 11/17/19 25 11/17/2024 CBC AUTO W DIFF note Unles s other butts noted testi ng perfo rmed at: [facility] [address] [place] [address] [phone] Corbin carrington MD CLIA: [id number] Not Available [facility] (Lab Registration) [address] [place], [address], 11/17/2024 16:57:01 11/17/19 25 11/17/2024 HEMOG LOBIN A1C glycosylated hemoglobin A1C 6.9 % 4.5-6. 2 high Not Available [facility] (Lab Registration) [address] [place], [address], 11/17/2024 17:06:53 11/17/19 25 11/17/2024 HEMOG LOBIN A1C estimated average glucose 151 mg/dL 82-131 high Not Available [facility] (Lab Registration) [address], [place], [address], 11/17/2024 17:06:53 11/17/19 25 11/17/2024 HEMOG LOBIN A1C note Unles s other butts noted testi ng perfo rmed at: [facility] [address] [place] [phone] Corbin carrington MD CLIA: [id number] Not Available [facility] (Lab Registration) [address], [place], [address], 11/17/2024 17:06:53 11/17/19 25 11/17/2024 IRON/ TIBC/ %SAT (IRON STUDI ES) iron 82 ug/dL 35-150 Not Available [facility] (Lab Registration) [address], [place], [address], 11/17/2024 17:07:58 11/17/19 25 11/17/2024 IRON/ TIBC/ %SAT (IRON STUDI ES) total iron bind cap (TIBC) 298 ug/dL 250-45 0 Not Available [facility] (Lab Registration) [address], [place], [address], 11/17/2024 17:07:58 11/17/19 25 11/17/2024 IRON/ TIBC/ %SAT (IRON STUDI ES) % saturation 28 % 15-55 Not Available [facility] (Lab Registration) [address] [place], [address], 11/17/2024 17:07:58 11/17/19 25 11/17/2024 IRON/ TIBC/ %SAT (IRON STUDI ES) note Unles s other butts noted testi ng perfo rmed at: [facility] [address] [address] [place] [address] [phone] Corbin carrington MD CLIA: [id number] Not Available [facility] (Lab Registration) [address] [place], [address], 11/17/2024 17:07:58 11/17/19 25 11/17/2024 VITAM IN B12 vitamin B12 940 pg/mL 193-98 6 Not Available [facility] (Lab Registration) [address] [place], [address], 11/17/2024 18:12:22 11/17/19 25 11/17/2024 VITAM IN B12 folate (folic acid), serum 64.1 NG/mL 8.6-58 .9 high Not Available [facility] (Lab Registration) [address] [place], [address], 11/17/2024 18:12:22 11/17/19 25 11/17/2024 VITAM IN B12 note Unles s other butts noted testi ng perfo rmed at: [facility] [address] [place] [address] [phone] Corbin carrington MD CLIA: [id number] Not Available [facility] (Lab Registration) [address] [place], [address], 11/17/2024 18:12:22 11/17/19 25 11/17/2024 JOSEF TIN ferritin 201 NG/mL 8-388 Not Available [facility] (Lab Registration) [address] [place], [address], 11/17/2024 18:12:24 11/17/19 25 11/17/2024 JOSEF TIN note Unles s other butts noted testi ng perfo rmed at: [facility] [address] [address] [place] [address] [phone] Corbin carrington MD CLIA: [id number] Not Available [facility] (Lab Registration) [address] [place], [address], 11/17/2024 18:12:24 11/17/19 25 11/17/2024 THYRO ID STIMU LATIN G HORMO NE thyroid stimulating hormone 0.54 mIU/m L 0.34-4 .80 Not Available [facility] (Lab Registration) [address] [place], [address], 11/17/2024 18:12:25 11/17/19 25 11/17/2024 THYRO ID STIMU LATIN G HORMO NE note Unles s other butts noted testi ng perfo rmed at: [facility] [address] [address] [place] [address] [phone] Corbin carrington MD CLIA: [id number] Not Available [facility] (Lab Registration) [address] [place], [address], 11/17/2024 18:12:25 11/17/19 25 11/17/2024 VITAM IN D TOTAL (D2+D 3) vitamin D25 (D2+D3) 38.4 NG/mL 30-100 Not Available [facility] (Lab Registration) [address] [place], [address], 11/17/2024 18:13:27 11/17/19 25 11/17/2024 VITAM IN D TOTAL (D2+D 3) note Jacobo carrington other butts noted testi ng perfo rmed at: [facility] [address] [place] [address] [phone] Corbin carrington MD CLIA: [id number] Not Available [facility] (Lab Registration) [address] [place], [address], 11/17/2024 18:13:27 11/17/19 25 11/17/2024 COMP METAB OLIC PANEL sodium 140 mmol/ L 136-14 5 Not Available [facility] (Lab Registration) [address] [place], [address], 11/17/2024 18:13:28 11/17/19 25 11/17/2024 COMP METAB OLIC PANEL potassium 3.5 mmol/ L 3.5-5. 1 Not Available [facility] (Lab Registration) [address] [place], [address], 11/17/2024 18:13:28 11/17/19 25 11/17/2024 COMP METAB OLIC PANEL chloride 96 mmol/ L 98-107 low Not Available [facility] (Lab Registration) [address] [place], [address], 11/17/2024 18:13:28 11/17/19 25 11/17/2024 COMP METAB OLIC PANEL carbon dioxide 34 mmol/ L 21-32 high Not Available [facility] (Lab Registration) [address] [place], [address], 11/17/2024 18:13:28 11/17/19 25 11/17/2024 COMP METAB OLIC PANEL anion gap 10.0 Not Available [facility] (Lab Registration) [address] [place], [address], 11/17/2024 18:13:28 11/17/19 25 11/17/2024 COMP METAB OLIC PANEL glucose 107 mg/dL 70-110 Not Available [facility] (Lab Registration) [address] [place], [address], 11/17/2024 18:13:28 11/17/19 25 11/17/2024 COMP METAB OLIC PANEL blood urea nitrogen 15 mg/dL 7-18 Not Available [facility] (Lab Registration) [address] [place], [address], 11/17/2024 18:13:28 11/17/19 25 11/17/2024 COMP METAB OLIC PANEL creatinine 0.9 mg/dL 0.6-1. 0 Not Available [facility] (Lab Registration) [address] [place], [address], 11/17/2024 18:13:28 11/17/19 25 11/17/2024 COMP METAB OLIC PANEL BUN/creatini ne ratio 16.7 9-21 Not Available [facility] (Lab Registration) [address], [place], [address], 11/17/2024 18:13:28 11/17/19 25 11/17/2024 COMP METAB [...] palmer ing kiney funct ion. Not Available [facility] (Lab Registration) [address], [place], [address], 11/17/2024 18:13:28 11/17/19 25 11/17/2024 COMP METAB OLIC PANEL total protein 6.9 g/dL 6.4-8. 2 Not Available [facility] (Lab Registration) [address], [place], [address], 11/17/2024 18:13:28 11/17/19 25 11/17/2024 COMP METAB OLIC PANEL albumin 3.7 g/dL 3.4-5. 0 Not Available [facility] (Lab Registration) [address] [place], [address], 11/17/2024 18:13:28 11/17/19 25 11/17/2024 COMP METAB OLIC PANEL calcium 9.8 mg/dL 8.5-10 .1 Not Available [facility] (Lab Registration) [address] [place], [address], 11/17/2024 18:13:28 11/17/19 25 11/17/2024 COMP METAB OLIC PANEL corrected calcium 10.0 mg/dL 8.5-10 .1 Not Available [facility] (Lab Registration) [address], [place], [address], 11/17/2024 18:13:28 11/17/19 25 11/17/2024 COMP METAB OLIC PANEL bilirubin total 0.7 mg/dL 0.4-1. 5 Not Available [facility] (Lab Registration) [address] [place], [address], 11/17/2024 18:13:28 11/17/19 25 11/17/2024 COMP METAB OLIC PANEL AST (SGOT) 24 U/L 15-37 Not Available [facility] (Lab Registration) [address] [place], [address], 11/17/2024 18:13:28 11/17/19 25 11/17/2024 COMP METAB OLIC PANEL ALT (SGPT) 33 U/L 12-78 Not Available [facility] (Lab Registration) [address], [place], [address], 11/17/2024 18:13:28 11/17/19 25 11/17/2024 COMP METAB OLIC PANEL alk phosphatase 84 U/L 53-141 Not Available [facility] (Lab Registration) [address], [place], [address], 11/17/2024 18:13:28 11/17/19 25 11/17/2024 COMP METAB OLIC PANEL note Unles s other butts noted testi ng perfo rmed at: [facility] [address] [facility] [address] [place] [address] [phone] Corbin carrington MD CLIA: [id number] Not Available [facility] (Lab Registration) [address] [place], [address], 11/17/2024 18:13:28 11/17/19 25 11/17/2024 MAGNE SIUM magnesium 1.6 mg/dL 1.8-2. 4 low Not Available [facility] (Lab Registration) [address] [place], [address], 11/17/2024 18:13:30 11/17/19 25 11/17/2024 MAGNE SIUM note Unles s other butts noted testi ng perfo rmed at: [facility] [address] [place] [address] [phone] Corbin carrington MD CLIA: [id number] Not Available [facility] (Lab Registration) [address] [place], [address], 11/17/2024 18:13:30 02/15/20 25 02/14/2025 CULTU RE URINE results MRB 02-15 621 Mixed Moraima of Three or More Organ isms Prese nt. Cultu re Indic ates Conta minat ion of Speci men Durin gColl ectio n. Sugge st Recol lecti on with Steri le Techn ique. Not Available [facility] (Lab Registration) [address] , [place], [address], 02/15/2025 06:23:43 02/15/20 25 02/14/2025 CULTU RE URINE note Unles s other butts noted testi ng perfo rmed at: [facility] [address] [place] [address] [phone] Corbin carrington MD CLIA: [id number] Not Available [facility] (Lab Registration) [address] [place], [address], 02/15/2025 06:23:43 02/15/20 25 02/14/2025 urina lysis , dipst ick Leukocytes (reference range) small Not Available [facility] [address] [place], [address], 02/14/2025 11:13:31 02/15/20 25 02/14/2025 urina lysis , dipst ick Nitrite (reference range:) positi ve Not Available [address] [place], [address], 02/14/2025 11:13:31 02/15/20 25 02/14/2025 urina lysis , dipst ick Urobilinogen (reference range) 0.2 Not Available [address] [place], [address], 02/14/2025 11:13:31 02/15/20 25 02/14/2025 urina lysis , dipst ick Protein (reference range) negati ve Not Available [address] [place], [address], 02/14/2025 11:13:31 02/15/20 25 02/14/2025 urina lysis , dipst ick pH (reference range 5-8.5) 7.0 Not Available [address] [place], [address], 02/14/2025 11:13:31 02/15/20 25 02/14/2025 urina lysis , dipst ick Blood (reference range:) non-He molyze d: Trace Not Available [address] [place], [address], 02/14/2025 11:13:31 02/15/20 25 02/14/2025 urina lysis , dipst ick Specific Griffin (reference range) 1.010 Not Available [address] [place], [address], 02/14/2025 11:13:31 02/15/20 25 02/14/2025 urina lysis , dipst ick Ketone (reference range) negati ve Not Available [address] [place], [address], 02/14/2025 11:13:31 02/15/20 25 02/14/2025 urina lysis , dipst ick Bilirubin (reference range) negati ve Not Available [address] [place], [address], 02/14/2025 11:13:31 02/15/20 25 02/14/2025 urina lysis , dipst ick Glucose (reference range) 100 Not Available [address] [place], [address], 02/14/2025 11:13:31 02/15/20 25 02/14/2025 urina lysis , dipst ick Color (reference range: yellow-brown ) Yellow Not Available [address] [place], [address], 02/14/2025 11:13:31 02/20/20 25 02/19/2025 HEMOG LOBIN A1C glycosylated hemoglobin A1C 7.2 % 4.5-6. 2 high Not Available [facility] (Lab Registration) [address] [place], [address], 02/19/2025 14:13:06 02/20/20 25 02/19/2025 HEMOG LOBIN A1C estimated average glucose 160 mg/dL 82-131 high Not Available [facility] (Lab Registration) [address] [place], [address], 02/19/2025 14:13:06 02/20/20 25 02/19/2025 HEMOG LOBIN A1C note Unles s other butts noted testi ng perfo rmed at: [facility] [address] [place] [address] [phone] Corbin carrington MD CLIA: [id number] Not Available [facility] (Lab Registration) [address] [place], [address], 02/19/2025 14:13:06 02/20/20 25 02/19/2025 COMP METAB OLIC PANEL sodium 139 mmol/ L 136-14 5 Not Available [facility] (Lab Registration) [address] [place], [address], 02/19/2025 14:14:32 02/20/20 25 02/19/2025 COMP METAB OLIC PANEL potassium 3.7 mmol/ L 3.5-5. 1 Not Available [facility] (Lab Registration) [address] [place], [address], 02/19/2025 14:14:32 02/20/20 25 02/19/2025 COMP METAB OLIC PANEL chloride 99 mmol/ L 98-107 Not Available [facility] (Lab Registration) [address] [place], [address], 02/19/2025 14:14:32 02/20/20 25 02/19/2025 COMP METAB OLIC PANEL carbon dioxide 31 mmol/ L 21-32 Not Available [facility] (Lab Registration) [address] [place], [address], 02/19/2025 14:14:32 02/20/20 25 02/19/2025 COMP METAB OLIC PANEL anion gap 9.0 Not Available [facility] (Lab Registration) [address] [place], [address], 02/19/2025 14:14:32 02/20/20 25 02/19/2025 COMP METAB OLIC PANEL glucose 155 mg/dL 70-110 high Not Available [facility] (Lab Registration) [address] [place], [address], 02/19/2025 14:14:32 02/20/20 25 02/19/2025 COMP METAB OLIC PANEL blood urea nitrogen 19 mg/dL 7-18 high Not Available [facility] (Lab Registration) [address] [place], [address], 02/19/2025 14:14:32 02/20/20 25 02/19/2025 COMP METAB OLIC PANEL creatinine 0.9 mg/dL 0.6-1. 0 Not Available [facility] (Lab Registration) [address], [place], [address], 02/19/2025 14:14:32 02/20/20 25 02/19/2025 COMP METAB OLIC PANEL BUN/creatini ne ratio 21.1 9-21 high Not Available [facility] (Lab Registration) [address], [place], [address], 02/19/2025 14:14:32 02/20/20 25 02/19/2025 COMP METAB [...] palmer ing kiney funct ion. Not Available [facility] (Lab Registration) [address], [place], [address], 02/19/2025 14:14:32 02/20/20 25 02/19/2025 COMP METAB OLIC PANEL osmolality (calculated) 295 mOsm/ kg 275-30 1 OSMOL ALITY IS A CALCU LATIO N UTILI ZING THE SERUM /PLAS MA SODIU M, GLUCO SE AND UREA NITRO GEN (BUN) LEVEL S. FOR THE MOST ACCUR ATE RESUL T A MEASU RED SERUM OSMOL ALITY IS SUGGE STED. Not Available [facility] (Lab Registration) [address], [place], [address], 02/19/2025 14:14:32 02/20/20 25 02/19/2025 COMP METAB OLIC PANEL total protein 6.9 g/dL 6.4-8. 2 Not Available [facility] (Lab Registration) [address] [place], [address], 02/19/2025 14:14:32 02/20/20 25 02/19/2025 COMP METAB OLIC PANEL albumin 3.7 g/dL 3.4-5. 0 Not Available [facility] (Lab Registration) [address] [place], [address], 02/19/2025 14:14:32 02/20/20 25 02/19/2025 COMP METAB OLIC PANEL calcium 9.3 mg/dL 8.5-10 .1 Not Available [facility] (Lab Registration) [address] [place], [address], 02/19/2025 14:14:32 02/20/20 25 02/19/2025 COMP METAB OLIC PANEL corrected calcium 9.5 mg/dL 8.5-10 .1 Not Available [facility] (Lab Registration) [address] [place], [address], 02/19/2025 14:14:32 02/20/20 25 02/19/2025 COMP METAB OLIC PANEL bilirubin total 0.4 mg/dL 0.4-1. 5 Not Available [facility] (Lab Registration) [address] [place], [address], 02/19/2025 14:14:32 02/20/20 25 02/19/2025 COMP METAB OLIC PANEL AST (SGOT) 18 U/L 15-37 Not Available [facility] (Lab Registration) [address] [place], [address], 02/19/2025 14:14:32 02/20/20 25 02/19/2025 COMP METAB OLIC PANEL ALT (SGPT) 28 U/L 12-78 Not Available [facility] (Lab Registration) [address] [place], [address], 02/19/2025 14:14:32 02/20/20 25 02/19/2025 COMP METAB OLIC PANEL alk phosphatase 91 U/L 53-141 Not Available [facility] (Lab Registration) [address] [place], [address], 02/19/2025 14:14:32 02/20/20 25 02/19/2025 COMP METAB OLIC PANEL note Unles s other butts noted testi ng perfo rmed at: [facility] [address] [place] [address] [phone] Corbin carrington MD CLIA: [id number] Not Available [facility] (Lab Registration) [address], [place], [address], 02/19/2025 14:14:32 02/20/20 25 02/19/2025 LIPID PANEL triglyceride 111 mg/dL 20-200 The Natio nal Kim [employer] l [employer]ca tion Progr am (NCEP ) has set the follo wing guide lines for Fasti ng Trigl yceri ángel: TIMOTHY L: <150 mg/dL BORDE RLINE HIGH: 150 - 199 mg/dL HIGH: 200 - 499 mg/dL VERY HIGH: > or =500 mg/dL Not Available [facility] (Lab Registration) [address], [place], [address], 02/19/2025 14:14:34 02/20/20 25 02/19/2025 LIPID PANEL cholesterol 226 mg/dL 0-200 high The [employer]io nal [employer] l [employer]ca t[employer] Progr am (NCEP ) has set the follo wing guide lines for Fasti ng Kim stero l: JAVY ABLE: <200 mg/dL BORDE RLINE HIGH: 200 - 239 mg/dL HIGH: > or =240 mg/dL Not Available [facility] (Lab Registration) [address], [place], [address], 02/19/2025 14:14:34 02/20/20 25 02/19/2025 LIPID PANEL HDL cholesterol 70 mg/dL 60- The Natio nal [employer] l [employer]ca tion Progr am (NCEP ) has set the follo wing guide lines for Fasti ng HDL Kim stero l: LOW HDL: <40 mg/dL TIMOTHY L: 40 - 60 mg/dL JAVY ABLE: >60 mg/dL Not Available [facility] (Lab Registration) [address], [place], [address], 02/19/2025 14:14:34 02/20/20 25 02/19/2025 LIPID PANEL [...] > or = 190 mg/dL Not Available [facility] (Lab Registration) [address], [place], [address], 02/19/2025 14:14:34 02/20/20 25 02/19/2025 LIPID PANEL chol/HDL ratio 3 -5 Not Available [facility] (Lab Registration) [address], [place], [address], 02/19/2025 14:14:34 02/20/20 25 02/19/2025 LIPID PANEL note Unles s other butts noted testi ng perfo rmed at: [facility] [address] [place] [address] [phone] Corbin carrington MD CLIA: [id number] Not Available [facility] (Lab Registration) [address], [place], [address], 02/19/2025 14:14:34 04/27/20 25 04/27/2025 CULTU RE URINE results LT 04-28 630 >100, 000 COL/M L Gram Negat lexi Rods LT 04-28 631 IDENT IFICA TION AND SUSCE PTIBI LITY TESTI NG PERFO RMED AT [facility] [address] [place] [address] Not Available [facility] (Lab Registration) [address], [place], [address], 04/28/2025 06:31:08 04/27/20 25 04/27/2025 CULTU RE URINE note Unles s other butts noted testi ng perfo rmed at: [facility] [address] [place] [address] [phone] Corbin carrington MD CLIA: [id number] Not Available [facility] (Lab Registration) [address] , [place], [address], 04/28/2025 06:31:08 04/27/20 25 04/27/2025 CULTU RE URINE culccur ===== ===== ===== ===== ===== ===== ===== ===== ===== ===== ===== ===== ===== ===== ===== ===== ===== ===== ===== ===== ===== ===== ===== ===== Speci men NO.: [id number] Exam Statu s: Final Proce dure: [...] PTIBI LITY TESTI NG PERFO RMED AT [facility] [address] [place] [address] Not Available [facility] (Lab Registration) [address] , [place], [address], 04/29/2025 09:37:42 04/27/20 25 04/27/2025 CULTU RE URINE note Unles s other butts noted testi ng perfo rmed at: [facility] [address] [place] [address] [phone] Corbin carrington MD CLIA: [id number] Not Available [facility] (Lab Registration) [address] [place], [address], 04/29/2025 09:37:42 04/27/20 25 04/27/2025 micro album in/cr eatin ine, mass ratio , urine Microalbumin 30 Not Available [facility] [address] [place], [address], 04/27/2025 08:52:14 04/27/20 25 04/27/2025 micro album in/cr eatin ine, mass ratio , urine Creatinine 50 Not Available [address] [place], [address], 04/27/2025 08:52:14 04/27/20 25 04/27/2025 micro album in/cr eatin ine, mass ratio , urine Ratio 30-300 Not Available [address] [place], [address], 04/27/2025 08:52:14 04/27/20 25 04/27/2025 urina lysis , dipst ick Leukocytes (reference range) trace Not Available [address] [place], [address], 04/27/2025 07:54:29 04/27/20 25 04/27/2025 urina lysis , dipst ick Nitrite (reference range:) negati ve Not Available [address] [place], [address], 04/27/2025 07:54:29 04/27/20 25 04/27/2025 urina lysis , dipst ick Urobilinogen (reference range) 0.2 Not Available [address] [place], [address], 04/27/2025 07:54:29 04/27/20 25 04/27/2025 urina lysis , dipst ick Protein (reference range) negati ve Not Available [address] [place], [address], 04/27/2025 07:54:29 04/27/20 25 04/27/2025 urina lysis , dipst ick pH (reference range 5-8.5) 7.0 Not Available [address] [place], [address], 04/27/2025 07:54:29 06/13/04/27/2025 urina lysis , dipst ick Blood (reference range:) negati ve Not Available [address] [place], [address], 04/27/2025 07:54:29 04/27/20 25 04/27/2025 urina lysis , dipst ick Specific Griffin (reference range) 1.015 Not Available [address] [place], [address], 04/27/2025 07:54:29 04/27/20 25 04/27/2025 urina lysis , dipst ick Ketone (reference range) negati ve Not Available [address] [place], [address], 04/27/2025 07:54:29 04/27/20 25 04/27/2025 urina lysis , dipst ick Bilirubin (reference range) negati ve Not Available [address] [place], [address], 04/27/2025 07:54:29 04/27/20 25 04/27/2025 urina lysis , dipst ick Glucose (reference range) negati ve Not Available [address] [place], [address], 04/27/2025 07:54:29 04/27/20 25 04/27/2025 urina lysis , dipst ick Color (reference range: yellow-brown ) Pale Yellow Not Available [address] [place], [address], 04/27/2025 07:54:29 Result Notes None recorded. Problems Name Problem SNOMED Code Status Onset Date Resolution Date Notes Provider Name and Address Organization Details Recorded Time Diabetes mellitus without complicat ion 764244222 Active 2014 DANII SOUSA NP [address], [place], [address], [facility] & [place] 3 08:40:54 Generaliz ed osteoarth ritis 045659057 Active 2017 Barak Hutchinso n null, [place] [facility] & [place] 4 16:02:30 Depressiv e disorder 42356107 Active 2015 Barak Hutch[place] n [place] [facility] & [place] 4 16:02:34 Carotid artery obstructi on 37547021 Active 2017 Barak Hutch[place] n [place] - [place] & [place] 4 16:02:26 Epigastri c pain 75754999 Active 2019 Barak Hutch[place] n [place] & [place] 4 16:02:43 Body mass index 30+ - obesity 274805962 Active 2020 Barak Hutch[place] n [place] & [place] 4 16:02:24 Arthritis 1199973 Active 2020 Barak Hutch[place] & [place] 4 16:02:22 Hyperlipi demia 58395655 Active 2017 Barak Hutch[place] & [place] 4 16:02:46 Non-rheum atic mitral regurgita tion 743603498 Active 2017 Barak Hutch[place] & [place] 4 16:02:54 Essential hypertens ion 61361275 Active 2018 Barak Hutch[place] n [place] & [place] 4 16:02:45 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 83740578 Active 2019 Barak Hutch[place] & [place] 4 16:02:39 Insomnia 863518216 Active 2020 Insomnia Barak Hutchinso n [place] - [place] & [place] 4 16:02:50 Dependent edema 154142409 Active 2018 Barak Trinhso n [place] & [place] 4 16:02:31 Acute lower urinary tract infection 194555210 Active 2019 Barak Trinhso n [place] & [place] 4 16:02:20 Chest pain 86265172 Active 2019 Barak Jadchinso n [place] & [place] 4 16:02:28 Osteoarth ritis of right knee joint 411777353995 100 Active 2022 Barak Trinhso n [place] & [place] 4 16:02:56 Mixed hyperlipi demia 413276600 Active 2023 DANII SOUSA NP [address] [place], [address], [place] & [place] 4 08:07:06 Uncontrol led type 2 diabetes mellitus 952680982 Active 2023 DANII SOUSA NP [address] [place], [address], [place] & [place] 4 08:07:07 Problem Notes None recorded. Procedures Surgical History Date Name Laterality Status Provider Name and Address Organization Details Recorded Time 025 Medicare Annual Wellness Visit Health Risk Assessment completed Anna Ramirez [place] & [place] 04/27/2025 08:14:12 024 Medicare Annual Wellness Visit Health Risk Assessment completed Barak Brand [place] - [place] & [place] 03/21/2024 10:59:28 023 Medicare Annual Wellness Visit Health Risk Assessment completed Ebony MARSHALL - [place] - [place] & [place] 02/05/2023 08:24:14 Cholecystectomy completed Ebony MARSHALL - [facility] - [place] & [place] 08/11/2022 07:38:26 Tonsillectomy completed Ebony MARSHALL - [facility] - [place] & [place] 08/11/2022 07:38:36 Hysterectomy completed Ebony Ferguson [facility] & [place] 08/11/2022 07:38:49 complete repair of rotator cuff completed Ebony MARSHALL [facility] & [place] 08/11/2022 07:39:20 Tubal Ligation completed Ebony MARSHALL [facility] & [place] 08/11/2022 07:39:29 Cataract Surgery completed Ebony MARSHALL [facility] & [place] 08/11/2022 07:39:47 total knee replacement completed Ebony MARSHALL [facility] & [place] 08/11/2022 07:40:34 Imaging Results None recorded. Procedure Notes None recorded. Medical Equipment None Reported. Allergies Allergen ID Allergen Name Allergen Category Reaction Reaction Severity Criticality Documentation Date Start Date Code Code System Note Provider Name and Address Organization Details Recorded Time 777131 morphine medicatio n Not available Not available Not available 01/15/2025 7052 RxNorm Soheila simpson [facility] & [place] 5 08:10:24 382779 Iodinated contrast media (substanc e) medicatio n facial swelling other Not available Not available Not available 01/15/2025 85936 2003 SNOMED Oral swell ing Soheila simpson [facility] & [place] 5 08:11:29 8627 codeine medicatio n dyspnea nausea vomiting severe severe severe Not available 07/27/2022 2670 RxNorm [place] [facility] & [place] 5 16:04:59 8632 erythromy eryn medicatio n Not available Not available Not available 07/27/2022 4053 RxNorm Other react ions and sever ities : 'Adve rse react ion to subst ance' . Anastasia simpson [facility] & [place] 3 14:10:00 8637 oxycodone medicatio n Not available Not available Not available 07/27/2022 7804 RxNorm React ion: hallu cinat ions, sever ity: Unkno wn Not Available [facility] 2 01:57:01 8641 escitalop rufina Not available Not available Not available Not available 07/27/2022 32825 8 RxNorm React ion: night [place] espinal ity: Unkno wn Not Available [facility] 2 01:57:01 8646 sertralin e hydrochlo ride medicatio n Not available Not available Not available 07/27/2022 95969 7 RxNorm React ion: stoma ch upset , mary ity: Unkno wn Not Available [facility] 2 01:57:02 Medications Name Sig Start Date [...] Updated DateTime 5 157.48 cm 33.5 kg/m2 53787.4 g 98.7 [degF] 96 % 96 % 62 /min 145 mm[Hg] 78 mm[Hg] Barak pina [place] - [place] [facility] & [place] 14:23:26 Date Recorded Systolic blood pressure Diastolic blood pressure Provider Name and Address Organization Details Last Updated DateTime 01/26/2025 148 mm[Hg] 80 mm[Hg] DANII SOUSA NP [address] [place] [address], [address], [facility] & [place] 01/26/2025 14:28:48 Date Recorded Body height Body mass index (BMI) Body weight Body temperature Oxygen saturation Oxygen saturation in Arterial blood by Pulse oximetry Heart rate Systolic blood pressure Diastolic blood pressure Provider Name and Address Organization Details Last Updated DateTime 5 157.48 cm 34.6 kg/m2 37837.9 6 g 98.2 [degF] 95 % 95 % 60 /min 179 mm[Hg] 89 mm[Hg] Barak pina [place] - [facility] & [place] 14:10:03 Date Recorded Body height Body mass index (BMI) Body weight Body temperature Oxygen saturation Oxygen saturation in Arterial blood by Pulse oximetry Heart rate Respiratory rate Systolic blood pressure Diastolic blood pressure Provider Name and Address Organization Details Last Updated DateTime 5 157.48 cm 35 kg/m2 48492.5 g 97.5 [degF] 96 % 96 % 62 /min 16 /min 164 mm[Hg] 73 mm[Hg] Anna MARSHALL [facility] & [place] 5 11:08:21 Date Recorded Body height Body mass index (BMI) Body weight Body temperature Oxygen saturation Oxygen saturation in Arterial blood by Pulse oximetry Heart rate Respiratory rate Systolic blood pressure Diastolic blood pressure Provider Name and Address Organization Details Last Updated DateTime 5 157.48 cm 34.4 kg/m2 44260.3 7 g 97.3 [degF] 98 % 98 % 60 /min 18 /min 172 mm[Hg] 72 mm[Hg] Gagandeep Dailey [facility] & [place] 5 08:07:03 Date Recorded Systolic blood pressure Diastolic blood pressure Provider Name and Address Organization Details Last Updated DateTime 04/27/2025 148 mm[Hg] 68 mm[Hg] DANII SOUSA NP [address] [place] [address], [address], [place] [facility] & [place] 04/30/2025 16:55:20 Date Recorded Body height Body mass index (BMI) Body weight Body temperature Oxygen saturation Oxygen saturation in Arterial blood by Pulse oximetry Heart rate Respiratory rate Systolic blood pressure Diastolic blood pressure Provider Name and Address Organization Details Last Updated DateTime 5 157.48 cm 35.2 kg/m2 59689.4 5 g 97.2 [degF] 98 % 98 % 55 /min 14 /min 160 mm[Hg] 79 mm[Hg] Anna MARSHALL [facility] & [place] 5 08:08:03 Social History Question Answer Notes LastModified by Organizat ion Details LastModified Time Tobacco Smoking Status Never Smoker Not Available [facility] 02/05/2023 08:38:34 Do You Have An Advance Directive? Yes Information n ot available 04/27/2025 Do You Wear A Helmet When Biking? Yes [email or web address] Information not available 08/08/2024 Are You Blind Or Do You Have Difficulty Seeing? No [email or web address] Information n ot available 08/08/2024 What Is Your Level Of Caffeine Consumption? Moderate [email or web address] Information not available 02/05/2023 In The 14 Days Before Symptom Onset, Have You Had Close Contact With A Laboratory-confirm ed COVID-19 While That Case Was Ill? No [email or web address] Information n ot available 08/08/2024 In The 14 Days Before Symptom Onset, Have You Had Close Contact With A Person Who Is Under Investigation For COVID-19 While That Person Was Ill? No [email or web address] Information not available 08/08/2024 Have You Been To An Area Known To Be High Risk For COVID-19? No [email or web address] Information not available 08/08/2024 Are You Deaf Or Do You Have Serious Difficulty Hearing? No [email or web address] Information not available 08/08/2024 What Type Of Diet Are You Following? REGULAR [email or web address] Information n ot available 08/08/2024 Have You Processed Blood Or Body Fluids From An Ebola Virus Disease Patient Without Appropriate PPE? No [email or web address] Information not available 08/08/2024 Do You Reside In Or Have You Traveled To An Area Where Ebola Virus Transmission Is Active? No [email or web address] Information not available 08/08/2024 Have There Been Any Changes To Your Family Or Social Situation? No [email or web address] Information no t available 08/08/2024 What Is The Fluoride Status Of Your Home? Unknown [email or web address] Information not available 08/08/2024 Are There Any Guns Present In Your Home? No [email or web address] Information not available 08/08/2024 Have You Recently Or Are You Planning To Travel To An Area With Zika Virus? No [email or web address] Information not available 08/08/2024 Do You Use Insect Repellent Routinely? Yes [email or web address] Information not available 08/08/2024 In General, Would You Say Your Health Is Good [email or web address] Information not available 08/08/2024 How Would You Describe The Condition Of Your Mouth And Teeth including False Teeth Or Dentures? Good [email or web address] Information n ot available 08/08/2024 In The Past 7 Days, How Many Servings Of Fruits And Vegetables Did You Typically Eat Each Day? (1 Serving = 1 Cup Of Fresh Vegetables, 1 2 Cup Of Cooked Vegetables, Or 1 Medium Piece Of Fruit. 1 Cup = Size Of A Baseball.) 3-4 Servings Per Day [email or web address] Information not available 08/08/2024 In The Past 7 Days, How Many Servings Of High Fiber Or Whole Grain Foods Did You Typically Eat Each Day? (1 Serving = 1 Slice Of 100% Whole Wheat Bread, 1 Cup Of Whole-grain Or High-fiber Ccwgf-ck-nqs Cereal, 1 2 Cup Of Cooked Cereal Such As Oatmeal, Or 1 2 Cup Of Cooked Brown Rice Or Whole Wheat Pasta.) 3-4 Servings Per Day [email or web address] Information not available 08/08/2024 In The Past 7 Days, How Many Servings Of Fried Or High-fat Foods Did You Typically Eat Each Day? (Examples Include Fried Chicken, Fried Fish, [place], [place], Potato Chips, [place] Chips, Doughnuts, Creamy Salad Dressings, And Foods Made With Whole Milk, Cream, Cheese, Or Mayonnaise.) 1-2 Servings Per Day [email or web address] Information not available 08/08/2024 In The Past 7 Days, How Many Sugar-sweetened (not Diet) Beverages Did You Typically Consume Each Day 1-2 Drinks Per Day [email or web address] Information not available 08/08/2024 Each Night, How Many Hours Of Sleep Do You Usually Get? 6-7 Hours [email or web address] Information not available 08/08/2024 Do You Snore Or Has Anyone Told You That You Snore? No [email or web address] Information not available 08/08/2024 In The Past 7 Days, How Often Have You [place] Sleepy During The Daytime? Sometimes [email or web address] Information not available 08/08/2024 Do You Have Chronic Pain? Yes [email or web address] Information not available 08/08/2024 In The Past 7 Days, How Would You Rate Your Pain? Moderate Pain(4-6) [email or web address] Information not available 08/08/2024 Are You In A Pain Management Program? No [email or web address] Information not available 08/08/2024 Do You Take Opioids For Your Pain? No Information not available 08/08/2024 How Often Is Stress A Problem For You In Handling Such Things As: Your Health, Your Finances, Your Family And Social Relationships, Your Work? Never Or Rarely [email or web address] Information not available 08/08/2024 How Often Do You Get The Social And Emotional Support You Need: Always Information not available 08/08/2024 In The Past 7 Days, Did You Need Help From Others To Take Care Of Things Such As Laundry And Housekeep- Ing, Banking, Shopping, Using The Telephone, Food Preparation, Transportation, Or Taking Your Own Medications? No [email or web address] Information not available 08/08/2024 Do You Live Alone? No [email or web address] Inform ation not available 08/08/2024 Does Your Home Have Any Fall Risks (un-level Floors, Unfastened Rugs, Poor Lighting, Etc)? No [email or web address] Information not available 08/08/2024 Do You Feel Safe At Home? Yes [email or web address] Information not available 08/08/2024 Do You Have A Medical Power Of Shake Backboard Notcher? Yes Information not available 04/27/2025 What Was The Date Of Your Most Recent Tobacco Screening? 01/26/2025 [email or web address] Information not available 01/26/2025 Do You Have Any Pets? No [email or web address] Information not available 08/08/2024 What Is Your Relationship Status? Information not available 04/27/2025 Do You Use Your Seat Belt Or Car Seat Routinely? Yes [email or web address] Information not available 08/08/2024 Are You Sexually Active? No Information not available 04/27/2025 Do You Have Smoke And Carbon Monoxide Detectors In Your Home? Yes [email or web address] Information not available 08/08/2024 Are You Passively Exposed To Smoke? No [email or web address] Information no t available 08/08/2024 Do You Use Sunscreen Routinely? Yes Information not available 08/08/2024 Has Tobacco Cessation Counseling Been Provided? No [email or web address]_[email or web address] Information not available 02/05/2023 Do You Have Difficulty Walking Or Climbing Stairs? No [email or web address] Information not available 08/08/2024 Are You Currently In School? No [email or web address] Information not available 08/08/2024 Sex: Unknown Functional [...] available 02/05/2023 Are you currently employed? No [email or web address] Information not available 08/08/2024 Do you have transportation difficulties? No mriihpjx96 Information not available 08/08/2024 Are you able to walk? YESWOREST jnpibsxw68 Information not available 08/08/2024 Do you have difficulty doing errands alone? No ygjrebxw95 Information not available 08/08/2024 Are you able to care for yourself? Yes [email or web address] Information not available 08/08/2024 Do you have difficulty dressing or bathing? No [email or web address] Information not available 08/08/2024 What is your exercise level? None [email or web address] Information not available 08/08/2024 Mental Status Question Answer Note LastModified by Organizat ion Details LastModified Time Do you feel stressed (tense, restless, nervous, or anxious, or unable to sleep at night)? [id number] [email or web address] Information not available 08/08/2024 Do you have difficulty concentrating, remembering or making decisions? No [email or web address] Information no t available 08/08/2024 Family History Relationship Description Onset Age of this Age Resolved Age Notes LastModified by Organization Details LastModified Time Mother Congestive heart failure deceas ed CHART_MERGE Not available 02/05/2023 08:38:32 Mother Coronary arterioscler osis deceas ed CHART_MERGE Not available 02/05/2023 08:38:32 Father Coronary arterioscler osis deceas ed CHART_MERGE Not available 02/05/2023 08:38:32 Father Cerebrovascu lar accident deceas ed CHART_MERGE Not available 02/05/2023 08:38:32 Brother Coronary arterioscler osis CHART_MERGE Not available 01/14 08:38:32 Brother Essential hypertension CHART_MERGE Not available 0 02/05/2023 08:38:32 Brother Chronic obstructive pulmonary disease deceas ed CHART_MERGE Not available 02/05/2023 08:38:32 Sister Essential hypertension CHART_MERGE Not available 0 02/05/2023 08:38:32 Sister deceas ed CHART_MERGE Not available 02/05/2023 08:38:33 Medical History Condition Response Diabetes Y High Cholesterol Y Hypertension Y Depression Y Gynecological HistoryNo gynecological history recorded. Obstetrics History GPAL:G 0 P 0 0 0 0 Immunizations Vaccine Type Date Status Note Provider Nam e and Address Organization Details Recorded Time Influenza, high-dose, quadrivalent, PF 2 completed DANII SOUSA NP [address] [place], [address], [facility] [place] 08/12/2022 18:44:27 COVID-19, mRNA, LNP-S, PF, 30 mcg/0.3 mL dose 1 completed Not Available [facility] 06/21/2023 11:42:37 COVID-19, mRNA, LNP-S, PF, 30 mcg/0.3 mL dose 1 completed Not Available [facility] 06/21/2023 11:42:37 Influenza, adjuvanted, quadrivalent, PF 1 completed Not Available [facility] 06/21/2023 11:42:37 Pneumococcal conjugate PCV20, polysaccharide CWC181 conjugate, adjuvant, PF 2 completed Not Available [facility] 06/21/2023 11:42:37 COVID-19, mRNA, LNP-S, PF, 30 mcg/0.3 mL dose, lam-sucrose 2 completed Not Available [facility] [facility] 06/21/2023 11:42:37 Tdap 3 completed DANII SOUSA NP [address] [place], [address], [facility] - [facility] & [place] 08/02/2023 16:19:22 Influenza, high-dose, quadrivalent, PF 3 completed DANII SOUSA NP [address] [facility], [place], [address], [facility] & [place] 08/02/2023 16:19:22 COVID-19, mRNA, LNP-S, bivalent, PF, 30 mcg/0.3 mL dose 2 completed Not Available [facility] 06/21/2023 11:42:37 Influenza, split virus, trivalent, PF 7 completed Not Available [facility] 06/21/2023 11:42:37 COVID-19, mRNA, LNP-S, PF, 30 mcg/0.3 mL dose 1 completed Not Available [facility] 06/21/2023 11:42:37 Influenza, split virus, trivalent, PF 5 completed Not Available [facility] 06/21/2023 11:42:37 pneumococcal polysaccharide PPV23 6 completed Not Available [facility] 06/21/2023 11:42:37 Influenza, adjuvanted, quadrivalent, PF 0 completed Not Available [facility] 06/21/2023 11:42:37 Pneumococcal conjugate PCV 13 5 completed Not Available [facility] 06/21/2023 11:42:37 RSV, recombinant, protein subunit RSVpreF, adjuvant reconstituted, 0.5 mL, PF 3 completed Barak Brand null, [place] - [facility] - [place] & [place] 02/01/2024 07:57:45 COVID-19, mRNA, LNP-S, PF, lam-sucrose, 30 mcg/0.3 mL 3 completed Barak Brand null, [place] - [facility] [place] & [place] 02/01/2024 07:57:45 Influenza, high-dose, trivalent, PF 4 completed Barak Brand null, [place] [facility] [place] [facility] [place] 08/21/2024 10:57:57 zoster recombinant 4 completed Barak Brand null, [place] - [facility] - [place] & [place] 08/21/2024 10:58:08 zoster recombinant 5 completed DANII SOUSA NP [address] [place] [address], [place], [address], [place] - [facility] [place] & [place] 11/19/2024 11:15:16 COVID-19, mRNA, LNP-S, PF, 50 mcg/0.5 mL 5 completed Anna Ramirez null, [place] - [facility] - [place] & [place] 04/27/2025 08:08:31 Past Encounters Encounter ID Performer Location Encounter Start Date Encounter Closed Date Diagnosis/Indication Diagnosis SNOMED-CT Code Diagnosis ICD10 Code Diagnosis Note [id number] [address] 08/11/2022 09:21:11 08/11/2022 11:02:12 Diabetes mellitus without complication 216676635 E11.9 take medication s as prescribed awaiting [id number] forced diet and lifestyle changesdai ly foot checkyearl y eye examfollow up every 3 months Essential hypertension 53242864 I10 educated on goal of less than 130/90repo rts running 100 to 140 at home, declines changing medication s, will take her lasix today to help with BPadvised low sodium diet, healthy lifestyle including exercise as ablecontin ue current medication regimenER if any symptoms such as chest pain, shortness of breath Mixed hyperlipidemia 267 998109 E78.2 Administra tion of influenza vaccine 80527782 Z23 [id number] KEMI TANG[address] [address] 10/16/2022 11:47:46 10/16/2022 12:26:26 Cough 62526476 R05.1 Acute bronchitis 1827793 2 J20.9 Upper resp iratory infection 64705255 J06.9 Patient presented with symptoms of upper [...] to 2 weeks if symptoms not improving. [id number] KEMI TANG[address] [address] 11/05/2022 07:51:33 11/05/2022 08:36:28 Diabetes mellitus without complication 975479552 E11.9 take medication s as prescribed awaiting aubf0bmcuj forced diet and lifestyle changesdai ly foot checkyearl y eye examfollow up every 3 months lab work drawn in clinic today by jessica Essential hypertension 31586200 I10 educated on goal of less than 130/90advi sed low sodium diet, healthy lifestyle including exercise as ablecontin ue current medication regimenER if any symptoms such as chest pain, shortness of breath Mixed hyperlipidemia 267 597651 E78.2 [id number] DANII SOUSA, KEMI [facility] [address] [address] 02/05/2023 07:46:08 02/05/2023 08:56:11 Diabetes mellitus without complication 504791901 E11.9 take medication s as prescribed awaiting ufhr9ztsf been 8 and not controlled reinforced diet and lifestyle changesdai ly foot checkyearl y eye examfollow up every 3 monthsunab le to afford shannaga has been using samples lab work drawn in clinic today by jessica Adult heal th examination 027673716 Z00.00 Patient presented to office today for [...] and promote healthy living. Mixed hyperlipidemia 267 716276 E78.2 Patient advised to exercise, eat a prudent diet and lose weight as appropriat e. 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 [id number] DANII SOUSA NP [address] [place] [address] 04/23/2023 13:35:45 04/23/2023 15:12:24 Essential hypertension 39722279 I10 educated on goal of less than 130/90meet ing goaladvise d low sodium diet, healthy lifestyle including exercise as ablecontin ue current medication regimenER if any symptoms such as chest pain, shortness of breath Pre-surger y evaluation 013929050 Z01.818 EKG reviewed; normal sinus rhythm without acute concernsfo rm filled out, scanned into chart and faxed to [facility] [id number] 24105 M27.939 see scanned in document for surgery clearancea verage risk based on ASC risk calculator Diabetes m ellitus without complication 837750685 E11.9 take medication s as prescribed awaiting blre8lwceo forced diet and lifestyle changesdai ly foot checkyearl y eye examfollow up every 3 monthsunab le to afford [employer] has been using samples; pt assistance forms given lab work drawn in clinic today by levy sousa left am [id number] DANII SOUSA NP [address] [place] [address] 08/02/2023 08:20:37 08/02/2023 08:59:59 Diabetes mellitus without complication 106761672 E11.9 declines statintake medication s as prescribed awaiting vhfp7wwkns forced diet and lifestyle changesdai ly foot checkyearl y eye examfollow up every 3 months Essential hypertension 22272578 I10 educated on goal of less than 130/90meet ing goaladvise d low sodium diet, healthy lifestyle including exercise as ablecontin ue current medication regimenER if any symptoms such as chest pain, shortness of breath Administra tion of influenza vaccine 64794269 Z23 Administra tion of viral vaccine 17258493 Z23 [id number] DANII SOUSA NP [address] [place] [address] 09/08/2023 11:49:14 09/08/2023 12:23:58 Bunion 489162558 M21.619 see scanned in document Foot callus 136201803 L8 4 Type 2 chrissy betes mellitus 12614704 E11.9 control of chronic conditions check feet dailyneeds good supportive shoes Osteoarthritis 970467906 M19.90 discussed use only as needed due to risk of kidney impairment [id number] Amish Caicedo MD [address] [place] [address] 10/29/2023 09:50:31 10/29/2023 10:47:36 Diabetes mellitus without complication 366584839 E11.9 declines statintake medication s as prescribed awaiting nymk6dcukj forced diet and lifestyle changesdai ly foot checkyearl y eye examfollow up every 3 months Essential hypertension 81331140 I10 educated on goal of less than 130/90meet ing goaladvise d low sodium diet, healthy lifestyle including exercise as ablecontin ue current medication regimenER if any symptoms such as chest pain, shortness of breath [id number] DANII SOUSA NP [address] [place] [address] 02/01/2024 07:48:34 02/01/2024 08:44:16 Diabetes mellitus without complication 695447748 E11.9 declines statintake medication s as prescribed awaiting nles1ecvgj forced diet and lifestyle changesdai ly foot checkyearl y eye examfollow up every 3 months Essential hypertension 79382168 I10 educated on goal of less than 130/90meet ing goaladvise d low sodium diet, healthy lifestyle including exercise as ablecontin ue current medication regimenER if any symptoms such as chest pain, shortness of breath Pain of mu ltiple joints 19605382 M25.50 pt concerns with osteo vs RAawaiting lab workcontin ue diclofenac therapy Insomnia 287005455 G47.0 9 sleep hygieneres tart trazodone Osteoarthritis 615361928 M19.90 discussed use only as needed due to risk of kidney impairment [id number] Amish Caicedo MD [address] [place] [address] 02/02/2024 08:01:21 02/02/2024 08:10:16 Laboratory test due 184896800 Z76.89 rey did not draw enough blood pt had to return [id number] DANII SOUSA NP [address] [place] [address] 03/21/2024 10:33:49 03/21/2024 13:39:04 Adult health examination 028255707 Z00.00 Patient presented to office today for [...] reduce health risks and promote healthy living. [id number] DANII SOUSA NP [address] [place] [address] 05/09/2024 07:49:14 05/09/2024 09:03:22 Essential hypertension 09999679 I10 educated on goal of less than 130/90advi sed low sodium diet, healthy lifestyle including exercise as ablecontin ue current medication regimenER if any symptoms such as chest pain, shortness of breath Diabetes m ellitus without complication 029671840 E11.9 declines statintake medication s as prescribed awaiting cmnn2upzax forced diet and lifestyle changesdai ly foot checkyearl y eye examfollow up every 3 months Herpes zoster 5342124 B0 2.9 discussed medication shingles careadd on gabapentin for pain [id number] DANII SOUSA NP [address] [place] [address] 04/26/2024 09:43:46 04/27/2024 09:26:56 Nasal congestion 81338396 R09.81 flu and covid negative but likely too early to teststay well hydratedre stsymptoma tic management ; only OTC medication s safe for HTNER if any urgent signs or symptoms arise Herpes zoster 0148989 B0 2.9 discussed medication shingles care Essential hypertension 57107008 I10 took OTC medication this morning that has increased BPasymptom aticf/u Wednesday to outside sales manager if any urgent signs or symptoms arise [id number] TAFFANY AMBURGEY, SECOND FLOOR OPERATOR [address] [place] [address] 04/28/2024 09:01:08 04/28/2024 11:30:53 Essential hypertension 59446074 I10 educated on goal of less than 130/90advi sed low sodium diet, healthy lifestyle including exercise as ablecontin ue current medication regimenimp roved from last visit, refill providedER if any symptoms such as chest pain, shortness of breath Herpes zoster 0727722 B0 2.9 discussed medication shingles careadd on gabapentin for pain [id number] Amish Caicedo MD [address] [place] [address] 06/30/2024 14:07:38 06/30/2024 14:48:32 Cough 29608836 R05.1 COVID-19 296205404 U07.1 declines nebulizer or inhaler therapy due to adverse reactionss kesha well hydratedre stmedicati ons as prescribed symptomati c management quarantine guidelines based on current [facility]/ [facility] guidelines ER if any urgent signs or symptoms arisediscu ssed risk vs benefit of paxlovid, possible medication interactio ns Essential hypertension 05084848 I10 clonidine dose given in clinic; no adverse reactions to medication and BP recheck after 20 minutes was 180/90asym ptomaticwi shes to monitor and go to ER if does not improve; reports son lives with her and will check on her frequently [id number] Amish Caicedo MD [address] [place] [address] 08/08/2024 08:17:52 08/08/2024 09:01:12 Essential hypertension 56088738 I10 educated on goal of less than 130/90advi sed low sodium diet, healthy lifestyle including exercise as ablecontin ue current medication regimenER if any symptoms such as chest pain, shortness of breath Mixed hyperlipidemia 267 583705 E78.2 declines statin therapy, continue with lifestyle changes Uncontroll ed type 2 diabetes mellitus 403298780 E11.65 take medication s as prescribed awaiting iezz2quwqh forced diet and lifestyle changesdai ly foot checkyearl y eye examfollow up every 3 months Low back pain 355937698 M54.50 discussed heat, topical therapy will give steroid injection today of 4 in 40, follow-up if symptoms persist will recommend imaging and physical therapyde lines giving urine to check for UTI [id number] DANII SOUSA NP [facility] [address] [facility] [place] [address] 08/21/2024 09:01:51 08/21/2024 11:59:38 Administration of influenza vaccine 42963173 Z23 Herpes zos ter vaccination given 0047123651 40060 Z23 Essential hypertension 39440347 I10 educated on goal of less than 130/90advi sed low sodium diet, healthy lifestyle including exercise as ablecontin ue current medication regimenER if any symptoms such as chest pain, shortness of breath Osteoarthr itis of right hip joint 1637923683 91824 M16.11 return to ortho for injectionu nable to afford repeat xrays right now 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 will restart gabapentin that she still has to see if relieves [id number] DANII SOUSA NP [facility] [address] [facility] [place] [address] 11/17/2024 14:11:38 11/17/2024 15:21:16 Fatigue 17856414 R53.83 blood drawn in the Left forearm by Anna Ramirez CMA, patient tolerated well.sleep hygieneawa iting lab workdeclin es sleep study at this time Essential hypertension 76023002 I10 educated on goal of less than 130/90advi sed low sodium diet, healthy lifestyle including exercise as ablecontin ue current medication regimenER if any symptoms such as chest pain, shortness of breath Insomnia 286698657 G47.0 9 continue with trazodone therapywor k on overactive bladder Type 2 chrissy betes mellitus 67694631 E11.9 control of chronic conditions check feet dailyneeds good supportive shoestake medication s as prescribed awaiting epwz8ynraq forced diet and lifestyle changesdai ly foot checkyearl y eye examfollow up every 3 months Active or passive immunization 533148765 Z23 Overactive urinary bladder 164718033 N32.81 discussed starting medication including administra tion, side effectsedu cation provided on disease processuna ble to give urine today in clinic to check for UTI [id number] TAFFANY AMBURGEY, SECOND FLOOR OPERATOR [address] [place] [address] 02/19/2025 07:45:49 02/19/2025 08:31:09 Uncontrolled type 2 diabetes mellitus 395570877 E11.65 take medication s as prescribed awaiting fwol3yzhul forced diet and lifestyle changesdai ly foot checkyearl y eye examfollow up every 3 months Mixed hyperlipidemia 267 793353 E78.2 declines statin therapy, continue with lifestyle changes Recurrent urinary tract infection 989994444 N39.0 Taking her last dose of Macrobid today, unable to give urine, urinated before she came in today, follow-up if symptoms return, currently reports symptoms have resolved Overactive urinary bladder 074697336 N32.81 continue with oxybutynin therapy, much improved Essential hypertension 79530103 I10 educated on goal of less than 130/90advi sed low sodium diet, healthy lifestyle including exercise as ableelevat ed today because she has not had her medication yet, asymptomat icER if any symptoms such as chest pain, shortness of breath [id number] DANII SOUSA NP [address] [place] [address] 01/26/2025 13:54:16 01/29/2025 08:25:49 Disorder of eyelid 79560517 H02.89 cool compresses , keep clean and [...] her to get diarrhea, okay with topical [id number] Amish Caicedo MD [address] [place] [address] 02/14/2025 10:40:47 02/14/2025 11:20:31 Dysuria 11648521 R30.0 will treat patient empiricall y with medication . We are awaiting results of culture. [id number] DANII SOUSA NP [address] [place] [address] 04/27/2025 07:47:15 05/01/2025 08:18:11 Adult health examination 531956494 Z00.00 Patient presented to office today for [...] living. Uncontroll ed type 2 diabetes mellitus 992867068 E11.65 take medication s as prescribed awaiting rhog9dzsqk forced diet and lifestyle changesdai ly foot checkyearl y eye examfollow up every 3 months Mixed hyperlipidemia 267 663848 E78.2 declines statin therapy, continue with lifestyle changes Essential hypertension 13218065 I10 educated on goal of less than 130/90advi sed low sodium diet, healthy lifestyle including exercise as ablecontin ue current medication regimenER if any symptoms such as chest pain, shortness of breath Dysuria 21077960 R30.0 Office UA suggesting UTI, urine sent [...] emergency room immediatel y Low back pain 602419432 M54.50 discussed heat, , follow-up if symptoms persist will recommend imaging and physical therapy Heart murmur 23002650 R0 1.1 asymptomat icget baseline echo; declines cardiology at this time Screening for osteoporosis 883698040 Z13.820 Fatigue 91668587 R53.83 we will plan to get lab work at next visit Educated on sleep hygiene, screen time, diet, exercise Follow-up if symptoms persist or worsen discussed anxiety and considerin vonnie Gomezaldemond due to her chronic pain this may be a good fit for her chronic pain and anxiety Contusion of left foot [id number] 5162874 S90.32XA reports comes and goes, will document [...] Member ID Mendoza Member ID Guarantor Name 05/08/2025 1 MARCELOA (MEDICARE REPLACEMENT/A DVANTAGE - PPO) Oly Jones [id number] Notes Date Note Type Note Provider Name and Address Organization Details Recorded Time 11/17/2024 text/html 83-year-old martin hansen who presents for follow-up on chronic care. [...] is up and down. DANII SOUSA NP [address] [place] [address], [address], [facility] & [place] 11/19/2024 11:18:45 01/26/2025 text/html 84-year-old martin hansen who presents with right eye drainage, itchy, slight burning, denies any changes to vision. This is the same eye that she had shingles around her skin. Denies any fever, chills. Denies any new eye products. DANII SOUSA NP [address] [place], [address], [facility] & [place] 01/26/2025 14:28:53 02/14/2025 text/html Patient presents with symptoms suggestive of a UTI. These include urinary frequency, dysuria and urgency. She denies having a fever, nausea or vomiting. Amish Caicedo MD [address] [place], [address], [facility] & [place] 02/14/2025 11:33:38 02/19/2025 text/html 84-year-old martin hansen [...] on her feet. DANII SOUSA NP [address] [facility], [place], [address], [facility] & [place] 02/19/2025 08:25:13 04/27/2025 text/html Patient presents for [...] went, not present today DANII SOUSA NP [address] [facility], [place], [address], [facility] - [facility] & [place] 04/30/2025 17:03:08 OBGyn Episode No OBEpisode recorded.
[2025-05-09 10:14] LABS: Basophils # 0.1 K/mm3 (0-0.2); Basophils % 0.6 % (0.1-2.0); Eosinophils # 0.8 Kmm3 (0.0-0.4); Eosinophils % 6.6 % (0.1-12.0); Hematocrit 43.8 % (37.0-47.0); Hemoglobin 14.4 g/dL (12.2-16.2); Immature Granulocytes # 0.07 10^3uL; Immature Granulocytes % 0.6 %; Lymphocytes # 1.7 K/mm3 (0.7-4.5); Lymphocytes % 13.7 % (10-50); Mean Corpuscular HGB Conc 32.9 g/dL (31.8-35.4); Mean Corpuscular Hemoglobin 28.2 pg (27.0-31.2); Mean Corpuscular Volume 85.7 fl (81-99); Mean Platelet Volume 8.9 fl (7.4-10.4); Monocytes # 0.7 K/mm3 (0.1-1.0); Monocytes % 5.4 % (1.7-9.3); Neutrophils % 73.1 % (37.0-80.0); Nucleated Red Blood Cells # 0 10^3/uL; Nucleated Red Blood Cells % 0 %; Platelet Count 419 K/mm3 (142-424); Red Blood Count 5.11 M/mm3 (4.20-5.40); Red Cell Distribution Width 13.2 % (11.5-17.5); Red Cell Distribution Width-SD 41.2 fL; White Blood Count 12.3 K/mm3 (4.8-10.8)
[2025-05-09 10:56] LABS: Chloride 88 mmol/L (98-107); Sodium 134 mmol/L (136-145)
[2025-05-09 10:59] LABS: Blood Urea Nitrogen 23 mg/dl (7-17); Calcium 9.2 mg/dl (8.4-10.2); Carbon Dioxide 35 mmol/L (22.0-30.0); Estimated Glomerular Filt Rate 68 ml/min (>60); GFR (African American) 83 ML/MIN (>60); Glucose 222 mg/dl (74-100)
== END 2025-05-09 23:59 | disposition home or self-care (01) ==
LOC: LAB 09:54
PROVIDERS: PCP Nurse Practitioner Family; Visit Provider Nurse Practitioner
DX: I21.4 Non-ST elevation (NSTEMI) myocardial infarction (principal)
CPT/HCPCS: 36415; 80048; 85025

== ENCOUNTER 2025-06-08 12:26 | Outpatient (RCR) | payer MEDICARE, SELFPAY | END 2025-07-13 08:00 | disposition home or self-care (01) | LOC: CR 12:26 | PROVIDERS: Visit Provider Internal Medicine | DX: Z48.812 Encounter for surgical aftercare following surgery on the circulatory system (principal); Z95.5 Presence of coronary angioplasty implant and graft | CPT/HCPCS: 93798 ==

== ENCOUNTER 2025-06-18 05:42 | Observation (INO) | payer MEDICARE, SELFPAY ==
[2025-06-18] VITALS (35 sets, daily range): BP systolic 104–172; BP diastolic 51–90; PULSE 49–64; RESP 12–27; TEMP 36.3–36.8; O2SAT 93–100; BMI 32.9
--- NOTE | 2025-06-18 | IR_ITS ---
APPROVED REPORT Patient Location: Inpatient PROCEDURES Left heart catheterization Left ventriculogram Selective coronary angiogram INDICATION Acute non-ST elevation myocardial infarction, Coronary artery disease Informed consent was obtained prior to the procedure. COMPLICATIONS None Estimated Blood Loss: Less than 10 mls TECHNIQUE One percent lidocaine used to anesthetize the right anterior aspect of the wrist. The right radial artery was accessed via the Seldinger technique. A 6 Swazi sheath was placed in the right radial artery. 2.5 mg of Verapamil, 800 mcg of nitroglycerin, 1mg Lidocaine and 5000 U Heparin were given through the arterial sheath. The JL3 catheter was also used to perform left heart catheterization, left ventriculogram and selective coronary angiogram. At the end of the procedure the sheath was removed good hemostasis was achieved using Traclet band, patient was transferred to the postop holding area in stable condition. ANGIOGRAPHIC RESULTS The left main artery Normal The left anterior descending artery Has a stent in the proximal segment which is widely patent free of in-stent restenosis with excellent proximal and distal transitioning. The circumflex artery Dominant with diffuse 10% luminal regularities The right coronary artery Nondominant yet still large with diffuse 10 to 20% luminal regularities The MOTT ventriculogram reveals Normal 60 to 65% The left ventricular end-diastolic pressure 15 to 20 mmHg IMPRESSION Widely patent coronary arteries Normal ejection fraction Mildly elevated LVEDP PLAN 1. Continue medical management Electronically signed by : Sim Chiu MD 06/18/2025 14:59:00
--- NOTE | 2025-06-18 05:49 | ECG_ITS ---
APPROVED REPORT Exam: Resting ECG HR:58 bpm ECG Measurements Heart Rate 58 AXES MN 187 P 41 QRSd 94 QRS -12 QT 433 T -10 QTc 430 Conclusion SINUS BRADYCARDIA MINIMAL VOLTAGE CRITERIA FOR LVH, CONSIDER NORMAL VARIANT [MEETS CRITERIA IN ONE OF: R(aVL), S(V1), R(V5), R(V5/V6)+S(V1)] SEPTAL MYOCARDIAL INFARCTION , OF INDETERMINATE AGE [40+ ms Q WAVE IN V1/V2] ABNORMAL ECG UNCONFIRMED REPORT Electronically signed by : Tate Stafford MD 06/18/2025 18:19:33
--- OUTSIDE RECORDS SUMMARY | 2025-06-18 05:57 | XMS_ITS | Clinical Summary ---
Author Organization [facility] Address [address] [place] [address] Care Team Providers Care Fireworks Display Specialist Name Role Phone Marco Cabezas ALAYNA Primary Care Provi ata Allergies Active Allergy Reactions Criticality Noted Date Comments Codeine Shortness Of Breath High 05/15/2017 Medications METFORMIN HCL PO Take by mouth. Active GLIPIZIDE PO Take by mouth. Active LOSARTAN POTASSIUM PO Take by mouth. Active amoxicillin-clavu lanate (AUGMENTIN) 875-125 MG per tabletIndications :Acute recurrent pansinusitis Take 1 tablet by mouth 2 (Two) Times a Day. 20 tablet 07/15/2018 Active Hospital, Clinic, or Other Facility Administered Medication Ordered Dose Route Frequency Start Date End Date Status levalbuterol (XOPENEX) nebulizer solution 1.25 mgIndications:Wheeze 1.25 mg NEBULIZATION Once 05/15/2017 Ac tive Active Problems No known active problems Immunizations Immunization Administration Dates Next Due PPD Test 06/28/2017 Social History Tobacco Use Types Packs/Day Years Used Date Smoking Tobacco: Never Abuse Screen Answer Date Recorded Unsafe at Home or Work/School Not on file Feels Threatened by Someone? Not on file 07/2023 Does Anyone Keep You from Co ntacting Others or Doint Things Outside the Home? Not on file 08/23/2023 Physical Sign of Abuse Present Not on file 1 Housing Stability Answer Date Recorded Current Living Arrangements Not on file 07/2023 Potentially Unsafe Housing Conditions Not on tory e 08/23/2023 Family and Community Support Answer Prince e Recorded Help with Day-to-Day Activities Not on file 08/23/2023 Lonely or Isolated Not on file 08/23/2023 Employment Answer Date Recorded Do you want help finding or keeping work or a aicha b? Not on file 08/23/2023 Disabilities Answer Date Recorded Concentrating, Remembering, or Making Decisions Difficulty Not on file 08/23/2023 Doing Errands Independently Difficulty Not on fi le 08/23/2023 Education Answer Date Recorded Help with school or training? Not on file Preferred Language Not on file 08/23/2023 Comments No Sex and Gender Information Value Date Recorded Sex Assigned at Not on file Legal Sex Female 10:33 AM EDT Gender Identity Not on file Sexual Orientation Not on file Last Filed Vital Signs Vital Sign Reading Time Taken Comments Blood Pressure 132/86 07/15/2018 1:34 PM EDT Pulse 95 07/15/2018 1:34 PM EDT Temperature 36.6 C (97.8 F) 07/15/2018 1:34 PM EDT Respiratory Rate 14 07/15/2018 1:34 PM EDT Oxygen Saturation 95% 07/15/2018 1:34 PM EDT Inhaled Oxygen Concentration - - Weight 87.1 kg (192 lb) 07/15/2018 1:34 PM EDT Height 157.5 cm (5' 2 ) 07/15/2018 1:34 PM EDT Body Mass Index 35.12 07/15/2018 1:34 PM EDT Plan of Treatment Health Maintenance Due Date Last Done Comments DXA SCAN 1940 TDAP/TD VACCINES (1 - Tdap) 1959 ZOSTER VACCINE (1 of 2) 1990 RSV Vaccine - Adults (1 - 1- dose 75+ series) 2015 ANNUAL PHYSICAL 05/15/2017 COVID-19 Vaccine (6 - 2023-2 5 season) 2024 11/13/2022, 06/15/2022, 08/29/2021, Additional history exists INFLUENZA VACCINE 08/15/2025 08/29/2021 Pneumococcal Vaccine 50+ Completed 06/15/2022 Insurance [employer] Care Teams Fireworks Display Specialist Relationship Specialty Start Date End Date Marco Cabezas APRN [address] [place] [address] PCP - General Nurse Practitioner 11/15/22
--- NOTE | 2025-06-18 05:59 | XR_ITS ---
PROCEDURE INFORMATION: Exam: XR Chest Exam date and time: 06/18/2025 6:02 AM Age: 84 years old Clinical indication: Pain; Other: Cp TECHNIQUE: Imaging protocol: Radiologic exam of the chest. Views: 1 view. COMPARISON: CR XR CHEST PORTABLE 05/04/2025 10:11 AM FINDINGS: Lungs: Unremarkable. No consolidation. Pleural spaces: Unremarkable. No pleural effusion. No pneumothorax. Heart/Mediastinum: Unremarkable. No cardiomegaly. Bones/joints: Degenerative changes are noted in the bones. Metallic fixation anchors overlie the left humeral head. IMPRESSION: No acute cardiopulmonary disease.
--- NOTE | 2025-06-18 06:00 | HMH.EDGENADL ---
Discharge Plan Disposition Patient Disposition: Admitted Prescriptions Prescriptions: No Action atenolol 50 mg tablet 50 mg PO DAILY Qty: 90 3RF atorvastatin 40 mg tablet 40 mg PO HS Qty: 90 3RF bumetanide 1 mg tablet 1 mg PO DAILY Qty: 90 3RF clopidogrel 75 mg tablet 75 mg PO DAILY Qty: 90 3RF dapagliflozin propanediol [Farxiga] 10 mg tablet 10 mg PO DAILY Qty: 90 3RF losartan 100 mg tablet 100 mg PO DAILY Qty: 90 3RF aspirin 81 mg capsule 81 mg PO DAILY Qty: 90 3RF glipizide 10 mg tablet 10 mg PO BID potassium 99 mg Tablet 99 mg PO DAILY trazodone 50 mg tablet 50 mg PO HS Referrals Follow up/Referrals: Marco Cabezas APRN [Primary Care Provider, Medical] - See instructions Clinical Impressions Clinical Impression: Non-STEMI (non-ST elevated myocardial infarction) Instructions Patient Instructions: DI for Acute Abdominal Pain Print Language Print Language: Yi Discharge ED Provider: Narendra Aguilera Adult HPI General Chief complaint: Abdominal Pain Stated complaint: abd pain, high bp, R arm purple Time Seen by Provider: 06/18/25 05:45 Mode of Arrival: Family Vehicle Source of Information: Patient Description of Symptoms (Recalled from ER Triage Doc. by RN): Epigastric Pain Pt presents to the ED with c/o epigastric abd paion that radiates to her L arm. Pt states it feels like it did when I had my heart attack . Pt denies SOA or nausea, vomiting, diarrhea. History of Present Illness HPI narrative: 84-year-old female with history of hypertension hyperlipidemia heart failure and recent NSTEMI presents for epigastric pain and pain radiates to her left arm. She reports that the left arm pain started yesterday afternoon, the epigastric pain started this morning shortly prior to arrival. She reports it feels just like when she had a heart attack. She denies any nausea vomiting shortness of breath or other significant symptoms at this time. Related Data Home Medications ?Medication ?Instructions ?Recorded ?Confirmed glipizide 10 mg tablet 10 mg PO BID 05/03/25 05/28/25 potassium 99 mg tablet 99 mg PO DAILY 05/03/25 05/28/25 trazodone 50 mg tablet 50 mg PO HS 05/04/25 05/28/25 Previous Rx's ?Medication ?Instructions ?Recorded atenolol 50 mg tablet 50 mg PO DAILY #90 tabs 05/28/25 atorvastatin 40 mg tablet 40 mg PO HS #90 tabs 05/28/25 bumetanide 1 mg tablet 1 mg PO DAILY #90 tabs 05/28/25 clopidogrel 75 mg tablet 75 mg PO DAILY #90 tabs 05/28/25 dapagliflozin propanediol 10 mg 10 mg PO DAILY #90 tabs 05/28/25 tablet (Farxiga) losartan 100 mg tablet 100 mg PO DAILY #90 tabs 05/28/25 aspirin 81 mg capsule 81 mg PO DAILY #90 caps 06/07/25 Allergies Allergy/AdvReac Type Severity Reaction Status Date / Time No Known Allergies Allergy Verified 05/28/25 08:56 [facility] Disclaimer: The information contained in this section may have been updated after the patient was seen, as this information can be updated by other users. Medical History Acute heart failure with preserved ejection fraction (HFpEF) Non-STEMI (non-ST elevated myocardial infarction) CHF (congestive heart failure) Diabetes mellitus HLD (hyperlipidemia) HTN (hypertension) Surgical History History of cardiac cath H/O knee surgery H/O shoulder surgery Hx of hysterectomy Hx of cholecystectomy Social History Smoking Status: Never smoker alcohol intake: never current occupational status: other Travel in the last 8 weeks?: None Have you lived/traveled outside [place] in past 30 days?: No Contact w/someone who lives/traveled outside US past 30 days?: No Exposure to someone with infectious disease in past 14 days?: No Do you have a fever (greater than 100.4 F or 38 C)?: No Have you tested positive for COVID-19?: No Exposed to someone with COVID-19 in past 14 days?: No Do you have a sore throat?: No Do you have a cough?: No Do you have any weakness?: No Do you have any diarrhea?: No Are you experiencing any unusual bleeding?: No Do you have any muscle aches/pain?: No Do you have any abdominal pain?: Yes Are you experiencing loss of taste or smell?: No Other Medical History Have you received the Flu Vaccine for this season: No Have you received the Pneumonia Vaccine: No ROS Obtained: Yes All systems reviewed & no additional complaints except as documented Physical Exam General General appearance: alert and in no apparent distress Head Head exam: atraumatic and normocephalic Eye Eye exam: Present normal appearance, PERRL and EOMI ENT ENT exam: Present normal oropharynx and normal external ear exam Neck Neck exam: Present normal inspection and full ROM Chest Chest inspection: Present normal inspection and symmetric chest wall rise; Absent tenderness Respiratory Respiratory exam: Present normal lung sounds bilaterally; Absent respiratory distress Cardiovascular Cardiovascular exam: Present regular rate and normal rhythm Abdominal Exam Abdominal exam: Present soft; Absent distention, tenderness or guarding Extremities Exam Extremities exam: Present normal inspection; Absent edema or joint swelling Back Exam Back exam: Present normal inspection; Absent tenderness Neurological Exam Neurological exam: Present alert and oriented X3; Absent motor sensory deficit Psychiatric Psychiatric exam: Present normal affect and normal mood Skin Skin exam: Present warm, dry and normal color Lymphatic Lymphatic Findings: no adenopathy Medical Decision Making Medical Records Medical records reviewed: Yes I reviewed the patient's medical records. Screening: Per USPSTF and CDC recommendations, given the prevalence of disease in our region, it is our hospital?s policy to screen for HIV and viral Hepatitis for all patients aged 18 and over and those with ongoing risk factors. Jesse Inquiry Pt receiving controlled substance: No Jesse was queried for this patient: No Vital Signs: 06/18/25 05:52 06/18/25 06:30 06/18/25 06:31 Temperature 97.9 F Temperature Source Oral Pulse Rate 54 L 57 L Pulse Rate [Left] 62 Respiratory Rate 16 16 15 Blood Pressure 166/67 H 172/64 H Blood Pressure [Right Arm] 165/67 H Blood Pressure Mean [Right Arm] 99 Blood Pressure Source [Right Arm] Automatic Cuff Blood Pressure Position [Right Arm] Sitting 02 Sat by Pulse Oximetry 96 98 97 Oxygen Delivery Method Room Air Lab Data Lab results reviewed: Yes I reviewed the patient's lab results. Lab Results 06/18/25 06:17: WBC 9.2, RBC 4.78, Hgb 14.2, Hct 42.1, MCV 88.1, MCH 29.7, MCHC 33.7, RDW 13.3, Plt Count 317, MPV 9.3, Neut % (Auto) 71.5, Lymph % (Auto) 21.0, [place] % (Auto) 5.5, Eos % (Auto) 1.3, Baso % (Auto) 0.4, Neut # (Auto) 6.6, Lymph # (Auto) 1.9, [place] # (Auto) 0.5, Eos # (Auto) 0.1, Baso # (Auto) 0.0, Sodium 136, Potassium 3.6, Chloride 96 L, Carbon Dioxide 34 H, Anion Gap 9.6, BUN 19 H, Creatinine 0.80, Estimated Creat Clear 54, Estimated GFR 68, Est GFR ( Amer) 83, Glucose 164 H, Calcium 9.6, Total Bilirubin 0.6, AST 40 H, ALT 26, Alkaline Phosphatase 85, Troponin I 0.74 H, Total Protein 7.6, Albumin 3.8, Globulin 3.8 H, Albumin/Globulin Ratio 1.0 L, Lipase 343 H 06/18/25 06:17 06/18/25 06:17 Orders (Tests/Meds): ED MEDICATIONS Generic Name Dose Route Start Last Admin Trade Name Freq PRN Reason Stop Dose Admin Enoxaparin Sodium 80 mg 06/18/25 07:30 Enoxaparin 80mg/0.8ml Syringe SUBCUT 07/18/25 07:29 Q12H [facility] Nitroglycerin/Dextrose 250 mls @ 3 mls/hr 06/18/25 07:30 Nitroglycerin 50mg/250ml D5w IV 07/18/25 07:29 .Q24H [facility] Protocol 10 MCG/MIN Insulin Human Lispro 0 unit 06/18/25 11:00 Humalog 100 Units/Ml 10ml Vial (Ssi) SUBCUT 07/18/25 10:59 ACHS [facility] Protocol Nitroglycerin 0.4 mg 06/18/25 06:01 06/18/25 06:17 Nitroglycerin 0.4mg Sl Tablet SL 07/18/25 06:00 0.4 mg Q5MINP PRN Administration Chest Pain Discontinued Medications Generic Name Dose Route Start Last Admin Trade Name Freq PRN Reason Stop Dose Admin Acetaminophen 1,000 mg 06/18/25 05:59 06/18/25 06:17 Acetaminophen 500mg Tab PO 06/18/25 06:00 1,000 mg ONCE ONE Administration Aspirin 324 mg 06/18/25 06:02 06/18/25 06:18 Aspirin 81mg Chewable Tablet PO 06/18/25 06:03 324 mg ONCE ONE Administration Belladonna Alkaloids 60 ml 06/18/25 05:59 06/18/25 06:17 Belladonna Alkaloids 60 Ml Ml PO 06/18/25 06:00 60 ml ONCE ONE Administration ORDERS Category Date Time Status Cardiology Consult [Consult to Cardiology] [CONS] Cons 06/18/25 07:23 Active Routine CXR --portable [XR chest portable] Stat Exams 06/18/25 05:59 Completed CBC w/Auto Diff [Complete Blood Count Auto Diff] Stat Lab 06/18/25 06:17 Completed CMP [Comprehensive Metabolic Panel] Stat Lab 06/18/25 06:17 Completed Complete Blood Count Auto Diff AMLAB Lab 06/19/25 06:00 Ordered Comprehensive Metabolic Panel AMLAB Lab 06/19/25 06:00 Ordered D-Dimer Stat Lab 06/18/25 06:17 Received HIV Combo Stat Lab 06/18/25 06:17 Received Hepatitis C Ab Qual. W/ RFX Stat Lab 06/18/25 06:17 Received Lipase Stat Lab 06/18/25 06:17 Completed Magnesium AMLAB Lab 06/19/25 06:00 Ordered Troponin I Q3H Lab 06/18/25 06:17 Completed Troponin I Q3H Lab 06/18/25 09:00 Ordered ECG Data Tracing #1: I reviewed this ECG and interpreted as documented below: Sinus bradycardia, rate of 58, no significant ST changes. ECG initial impression date: 06/18/25 ECG initial impression time: 05:49 HEART Score History (anamnesis): Highly suspicious ECG: Non-specific disturbance Age: >65 years Risk factors: Atherosclerosis history Troponin: > 3x normal limit HEART Score: 9 Medical Decision Narrative: 84-year-old female with history of hypertension hyperlipidemia diabetes, recent NSTEMI with cardiac catheterization presents for epigastric discomfort and left arm pain that she reports is the same as when she had a heart attack in April. History was obtained via interactive discussion with patient, family, chart review. On arrival, patient is [afebrile, hemodynamically stable, satting appropriately, alert, oriented x4, GCS 15], moving all extremities spontaneously. Full physical exam performed and significant for no significant physical exam abnormalities Differential includes but is not limited to ACS, PE, reflux, esophageal spasm, musculoskeletal pain, pancreatitis, gastroenteritis. Patient was given full dose aspirin, nitroglycerin and a GI cocktail, Tylenol for symptomatic management and correction of underlying abnormalities. Workup initiated including CBC CMP troponin D-dimer chest x-ray EKG. On re-evaluation, patient reports mild symptomatic improvement. Blood pressure now 130 systolic Laboratory workup independently interpreted by me and significant for no significant leukocytosis, marked elevation in troponin, 0.74.. Imaging independently interpreted by me and significant for clear lungs bilaterally. See radiology read for full review of final results. EKG independently interpreted by me and significant for sinus bradycardia, not markedly changed from prior, does have new T wave inversion in lead V3. Given patient history, exam and workup, patient's presentation most likely represents NSTEMI. Interactive succussion was had with cardiology on-call. They recommend Lovenox and nitro drip for chest pain, they plan to cath today. Interactive discussion was had with the hospitalist on-call for admission for NSTEMI. Procedures Risk/Benefits of Procedure(s) Were Explained: Yes Critical Care Critical Care Time Critical Care Time: Yes Attestation: On 06/18/25, the high probability of a clinically significant, sudden or life threatening deterioration of the following system(s) cardiac required my full and direct attention, intervention and personal management. The time I documented below is in addition to time spent performing reported procedures but includes the following listed in this critical care notation. Total Time Total Critical Care Time: 45
[2025-06-18] MEDS: BELLADONNA ALKALOIDS 60 ML ML PO (06:17)
[2025-06-18] MEDS: NITROGLYCERIN 0.4MG SL TABLET 0.4 MG SL (06:17)
[2025-06-18] MEDS: ACETAMINOPHEN 500MG TAB 1000 MG PO (06:17)
[2025-06-18] MEDS: ASPIRIN 81MG CHEWABLE TABLET 324 MG PO (06:18)
[2025-06-18 06:25] LABS: Hematocrit 42.1 % (37.0-47.0); Hemoglobin 14.2 g/dL (12.2-16.2); Immature Granulocytes % 0.3 %; Mean Corpuscular HGB Conc 33.7 g/dL (31.8-35.4); Mean Corpuscular Hemoglobin 29.7 pg (27.0-31.2); Mean Corpuscular Volume 88.1 fl (81-99); Nucleated Red Blood Cells % 0 %; Platelet Count 317 K/mm3 (142-424); Red Blood Count 4.78 M/mm3 (4.20-5.40); Red Cell Distribution Width-SD 43.0 fL; White Blood Count 9.2 K/mm3 (4.8-10.8)
[2025-06-18 06:34] LABS: Albumin Level 3.8 g/dl (3.5-5.0); Chloride 96 mmol/L (98-107); Potassium 3.6 mmoL/L (3.5-5.1); Sodium 136 mmol/L (136-145)
[2025-06-18 06:37] LABS: Alanine Aminotransferase 26 U/L (12-78); Albumin/Globulin Ratio 1.0 (1.1-1.8); Alkaline Phosphatase 85 U/L (38-126); Anion Gap 9.6 mEq/L (5-15); Aspartate Amino Transferase 40 U/L (14-36); Bilirubin,Total 0.6 mg/dl (0.2-1.3); Blood Urea Nitrogen 19 mg/dl (7-17); Carbon Dioxide 34 mmol/L (22.0-30.0); Creatinine Clearance Estimated 54 mL/min (50-200); Creatinine,Serum 0.80 mg/dl (0.52-1.04); Estimated Glomerular Filt Rate 68 ml/min (>60); GFR (African American) 83 ML/MIN (>60); Globulin 3.8 g/dL (1.3-3.2); Lipase 343 U/L (23-300); Total Protein,Serum 7.6 g/dl (6.3-8.2)
[2025-06-18 06:38] LABS: Calcium 9.6 mg/dl (8.4-10.2); Glucose 164 mg/dl (74-100)
[2025-06-18 06:59] LABS: Troponin I 0.74 ng/ml (0.00-0.034)
--- NOTE | 2025-06-18 06:59 | PC.NURSE ---
Addendum entered by Aneta Gonzalez RN 06/18/25 07:00: Physician Dr. Narendra Aguilera Notified Original Note: Critical Trop called by lab, 0.74.
--- NOTE | 2025-06-18 07:12 | PC.NURSE ---
pages at this time.
--- NOTE | 2025-06-18 07:26 | EXP.HP ---
History of Present Illness *Admission Date: 06/18/25 *Reason for visit:: NSTEMI *History of present illness: Ms. Jones is an 84-year-old female who presented to the emergency room this morning with complaints of epigastric abdominal pain radiating to her left arm. Denies nausea, vomiting, diarrhea, shortness of breath. She stated to the ED physician it feels like I did when I had my heart attack . Extensive workup was done and she was found to have markedly elevated troponins at 0.14 trending to 1.13. Cardiology was consulted and they recommended a nitroglycerin drip, full dose aspirin, GI cocktail. She recently had a [facility] with stent placement to the LAD in April 2025. EKG showed sinus bradycardia, no acute ST elevation. Vital signs remained stable. [facility] Disclaimer: The information contained in this section may have been updated after the patient was seen, as this information can be updated by other users. Medical History Acute heart failure with preserved ejection fraction (HFpEF) Non-STEMI (non-ST elevated myocardial infarction) CHF (congestive heart failure) Diabetes mellitus HLD (hyperlipidemia) HTN (hypertension) Surgical History History of cardiac cath H/O knee surgery H/O shoulder surgery Hx of hysterectomy Hx of cholecystectomy Family History Other No significant family history Social History Smoking Status: Never smoker alcohol intake: never current occupational status: other Travel in the last 8 weeks?: None Have you lived/traveled outside US in past 30 days?: No Contact w/someone who lives/traveled outside US past 30 days?: No Exposure to someone with infectious disease in past 14 days?: No Do you have a fever (greater than 100.4 F or 38 C)?: No Have you tested positive for COVID-19?: No Exposed to someone with COVID-19 in past 14 days?: No Do you have a sore throat?: No Do you have a cough?: No Do you have any weakness?: No Do you have any diarrhea?: No Are you experiencing any unusual bleeding?: No Do you have any muscle aches/pain?: No Do you have any abdominal pain?: Yes Are you experiencing loss of taste or smell?: No Other Medical History Have you received the Flu Vaccine for this season: No Have you received the Pneumonia Vaccine: No Review of Systems Review of Systems Review of systems:: pertinent systems reviewed and negative unless documented below Constitutional Constitutional: Denies fatigue, Denies fever(s) and Denies headache(s) ENT Ears, Nose, Mouth, and Throat: Denies headache(s) *Cardiovascular Cardiovascular: Reports chest pain, Reports chest pain at rest, Denies dyspnea, Denies edema and Denies lightheadedness *Respiratory Respiratory: Denies cough and Denies dyspnea *Gastrointestinal Gastrointestinal: Reports abdominal pain (Epigastric), Denies constipation, Denies nausea and Denies vomiting *Neurologic Neurologic: Denies headache(s) Endocrine Endocrine: Denies fatigue Meds Home Medications and Allergies Home Medications ?Medication ?Instructions ?Recorded ?Confirmed ?Type glipizide 10 mg tablet 10 mg PO BID 05/03/25 06/18/25 History potassium 99 mg tablet 99 mg PO DAILY 05/03/25 06/18/25 History trazodone 50 mg tablet 50 mg PO HS 05/04/25 06/18/25 History atorvastatin 40 mg tablet 40 mg PO HS #90 tabs 05/28/25 06/18/25 Rx bumetanide 1 mg tablet 1 mg PO DAILY #90 tabs 05/28/25 06/18/25 Rx clopidogrel 75 mg tablet 75 mg PO DAILY #90 tabs 05/28/25 06/18/25 Rx dapagliflozin propanediol 10 mg 10 mg PO DAILY #90 tabs 05/28/25 05/28/25 Rx tablet (Farxiga) losartan 100 mg tablet 100 mg PO DAILY #90 tabs 05/28/25 06/18/25 Rx aspirin 81 mg capsule 81 mg PO DAILY #90 caps 06/07/25 06/18/25 Rx atenolol 50 mg tablet 50 mg PO BID 06/18/25 06/18/25 History cyanocobalamin (B12)-cobamamide 1,000 tino sublingual DAILY 06/18/25 06/18/25 History 5,000 mcg-100 mcg sublingual lozenge (B12) flaxseed oil 1,300 mg capsule 1,300 mg PO DAILY 06/18/25 06/18/25 History multivitamin with minerals-iron 15 ml PO DAILY 06/18/25 06/18/25 History fumarate 9 mg iron/15 mL oral liquid (Multi Vitamin) New Prescriptions to Start Prescriptions: Allergies Allergy/AdvReac Type Severity Reaction Status Date / Time No Known Allergies Allergy Verified 06/18/25 09:32 Exam Data for Last 24 hours Vital signs and Labs for Last 24 Hours: Temp Pulse Resp BP Pulse Ox O2 Del Method 97.9 F 57 L 15 172/64 H 97 Room Air 06/18/25 05:52 06/18/25 06:31 06/18/25 06:31 06/18/25 06:31 06/18/25 06:31 06/18/25 05:52 Laboratory Results - last 24 hr 06/18/25 06:17: WBC 9.2, RBC 4.78, Hgb 14.2, Hct 42.1, MCV 88.1, MCH 29.7, MCHC 33.7, RDW 13.3, Plt Count 317, MPV 9.3, Neut % (Auto) 71.5, Lymph % (Auto) 21.0, Jerome % (Auto) 5.5, Eos % (Auto) 1.3, Baso % (Auto) 0.4, Neut # (Auto) 6.6, Lymph # (Auto) 1.9, Jerome # (Auto) 0.5, Eos # (Auto) 0.1, Baso # (Auto) 0.0, Sodium 136, Potassium 3.6, Chloride 96 L, Carbon Dioxide 34 H, Anion Gap 9.6, BUN 19 H, Creatinine 0.80, Estimated Creat Clear 54, Estimated GFR 68, Est GFR ( Amer) 83, Glucose 164 H, Calcium 9.6, Total Bilirubin 0.6, AST 40 H, ALT 26, Alkaline Phosphatase 85, Troponin I 0.74 H, Total Protein 7.6, Albumin 3.8, Globulin 3.8 H, Albumin/Globulin Ratio 1.0 L, Lipase 343 H I & O for Last 24 hours: Intake & Output 06/15/25 06/16/25 06/17/25 06/18/25 23:59 23:59 23:59 23:59 Weight 81.647 kg Constitutional Constitutional: no acute distress *Routine HEENT Exam Head: Present normocephalic Eye: Present EOMI and PERRL ENT: Present mucous membranes moist *Routine Neck Exam Neck: Present supple; Absent lymphadenopathy *Routine Respiratory Exam Respiratory: Present CTA bilaterally *Routine Cardiovascular Exam Cardiovascular: Present RRR *Routine Abdominal Exam Abdominal: Present soft and normoactive bowel sounds; Absent tenderness *Routine Rectal Exam Rectal:: deferred *Routine Genitalia Exam Genitalia:: deferred *Routine Extremities Exam Extremities: Absent cyanosis, clubbing or edema *Routine Skin Exam Skin: Present warm; Absent rash *Routine Neurological Exam Neurological: Present alert and oriented X3 Assessment and Plan *Assessment and plan Plan Ms. Oly Jones is an 84-year-old female who presented to the emergency department today with complaints of epigastric pain that radiated to her left arm. She stated that this felt like it did when she had her heart attack. Patient had a NSTEMI in April with successful stenting to the LAD. She does have a primary medical history of hypertension, hyperlipidemia, diabetes, recent cardiac cath with stent. Patient denies nausea, vomiting, shortness of breath. Cardiology was consulted from the emergency department who recommended placing patient on a nitroglycerin drip and admission for further workup and management of her symptoms. CBC, CMP were overall unremarkable. No anemia, no leukocytosis, no electrolyte abnormalities, normal kidney function. Chest x-ray showed no acute findings, EKG showed sinus bradycardia. After discussion with cardiology and the ER physician, I agreed to admit the patient for further assessment and management of her symptoms. Plan of care is as follows: #Elevated troponin #Unstable angina #Hypertension ? Patient was admitted with epigastric pain that radiated to her left arm. Denies substernal chest pain, shortness of breath, nausea, vomiting. Patient was started on nitroglycerin drip, chest pain resolved. ? Patient plans to go for [facility] today for further evaluation of her elevated troponin. Initial troponin 0.14 trending upward to 1.13. ? EKG sinus bradycardia, no ST elevation noted. Patient placed in stepdown for frequent monitoring of BP and heart rate/rhythm. ? Continue atenolol 50 mg twice daily, Plavix 75 mg daily, aspirin 81 mg daily, losartan 100 mg daily. ? Personally reviewed chest x-ray, unremarkable; no consolidations, no pleural effusion, no pulmonary edema. ? CBC, CMP, magnesium ordered for the a.m. #HFpEF ? Patient has known history of HFpEF, LVEF is 60%. Most recent echo 05/03/2025. ? Patient appears euvolemic on assessment, lungs CTA, no edema noted. Will continue Bumex 1 mg daily. #Hyperlipidemia ? Resume atorvastatin 40 mg at bedtime. DNR/DNI N.p.o. Cardiology consulted VTE?will be heparinized in [employer]
[2025-06-18 07:48] LABS: Hepatitis C Ab Qual. W/ RFX NEGATIVE (Negative)
--- NOTE | 2025-06-18 07:49 | PC.NURSE ---
PT ADMITTED STEP-DOWN, ROOM 263. ALL STAFF NOTIFIED
[2025-06-18] MEDS: NITROGLYCERIN IN 5 % DEXTROSE 250 ML 1.5 MG IV (07:52)
--- NOTE | 2025-06-18 08:50 | PC.NURSE ---
pt arrived to ICU at this time.
--- NOTE | 2025-06-18 09:42 | HMH.PTEV ---
Physical Therapy Evaluation Rehab PT IP Evaluation Start: 06/18/25 07:23 Freq: ONCE Status: Active Protocol: Document 06/18/25 09:40 [id number] (Rec: 06/18/25 09:42 PHOTATIANA [id number]) Subjective/History History History 84-year-old female with history of hypertension hyperlipidemia heart failure and recent NSTEMI presents for epigastric pain and pain radiates to her left arm. She reports that the left arm pain started yesterday afternoon, the epigastric pain started this morning shortly prior to arrival. She reports it feels just like when she had a heart attack. She denies any nausea vomiting shortness of breath or other significant symptoms at this time. Pt reports she lives essentially lives alone, [address] the home, and she is generally independent with all mobility without AD. Subjective Subjective Pt reports she feels good at this time and has no current c/o. Agrees to mobility assessment. [facility] How much help from another person do you currently need... Turning from your None back to your side while in a flat bed without using bedrails? Moving from lying on None back to sitting on the side of a flat bed without using bedrails? Moving to and from a None bed to a chair ( including a wheelchair)? Standing up from a None chair using your arms? (e.g., wheelchair, bedside chair) Walking in hospital None room? Climbing 3-5 steps None with a railing? Mobility Score 24 Mobility Level [facility] Mobility Walk 250 feet or more Mobility Calculator Rehab PT IP Eval Objective Appearance Patient Behavior Appropriate Patient Orientation Person,Place,Time Difficulty following none instructions Speech Pattern Clear Ambulation Patient Able to Yes Ambulate Ambulation Observation IP General Gait No Deviations/Normal Pattern Observation Ambulation Distance 50 (feet) Ambulation Assistive None Device Ambulation Ability Independent Balance Ability to Arise Able, uses arms to help Sitting Balance Steady, safe Standing Balance Steady, wide stance Dynamic Sitting Good Balance Ability Dynamic Standing Good Balance Ability Transfers Bed Transfer Ability Independent Chair Transfer Independent Ability Sit to Stand Bed Independent Transfer Ability Sit to Stand Chair Independent Transfer Ability Rehab PT IP prob,goals,plan Problems Date of Evaluation: 06/18/25 Discharge Plan PT Discharge Plan Pt is currently appropriate to return home once medically stable for d/c. No acute skilled therapy needs at this time. Eval Complexity Eval Charge Codes 45784 - High Complexity PHYSICIAN CERTIFICATION: I certify the specified therapy services for lOy Jones are required, authorized, and reviewed every 30 days.
--- NOTE | 2025-06-18 09:44 | HMH.OTEV ---
OT Inpatient Evaluation Rehab OT IP Evaluation Start: 06/18/25 07:23 Freq: ONCE Status: Active Protocol: Document 06/18/25 09:41 SHAUN (Rec: 06/18/25 09:44 [facility] [id number] Rehab OT IP Assessment Subjective History Pt oriented x 4 on arrival. Pt agreeable to engage in therapy session. Pt's family present and supportive during therapy evaluation. Pt admitted on 06/18/25 due to chest pain. History and physical: 84-year-old female with history of hypertension hyperlipidemia heart failure and recent NSTEMI presents for epigastric pain and pain radiates to her left arm. She reports that the left arm pain started yesterday afternoon, the epigastric pain started this morning shortly prior to arrival. She reports it feels just like when she had a heart attack. She denies any nausea vomiting shortness of breath or other significant symptoms at this time. Subjective Pt reports prior to being in the hospital, she lived at home alone. Pt claims she is normally independent with all ADLs and IADLs. She does not use any type of AE during functional transfers. She also still drives. Objective Patient Orientation Person,Place,Birthday,Month Right Upper WFL Extremity Gross ROM Left Upper Extremity WFL Gross ROM Bed Mobility bed mobility-scooting,bed mobility - supine/sit Assist Level Supervision/Stand by Transfer Training Sit/Stand Transfer Assist Level Supervision/Stand by Lower Body Dressing Standby Assistance Ability Rehab OT IP prob,goals,plan Problems Date of Evaluation: 06/18/25 Rehab Potential Rehab Potential Innapropriate for Skilled Therapy Discharge Plan OT Discharge Plan Pt appears to be at her baseline with functional transfers and ADL independence. Pt can return home once she is medially stable per physician. Eval Complexity Eval Charge Codes 10934 - Moderate Complexity PHYSICIAN CERTIFICATION: I certify the specified therapy services for Oly Jones are required, authorized, and reviewed every 30 days.
--- NOTE | 2025-06-18 10:10 | PC.NURSE ---
ADMISSIONS AWARE OF STATUS CHANGE TO STEPDOWN ON PT.
--- NOTE | 2025-06-18 10:30 | PC.NURSE ---
NERI DE LEÓN AT BEDSIDE
[2025-06-18 10:34] LABS: D-Dimer 0.89 ug/mL (0.0-0.5)
[2025-06-18 10:40] LABS: Troponin I 1.13 ng/ml (0.00-0.034)
--- NOTE | 2025-06-18 10:48 | PC.NURSE ---
HEART CATH CONSENT COMPLETED AND PT IS CLIPPED AND PREPPED FOR DONATIONS ATTENDANT.
--- NOTE | 2025-06-18 13:06 | EXP.CARD.CON ---
History of Present Illness History of Present Illness Consult date: 06/18/25 Requesting physician: Norman Hurst Consult reason: chest pain Chief complaint: Chest pain History of present illness: 84-year-old white female established patient in our office with a history of NSTEMI status post LAD stenting in April of this year. Also with history of HFpEF, diabetes with A1c 8.5 and questionable sleep apnea. Patient reports she had been feeling significantly better following her recent stents and was ambulating without symptoms. Yesterday she began to feel gradual onset of epigastric and substernal chest discomfort with radiation down her left arm which is similar to what she experienced during her AR so she presented for evaluation. In the ER she was found to have EKG with sinus rhythm and old lateral infarct but no acute ST elevations. First troponin 0.74, subsequent 1.13. Patient admitted for further workup and management. She is currently asymptomatic. [facility] Disclaimer: The information contained in this section may have been updated after the patient was seen, as this information can be updated by other users. Medical History Acute heart failure with preserved ejection fraction (HFpEF) Non-STEMI (non-ST elevated myocardial infarction) CHF (congestive heart failure) Diabetes mellitus HLD (hyperlipidemia) HTN (hypertension) Surgical History History of cardiac cath H/O knee surgery H/O shoulder surgery Hx of hysterectomy Hx of cholecystectomy Family History Other No significant family history Social History Smoking Status: Never smoker alcohol intake: never current occupational status: other Travel in the last 8 weeks?: None Have you lived/traveled outside US in past 30 days?: No Contact w/someone who lives/traveled outside US past 30 days?: No Exposure to someone with infectious disease in past 14 days?: No Do you have a fever (greater than 100.4 F or 38 C)?: No Have you tested positive for COVID-19?: No Exposed to someone with COVID-19 in past 14 days?: No Do you have a sore throat?: No Do you have a cough?: No Do you have any weakness?: No Do you have any diarrhea?: No Are you experiencing any unusual bleeding?: No Do you have any muscle aches/pain?: No Do you have any abdominal pain?: Yes Are you experiencing loss of taste or smell?: No Review of Systems Constitutional Constitutional: Denies fatigue and Denies weakness Eyes Eyes: Denies loss of vision ENT Ears, Nose, Mouth, and Throat: Denies hearing loss and Denies vertigo *Cardiovascular Cardiovascular: Reports chest pain, Denies dyspnea and Denies syncope *Respiratory Respiratory: Denies cough and Denies dyspnea *Gastrointestinal Gastrointestinal: Denies change in stool character, Denies nausea and Denies vomiting *Musculoskeletal Musculoskeletal: Denies muscle weakness Integumentary/Breasts Skin/Breast: Denies changing lesions *Neurologic Neurologic: Denies loss of vision, Denies syncope, Denies vertigo and Denies weakness Endocrine Endocrine: Denies fatigue Exam Data for Last 24 hours Vital signs and Labs for Last 24 Hours: Temp Pulse Resp BP Pulse Ox O2 Del Method 98.2 F 51 L 14 130/61 95 Room Air 06/18/25 08:46 06/18/25 12:00 06/18/25 12:00 06/18/25 12:00 06/18/25 12:00 06/18/25 11:10 Laboratory Results - last 24 hr 06/18/25 06:17: WBC 9.2, RBC 4.78, Hgb 14.2, Hct 42.1, MCV 88.1, MCH 29.7, MCHC 33.7, RDW 13.3, Plt Count 317, MPV 9.3, Neut % (Auto) 71.5, Lymph % (Auto) 21.0, Phelps % (Auto) 5.5, Eos % (Auto) 1.3, Baso % (Auto) 0.4, Neut # (Auto) 6.6, Lymph # (Auto) 1.9, Phelps # (Auto) 0.5, Eos # (Auto) 0.1, Baso # (Auto) 0.0, D-Dimer 0.89 H, Sodium 136, Potassium 3.6, Chloride 96 L, Carbon Dioxide 34 H, Anion Gap 9.6, BUN 19 H, Creatinine 0.80, Estimated Creat Clear 54, Estimated GFR 68, Est GFR ( Amer) 83, Glucose 164 H, Calcium 9.6, Total Bilirubin 0.6, AST 40 H, ALT 26, Alkaline Phosphatase 85, Troponin I 0.74 H, Total Protein 7.6, Albumin 3.8, Globulin 3.8 H, Albumin/Globulin Ratio 1.0 L, Lipase 343 H, HCV Ab SKIP w/Rflx PCR Qn Negative, HIV Ag/Ab Combo Qual Negative 06/18/25 09:10: Troponin I 1.13 H I & O for Last 24 hours: Intake & Output 06/15/25 06/16/25 06/17/25 06/18/25 23:59 23:59 23:59 23:59 Intake Total 0.575 / 0.575 Balance 0.575 / 0.575 Weight 180 lb Meds Home Medications and Allergies Home Medications ?Medication ?Instructions ?Recorded ?Confirmed ?Type glipizide 10 mg tablet 10 mg PO BID 05/03/25 06/18/25 History potassium 99 mg tablet 99 mg PO DAILY 05/03/25 06/18/25 History trazodone 50 mg tablet 50 mg PO HS 05/04/25 06/18/25 History atorvastatin 40 mg tablet 40 mg PO HS #90 tabs 05/28/25 06/18/25 Rx bumetanide 1 mg tablet 1 mg PO DAILY #90 tabs 05/28/25 06/18/25 Rx clopidogrel 75 mg tablet 75 mg PO DAILY #90 tabs 05/28/25 06/18/25 Rx dapagliflozin propanediol 10 mg 10 mg PO DAILY #90 tabs 05/28/25 05/28/25 Rx tablet (Farxiga) losartan 100 mg tablet 100 mg PO DAILY #90 tabs 05/28/25 06/18/25 Rx aspirin 81 mg capsule 81 mg PO DAILY #90 caps 06/07/25 06/18/25 Rx atenolol 50 mg tablet 50 mg PO BID 06/18/25 06/18/25 History cyanocobalamin (B12)-cobamamide 1,000 tino sublingual DAILY 06/18/25 06/18/25 History 5,000 mcg-100 mcg sublingual lozenge (B12) flaxseed oil 1,300 mg capsule 1,300 mg PO DAILY 06/18/25 06/18/25 History multivitamin with minerals-iron 15 ml PO DAILY 06/18/25 06/18/25 History fumarate 9 mg iron/15 mL oral liquid (Multi Vitamin) New Prescriptions to Start Prescriptions: Allergies Allergy/AdvReac Type Severity Reaction Status Date / Time No Known Allergies Allergy Verified 06/18/25 09:32 Assessment and Plan *Assessment and plan (1) Non-STEMI (non-ST elevated myocardial infarction): Status: Acute Category: Medical Code(s): I21.4 - Non-ST elevation (NSTEMI) myocardial infarction (2) CAD (coronary artery disease): Status: Acute Category: Medical Code(s): I25.10 - Atherosclerotic heart disease of [place] coronary artery without angina pectoris (3) Diabetes mellitus: Status: Acute Qualifiers: Diabetes mellitus complication status: without complication Diabetes mellitus terminal carman insulin use: without fci use Diabetes mellitus type: type 2 Qualified Code(s): E11.9 - Type 2 diabetes mellitus without complications Category: Medical Code(s): E11.9 - Type 2 diabetes mellitus without complications (4) HTN (hypertension): Status: Acute Qualifiers: Hypertension type: primary hypertension Qualified Code(s): I10 - Essential (primary) hypertension Category: Medical Code(s): I10 - Essential (primary) hypertension Plan CAD/NSTEMI - pt had NTSTEMI and LAD stenting 04/2025 - now back with recurrence of symptoms and rising serial trop - no ST elevations - symptoms now stable - pt agreeable to repeat [facility] - Cont Lovenox, DAPT, BB, Statin, Arb HFpEF - ECHO 05/04/25 - nml bi-v function, biatrial dilation, elevated RVSP - cont Farxiga Htn - resume home meds DM-II - resume home meds 06/18: CV stable. [facility] today, further plans pending results. Addendum: Widely patent stent, no new disease. Add Ranexa 500 twice daily and sublingual nitroglycerin as needed chest pain. CV stable for DC home.
[2025-06-18] MEDS: CLOPIDOGREL 75MG TAB 75 MG PO (13:30)
[2025-06-18] MEDS: HEPARIN 1,000 UNITS/ML 10ML VIAL (CATH LAB) 5000 UNIT IV (14:30)
[2025-06-18] MEDS: LIDOCAINE 1% 10ML MDV 10 ML IJ (14:30)
[2025-06-18] MEDS: VERAPAMIL 2.5MG/ML 2ML VIAL 2.5 MG IV (14:30)
[2025-06-18] MEDS: HEPARIN 1,000 UNITS/500ML NS (CATH LAB) 3000 UNIT IV (14:30)
[2025-06-18] MEDS: 0.9 % SODIUM CHLORIDE 500 ML 25 ML IV (14:31)
[2025-06-18] MEDS: NITROGLYCERIN 800MCG/8ML SYR (CATH LAB) 800 MCG IA (14:31)
[2025-06-18] MEDS: MIDAZOLAM HCL 1MG/ML 5ML VIAL 1 MG IV ×2 (14:40→14:55)
--- NOTE | 2025-06-18 15:00 | PC.NURSE ---
RECEIVED REPORT FROM WILLIAM NAVARRO. TRACY NITRO IP. CATH SITE IS RADIAL AND PT DIDN'T RECEIVE ANY STENTS.
[2025-06-18] MEDS: IOPAMIDOL-370 (76%);100ML BOTTLE 70 ML IV (15:24)
--- NOTE | 2025-06-18 15:26 | P.HPDS_ITS ---
<Statement entered by Saul Mtz MD - 06/18/25 16:05> Rounded on patient after nurse practitioner. Personally examined and interviewed patient. Agree with exam findings and care plan as documented. General Admission date:: 06/18/25 Discharge date: 06/18/25 *Admission Date: 06/18/25 *Chief complaint: NSTEMI *History of present illness: Ms. Jones is an 84-year-old female who presented to the emergency room this morning with complaints of epigastric abdominal pain radiating to her left arm. Denies nausea, vomiting, diarrhea, shortness of breath. She stated to the ED physician it feels like I did when I had my heart attack . Extensive workup was done and she was found to have markedly elevated troponins at 0.14 trending to 1.13. Cardiology was consulted and they recommended a nitroglycerin drip, full dose aspirin, GI cocktail. She recently had a [facility] with stent placement to the LAD in April 2025. EKG showed sinus bradycardia, no acute ST elevation. Vital signs remained stable. [facility] Disclaimer: The information contained in this section may have been updated after the patient was seen, as this information can be updated by other users. Medical History Acute heart failure with preserved ejection fraction (HFpEF) Non-STEMI (non-ST elevated myocardial infarction) CHF (congestive heart failure) Diabetes mellitus HLD (hyperlipidemia) HTN (hypertension) Surgical History History of cardiac cath H/O knee surgery H/O shoulder surgery Hx of hysterectomy Hx of cholecystectomy Family History Other No significant family history Social History Smoking Status: Never smoker alcohol intake: never current occupational status: other Travel in the last 8 weeks?: None Other Medical History Have you received the Flu Vaccine for this season: Yes Have you received the Pneumonia Vaccine: Yes Review of Systems Constitutional Constitutional: Denies fatigue, Denies headache(s) and Denies weakness Eyes Eyes: Denies loss of vision ENT Ears, Nose, Mouth, and Throat: Denies headache(s) and Denies vertigo *Cardiovascular Cardiovascular: Denies dyspnea and Denies syncope *Respiratory Respiratory: Denies cough and Denies dyspnea *Gastrointestinal Gastrointestinal: Denies change in stool character, Denies nausea and Denies vomiting *Musculoskeletal Musculoskeletal: Denies muscle weakness Integumentary/Breasts Skin/Breast: Denies changing lesions *Neurologic Neurologic: Denies headache(s), Denies loss of vision, Denies syncope, Denies vertigo and Denies weakness Endocrine Endocrine: Denies fatigue Exam Data for Last 24 hours Vital signs and Labs for Last 24 Hours: Temp Pulse Resp BP Pulse Ox O2 Del Method 98.2 F 60 20 155/90 H 95 Room Air 06/18/25 08:46 06/18/25 15:10 06/18/25 15:10 06/18/25 15:10 06/18/25 15:10 06/18/25 13:15 Laboratory Results - last 24 hr 06/18/25 06:17: WBC 9.2, RBC 4.78, Hgb 14.2, Hct 42.1, MCV 88.1, MCH 29.7, MCHC 33.7, RDW 13.3, Plt Count 317, MPV 9.3, Neut % (Auto) 71.5, Lymph % (Auto) 21.0, [place] % (Auto) 5.5, Eos % (Auto) 1.3, Baso % (Auto) 0.4, Neut # (Auto) 6.6, Lymph # (Auto) 1.9, [place] # (Auto) 0.5, Eos # (Auto) 0.1, Baso # (Auto) 0.0, D-Dimer 0.89 H, Sodium 136, Potassium 3.6, Chloride 96 L, Carbon Dioxide 34 H, Anion Gap 9.6, BUN 19 H, Creatinine 0.80, Estimated Creat Clear 54, Estimated GFR 68, Est GFR ( Amer) 83, Glucose 164 H, Calcium 9.6, Total Bilirubin 0.6, AST 40 H , ALT 26, Alkaline Phosphatase 85, Troponin I 0.74 H, Total Protein 7.6, Albumin 3.8, Globulin 3.8 H, Albumin/Globulin Ratio 1.0 L, Lipase 343 H, HCV Ab SKIP w/Rflx PCR Qn Negative, HIV Ag/Ab Combo Qual Negative 06/18/25 09:10: Troponin I 1.13 H I & O for Last 24 hours: Intake & Output 06/15/25 06/16/25 06/17/25 06/18/25 23:59 23:59 23:59 23:59 Intake Total 0.575 / 0.575 Balance 0.575 / 0.575 Weight 81.647 kg Constitutional Constitutional: no acute distress *Routine HEENT Exam Head: Present normocephalic Eye: Present EOMI and PERRL ENT: Present mucous membranes moist *Routine Neck Exam Neck: Present supple; Absent lymphadenopathy *Routine Respiratory Exam Respiratory: Present CTA bilaterally *Routine Cardiovascular Exam Cardiovascular: Present RRR *Routine Abdominal Exam Abdominal: Present soft and normoactive bowel sounds; Absent tenderness *Routine Rectal Exam Rectal:: deferred *Routine Genitalia Exam Genitalia:: deferred *Routine Extremities Exam Extremities: Absent cyanosis, clubbing or edema *Routine Skin Exam Skin: Present warm; Absent rash *Routine Neurological Exam Neurological: Present alert and oriented X3 Meds Home Medications and Allergies Home Medications ?Medication ?Instructions ?Recorded ?Confirmed ?Type glipizide 10 mg tablet 10 mg PO BID 05/03/25 History potassium 99 mg tablet 99 mg PO DAILY 05/03/25 0803/09 History trazodone 50 mg tablet 50 mg PO HS 05/04/25 5 History atorvastatin 40 mg tablet 40 mg PO HS #90 tabs 5 06/18/25 Rx bumetanide 1 mg tablet 1 mg PO DAILY #90 tabs 05/2806/18/25 Rx clopidogrel 75 mg tablet 75 mg PO DAILY #90 tabs 05/1506/18/25 Rx dapagliflozin propanediol 10 mg 10 mg PO DAILY #90 tab s 05/28/25 05/28/25 Rx tablet (Farxiga) losartan 100 mg tablet 100 mg PO DAILY #90 tabs 06/18/25 Rx aspirin 81 mg capsule 81 mg PO DAILY #90 caps 05/1606/18/25 Rx atenolol 50 mg tablet 50 mg PO BID 06/18/25 History cyanocobalamin (B12)-cobamamide 1,000 tino sublingual D AILY 06/18/25 06/18/25 History 5,000 mcg-100 mcg sublingual lozenge (B12) dapagliflozin propanediol 10 mg 10 mg PO DAILY 30 days #30 tabs 06/18/25 Rx tablet (Farxiga) flaxseed oil 1,300 mg capsule 1,300 mg PO DAILY 06/18/25 History multivitamin with minerals-iron 15 ml PO DAILY 5 06/18/25 History fumarate 9 mg iron/15 mL oral liquid (Multi Vitamin) nitroglycerin 0.4 mg sublingual 0.4 mg sublingual Q5M PRN chest 06/18/25 Rx tablet pain #30 tabs ranolazine 500 mg tablet,extended 500 mg PO BID #60 ta bs 06/18/25 Rx release,12 hr New Prescriptions to Start Prescriptions: dapagliflozin propanediol [Farxiga] Silvia Terrazas nitroglycerin Silvia Terrazas ranolazine Silvia Terrazas Allergies Allergy/AdvReac Type Severity Reaction Status Date / Time No Known Allergies Allergy Verified 06/18/25 09:32 Hospital Course Hospital Course Hospital Course: Ms. Oly Jones is an 84-year-old female who presented to the emergency department today with complaints of epigastric pain that radiated to her left arm. She stated that this felt like it did when she had her heart attack. Patient had a NSTEMI in April with successful stenting to the LAD. She does have a primary medical history of hypertension, hyperlipidemia, diabetes, recent cardiac cath with stent. Patient denies nausea, vomiting, shortness of breath. Cardiology was consulted from the emergency department who recommended placing patient on a nitroglycerin drip and admission for further workup and management of her symptoms. CBC, CMP were overall unremarkable. No anemia, no leukocytosis, no electrolyte abnormalities, normal kidney function. Chest x-ray showed no acute findings, EKG showed sinus bradycardia. After discussion with cardiology and the ER physician, I agreed to admit the patient for further assessment and management of her symptoms. Plan of care is as follows: #Elevated troponin #Unstable angina #Hypertension ? Patient was admitted with epigastric pain that radiated to her left arm, which has resolved. Denies substernal chest pain, shortness of breath, nausea, vomiting. Patient was started on nitroglycerin drip, chest pain resolved. Nitro glycerin drip discontinued after LHC. Patient continues to deny chest pain. ? Patient had left heart cath today due to initial troponin 0.14 trending upward to 1.13. LHC was unremarkable, widely patent coronary arteries, normal EF, mildly elevated LVEDP. Per cardiology continue medical management. ? EKG sinus bradycardia, no ST elevation noted. Patient placed in stepdown for frequent monitoring of BP and heart rate/rhythm. Patient remained stable, mildly hypertensive. ? Continue atenolol 50 mg twice daily, Plavix 75 mg daily, aspirin 81 mg daily, losartan 100 mg daily at discharge. ? Personally reviewed chest x-ray, unremarkable; no consolidations, no pleural effusion, no pulmonary edema. ? Patient should follow-up with cardiology in the next few weeks. #HFpEF ? Patient has known history of HFpEF, LVEF is 60%. Most recent echo 05/03/2025. ? Patient appears euvolemic on assessment, lungs CTA, no edema noted. Will continue Bumex 1 mg daily and Farxiga 10 mg daily at discharge. #Hyperlipidemia ? Resume atorvastatin 40 mg at bedtime at discharge. #Diabetes mellitus ? Continue glipizide 10 mg twice daily at discharge. Total time spent on discharge 32 minutes in counseling, documentation, chart review, and direct care with patient. Results Data Completed and Pending Labs on day of discharge: Labs from last 24 hours 06/18/25 06/18/25 09:10 06:17 WBC 9.2 RBC 4.78 Hgb 14.2 Hct 42.1 MCV 88.1 MCH 29.7 MCHC 33.7 RDW 13.3 Plt Count 317 MPV 9.3 Neut % (Auto) 71.5 Lymph % (Auto) 21.0 [place] % (Auto) 5.5 Eos % (Auto) 1.3 Baso % (Auto) 0.4 Neut # (Auto) 6.6 Lymph # (Auto) 1.9 [place] # (Auto) 0.5 Eos # (Auto) 0.1 Baso # (Auto) 0.0 D-Dimer 0.89 H Sodium 136 Potassium 3.6 Chloride 96 L Carbon Dioxide 34 H Anion Gap 9.6 BUN 19 H Creatinine 0.80 Estimated Creat Clear 54 Estimated GFR 68 Est GFR ( Amer) 83 Glucose 164 H Calcium 9.6 Total Bilirubin 0.6 AST 40 H ALT 26 Alkaline Phosphatase 85 Troponin I 1.13 H 0.74 H Total Protein 7.6 Albumin 3.8 Globulin 3.8 H Albumin/Globulin Ratio 1.0 L Lipase 343 H HCV Ab SKIP w/Rflx PCR Qn Negative HIV Ag/Ab Combo Qual Negative DS: Diagnosis Discharge Diagnosis (1) Non-STEMI (non-ST elevated myocardial infarction): Status: Acute Code(s): I21.4 - Non-ST elevation (NSTEMI) myocardial infarction (2) CAD (coronary artery disease): Status: Acute Code(s): I25.10 - Atherosclerotic heart disease of [place] coronary artery without angina pectoris (3) Diabetes mellitus: Status: Acute Code(s): E11.9 - Type 2 diabetes mellitus without complications Qualifiers: Diabetes mellitus type: type 2 Diabetes mellitus retirement insulin use: without termite exterminator helper use Diabetes mellitus complication status: without complication Qualified Code(s): E11.9 - Type 2 diabetes mellitus without complications (4) HTN (hypertension): Status: Acute Code(s): I10 - Essential (primary) hypertension Qualifiers: Hypertension type: primary hypertension Qualified Code(s): I10 - Essential (primary) hypertension Discharge Plan Disposition Patient Disposition: Home, Self-Care Condition: Fair Follow up Plan Follow up with: Estuardo Bae MD [Staff Physician, Cardiology] - 06/25/25 2:00 pm Prescriptions/Medication Reconciliation: New dapagliflozin propanediol [Farxiga] 10 mg Tablet 10 mg PO DAILY 30 Days Qty: 30 1RF ranolazine 500 mg tablet extended release 12 hr 500 mg PO BID Qty: 60 0RF nitroglycerin 0.4 mg tablet, sublingual 0.4 mg sublingual Q5M PRN (Reason: chest pain) Qty: 30 0RF Rx Instructions: do not exceed 3 doses per episode Continued atorvastatin 40 mg tablet 40 mg PO HS Qty: 90 3RF bumetanide 1 mg tablet 1 mg PO DAILY Qty: 90 3RF clopidogrel 75 mg tablet 75 mg PO DAILY Qty: 90 3RF dapagliflozin propanediol [Farxiga] 10 mg tablet 10 mg PO DAILY Qty: 90 3RF losartan 100 mg tablet 100 mg PO DAILY Qty: 90 3RF aspirin 81 mg capsule 81 mg PO DAILY Qty: 90 3RF glipizide 10 mg tablet 10 mg PO BID potassium 99 mg Tablet 99 mg PO DAILY trazodone 50 mg tablet 50 mg PO HS B12 5,000-100 mcg Lozenge 1,000 tino SUBLINGUAL DAILY Rx Instructions: 1,000MCG Multi Vitamin 9 mg iron/15 mL Liquid 15 ml PO DAILY flaxseed oil 1,300 mg Capsule 1,300 mg PO DAILY atenolol 50 mg tablet 50 mg PO BID Problem Reconciliation Problems Reviewed?: Yes Patient Discharge Instructions ACTIVITY: Continue current activity and No heavy lifting DIET: continue same diet and cardiac Print Language: Palestinian Providers Primary Care Provider: Marco Cabezas Admit Provider: Saul Mtz Attending Provider: Saul Mtz
--- NOTE | 2025-06-18 16:15 | PC.NURSE ---
PT PROVIDED WITH CHICKEN SANDWICH, DRINK, AND CHIPS PER HER REQUEST.
--- NOTE | 2025-06-18 17:45 | PC.NURSE ---
WHEN REMOVING R RADIAL CATH BAND, PT'S R FOREARM/ AC IS VERY SWOLLEN AND TENDER TO TOUCH. R RADIAL CATH SITE LOOKS GOOD. NO REDNESS OR SWELLING NOTED. SWELLING NOTED NEAR IV SITE. SWELLING IS NOTED AT 33VOX37PM. DR MONTGOMERY NOTIFIED TO COME ASSESS SITE. +1 PULSE NOTED. IV REMOVED WITH COBAN AND 2X2S APPLIED. BLEEDING CONTROLLED. 2X2S AND TEGADERM APPLIED TO R RADIAL CATH SITE WELL. NO BLEEDING NOTED.
--- NOTE | 2025-06-18 18:01 | PC.NURSE ---
DR MONTGOMERY AT BEDSIDE ASSESSING PT'S R FOREARM AND UPPER ARM. DR MONTGOMERY STATES HE WOULD LIKE TO KEEP PT OVERNIGHT AND OBSERVE HER. DID USE DOPPLER TO CHECK PULSE. FAMILY AT BEDSIDE AND AWARE.
--- NOTE | 2025-06-18 18:04 | PC.NURSE ---
Addendum entered by Oriana Kasper RN 06/18/25 18:18: WILL ASSESS CIRCUMFERENCE OF SITE Q HOURLY AND PASS ALONG IN REPORT Original Note: SPOKE WITH DR KIRKLAND REGARDING SWELLING IN PATIENT'S R FOREARM. HE STATED TO KEEP PATIENT OVERNIGHT AND OBSERVE HER. MONITOR TEMPERATURE, NOTE ANY CHANGES IN GROWTH OF SWELLING AND NOTIFY HIM NEEDED.
--- NOTE | 2025-06-18 18:05 | PC.NURSE ---
DR MONTGOMERY AWARE OF NO IV ACCESS ON PT.
--- NOTE | 2025-06-18 18:38 | PC.NURSE ---
FAMILY LEFT TO GO HOME FOR THE NIGHT. BED ALARM TURNED ON FOR SAFETY.
--- NOTE | 2025-06-18 18:55 | PC.NURSE ---
ASSESSED PATIENT'S ARM. SWELLING AND TENDERNESS STILL NOTED. +1 PULSE NOTED. PT ABLE TO MOVE FINGERS. SWELLING IS THE SAME PREVIOUS ASSESSMENT. SKIN TEMPERATURE IS UNCHANGED FROM PREVIOUS ASSESSMENT.
[2025-06-18] MEDS: ATORVASTATIN 40MG TABLET 80 MG PO (20:10)
[2025-06-18] MEDS: TRAZODONE 50MG TABLET 50 MG PO (20:11)
[2025-06-19] VITALS (9 sets, daily range): BP systolic 109–156; BP diastolic 41–57; PULSE 59–60; RESP 13–22; TEMP 36.5–36.6; O2SAT 95–98; BMI 33.5
[2025-06-19 04:58] LABS: Hematocrit 36.2 % (37.0-47.0); Immature Granulocytes % 0.3 %; Mean Corpuscular HGB Conc 33.1 g/dL (31.8-35.4); Mean Corpuscular Hemoglobin 29.5 pg (27.0-31.2); Mean Corpuscular Volume 88.9 fl (81-99); Nucleated Red Blood Cells % 0 %; Platelet Count 273 K/mm3 (142-424); Red Blood Count 4.07 M/mm3 (4.20-5.40); Red Cell Distribution Width-SD 44.3 fL; White Blood Count 9.7 K/mm3 (4.8-10.8)
[2025-06-19 05:03] LABS: Hemoglobin 11.9 g/dL (12.2-16.2)
[2025-06-19] MEDS: ACETAMINOPHEN 325MG TAB 650 MG PO (05:03)
[2025-06-19 05:07] LABS: Albumin Level 2.9 g/dl (3.5-5.0); Chloride 98 mmol/L (98-107); Sodium 133 mmol/L (136-145)
[2025-06-19 05:08] LABS: Potassium 3.9 mmoL/L (3.5-5.1)
[2025-06-19 05:10] LABS: Alanine Aminotransferase 19 U/L (12-78); Albumin/Globulin Ratio 1.0 (1.1-1.8); Alkaline Phosphatase 64 U/L (38-126); Anion Gap 4.9 mEq/L (5-15); Aspartate Amino Transferase 27 U/L (14-36); Bilirubin,Total 0.3 mg/dl (0.2-1.3); Blood Urea Nitrogen 20 mg/dl (7-17); Calcium 8.6 mg/dl (8.4-10.2); Carbon Dioxide 34 mmol/L (22.0-30.0); Creatinine Clearance Estimated 55 mL/min (50-200); Creatinine,Serum 0.90 mg/dl (0.52-1.04); Estimated Glomerular Filt Rate 60 ml/min (>60); GFR (African American) 72 ML/MIN (>60); Globulin 3.0 g/dL (1.3-3.2); Glucose 135 mg/dl (74-100); Total Protein,Serum 5.9 g/dl (6.3-8.2)
[2025-06-19 05:11] LABS: Magnesium 1.8 mg/dl (1.6-2.3)
--- NOTE | 2025-06-19 06:51 | PC.NURSE ---
patient A&O x4. patient rested well throughout the night. This RN checked swelling in patients right arm every 2 hours during shift and there was no changes to swelling or cath site. patient did state the area was sore so RN called hospitalist to request tylenol PRN for pain. Administered medication per MAR. No acute changes over night. Will continue to monitor.
[2025-06-19] MEDS: CLOPIDOGREL 75MG TAB 75 MG PO (08:08)
[2025-06-19] MEDS: ASPIRIN EC 81MG TABLET 81 MG PO (08:08)
[2025-06-19] MEDS: IRBESARTAN 75MG TABLET 75 MG PO (08:08)
--- NOTE | 2025-06-19 08:29 | P.DS_ITS ---
<Statement entered by Saul Mtz MD - 06/19/25 12:21> Rounded on patient after nurse practitioner. Personally examined and interviewed patient. Agree with exam findings and care plan as documented. General Admission date:: 06/18/25 Discharge date: 06/19/25 HPI HPI HPI: Ms. Jones is an 84-year-old female who presented to the emergency room this morning with complaints of epigastric abdominal pain radiating to her left arm. Denies nausea, vomiting, diarrhea, shortness of breath. She stated to the ED physician it feels like I did when I had my heart attack . Extensive workup was done and she was found to have markedly elevated troponins at 0.14 trending to 1.13. Cardiology was consulted and they recommended a nitroglycerin drip, full dose aspirin, GI cocktail. She recently had a [facility] with stent placement to the LAD in April 2025. EKG showed sinus bradycardia, no acute ST elevation. Vital signs remained stable. Hospital Course Hospital Course Hospital Course: Ms. Oly Jones is an 84-year-old female who presented to the emergency department today with complaints of epigastric pain that radiated to her left arm. She stated that this felt like it did when she had her heart attack. Patient had a NSTEMI in April with successful stenting to the LAD. She does have a primary medical history of hypertension, hyperlipidemia, diabetes, recent cardiac cath with stent. Patient denies nausea, vomiting, shortness of breath. Cardiology was consulted from the emergency department who recommended placing patient on a nitroglycerin drip and admission for further workup and management of her symptoms. CBC, CMP were overall unremarkable. No anemia, no leukocytosis, no electrolyte abnormalities, normal kidney function. Chest x-ray showed no acute findings, EKG showed sinus bradycardia. Patient was admitted and taken for left heart cath yesterday, per cardiology C was unremarkable widely patent coronary arteries, normal EF, mildly elevated LVEDP. Continue medical management. Patient was transported back to the stepdown unit, nitroglycerin drip was discontinued. Patient denied any chest pain, shortness of breath. #Hematoma right forearm ? Patient began to have complaints of right arm swelling and tenderness. Appeared that her IV may have infiltrated during the procedure. Right forearm swelling and extensive bruising noted near IV site. IV was removed at that time. Patient observed overnight and appears to be stable at this time. Pulses are intact, able to move fingers without issues, hand is warm. Patient complains of mild pain with movement, discussed taking Tylenol as needed. Patient will follow-up with PCP and cardiology in the next week. #Elevated troponin #Unstable angina #Hypertension ? Patient was admitted with epigastric pain that radiated to her left arm, which has resolved. Denies substernal chest pain, shortness of breath, nausea, vomiting. Patient was started on nitroglycerin drip, chest pain resolved. Nitro glycerin drip discontinued after LHC. Patient continues to deny chest pain. ? Patient had left heart cath today due to initial troponin 0.14 trending upward to 1.13. LHC was unremarkable, widely patent coronary arteries, normal EF, mildly elevated LVEDP. Per cardiology continue medical management. ? Patient remained normotensive throughout the evening and night. ? Continue atenolol 50 mg twice daily, Plavix 75 mg daily, aspirin 81 mg daily, losartan 100 mg daily at discharge. ? Personally reviewed chest x-ray, unremarkable; no consolidations, no pleural effusion, no pulmonary edema. ? Patient should follow-up with cardiology in the next few weeks. ? Hemoglobin 11.9, electrolytes no abnormalities, kidney function within normal limits. #HFpEF ? Patient has known history of HFpEF, LVEF is 60%. Most recent echo 05/03/2025. ? Patient appears euvolemic on assessment, lungs CTA, no edema noted. Will continue Bumex 1 mg daily and Farxiga 10 mg daily at discharge. #Hyperlipidemia ? Resume atorvastatin 40 mg at bedtime at discharge. #Diabetes mellitus ? Continue glipizide 10 mg twice daily at discharge. #Anxiety ? Discussed with patient this morning results of heart cath. She feels as though her chest pain may be related to her increased anxiety. Her great grandson who she has helped raise since he was a baby is now going to middle school and she is not as involved as she once was. She is tearful during this discussion. She is interested in something to help with her anxiety. Discussed starting sertraline 25 mg daily. She is not interested in behavioral health at this time, she does have a follow-up with her PCP in July, advised to keep follow-up and discuss new medications with PCP at that time. Total time spent on discharge 33 minutes in counseling, documentation, chart review, and direct care with patient. Exam Data for Last 24 hours Vital signs and Labs for Last 24 Hours: Temp Pulse Resp BP Pulse Ox O2 Del Method 97.8 F 60 13 129/54 L 95 Room Air 06/19/25 08:00 06/19/25 08:00 06/19/25 08:00 06/19/25 08:00 06/19/25 08:00 06/19/25 08:00 Laboratory Results - last 24 hr 06/18/25 06:17: D-Dimer 0.89 H 06/18/25 09:10: Troponin I 1.13 H 06/19/25 04:50: WBC 9.7, RBC 4.07 L, Hgb 11.9 L D, Hct 36.2 L, MCV 88.9, MCH 29.5, MCHC 33.1, RDW 13.6, Plt Count 273, MPV 9.4, Neut % (Auto) 77.7, Lymph % (Auto) 15.2, Lyon % (Auto) 5.3, Eos % (Auto) 1.0, Baso % (Auto) 0.5, Neut # (Auto) 7.6, Lymph # (Auto) 1.5, Lyon # (Auto) 0.5, Eos # (Auto) 0.1, Baso # (Auto) 0.1, Sodium 133 L, Potassium 3.9, Chloride 98, Carbon Dioxide 34 H, Anion Gap 4.9 L, BUN 20 H, Creatinine 0.90, Estimated Creat Clear 55, Estimated GFR 60, Est GFR ( Amer) 72, Glucose 135 H, Calcium 8.6, Magnesium 1.8, Total Bilirubin 0.3, AST 27 D, ALT 19 D, Alkaline Phosphatase 64, Total Protein 5.9 L, Albumin 2.9 L D, Globulin 3.0, Albumin/Globulin Ratio 1.0 L I & O for Last 24 hours: Intake & Output 06/16/25 06/17/25 06/18/25 06/19/25 23:59 23:59 23:59 23:59 Intake Total 240.575 / 340.575 100 / 100 Output Total 0 / 0 0 / 0 Balance 240.575 / 340.575 100 / 100 Weight 81.647 kg 82.5 kg Constitutional Constitutional: no acute distress and obese *Routine HEENT Exam Head: Present normocephalic Eye: Present EOMI and PERRL ENT: Present mucous membranes moist *Routine Neck Exam Neck: Present supple; Absent lymphadenopathy *Routine Respiratory Exam Respiratory: Present CTA bilaterally *Routine Cardiovascular Exam Cardiovascular: Present RRR *Routine Abdominal Exam Abdominal: Present soft and normoactive bowel sounds; Absent tenderness *Routine Extremities Exam Extremities: Absent cyanosis, clubbing or edema *Routine Skin Exam Skin: Present warm; Absent rash *Routine Neurological Exam Neurological: Present alert and oriented X3 Results Data Completed and Pending Labs on day of discharge: Labs from last 24 hours 06/19/25 06/18/25 06/18/25 04:50 09:10 06:17 WBC 9.7 RBC 4.07 L Hgb 11.9 L D Hct 36.2 L MCV 88.9 MCH 29.5 MCHC 33.1 RDW 13.6 Plt Count 273 MPV 9.4 Neut % (Auto) 77.7 Lymph % (Auto) 15.2 Lyon % (Auto) 5.3 Eos % (Auto) 1.0 Baso % (Auto) 0.5 Neut # (Auto) 7.6 Lymph # (Auto) 1.5 Lyon # (Auto) 0.5 Eos # (Auto) 0.1 Baso # (Auto) 0.1 D-Dimer 0.89 H Sodium 133 L Potassium 3.9 Chloride 98 Carbon Dioxide 34 H Anion Gap 4.9 L BUN 20 H Creatinine 0.90 Estimated Creat Clear 55 Estimated GFR 60 Est GFR ( Amer) 72 Glucose 135 H Calcium 8.6 Magnesium 1.8 Total Bilirubin 0.3 AST 27 D ALT 19 D Alkaline Phosphatase 64 Troponin I 1.13 H Total Protein 5.9 L Albumin 2.9 L D Globulin 3.0 Albumin/Globulin Ratio 1.0 L DS: Diagnosis Discharge Diagnosis (1) Non-STEMI (non-ST elevated myocardial infarction): Status: Acute Code(s): I21.4 - Non-ST elevation (NSTEMI) myocardial infarction (2) CAD (coronary artery disease): Status: Acute Code(s): I25.10 - Atherosclerotic heart disease of [place] coronary artery without angina pectoris (3) Diabetes mellitus: Status: Acute Code(s): E11.9 - Type 2 diabetes mellitus without complications Qualifiers: Diabetes mellitus complication status: without complication Diabetes mellitus terminal superintendent insulin use: without long-term use Diabetes mellitus type: type 2 Qualified Code(s): E11.9 - Type 2 diabetes mellitus without complications (4) HTN (hypertension): Status: Acute Code(s): I10 - Essential (primary) hypertension Qualifiers: Hypertension type: primary hypertension Qualified Code(s): I10 - Essential (primary) hypertension (5) Hematoma of right forearm: Status: Acute Code(s): S50.11XA - Contusion of right forearm, initial encounter (6) Anxiety: Status: Acute Code(s): F41.9 - Anxiety disorder, unspecified Meds Home Medications and Allergies Home Medications ?Medication ?Instructions ?Recorded ?Confirmed ?Type glipizide 10 mg tablet 10 mg PO BID 05/03/25 History potassium 99 mg tablet 99 mg PO DAILY 05/03/2503/09 History trazodone 50 mg tablet 50 mg PO HS 05/04/25 5 History atorvastatin 40 mg tablet 40 mg PO HS #90 tabs 5 06/18/25 Rx bumetanide 1 mg tablet 1 mg PO DAILY #90 tabs 05/2806/18/25 Rx clopidogrel 75 mg tablet 75 mg PO DAILY #90 tabs 05/1506/18/25 Rx dapagliflozin propanediol 10 mg 10 mg PO DAILY #90 tab s 05/28/25 05/28/25 Rx tablet (Farxiga) losartan 100 mg tablet 100 mg PO DAILY #90 tabs 06/18/25 Rx aspirin 81 mg capsule 81 mg PO DAILY #90 caps 05/1606/18/25 Rx atenolol 50 mg tablet 50 mg PO BID 06/18/25 History cyanocobalamin (B12)-cobamamide 1,000 tino sublingual D AILY 06/18/25 06/18/25 History 5,000 mcg-100 mcg sublingual lozenge (B12) dapagliflozin propanediol 10 mg 10 mg PO DAILY 30 days #30 tabs 06/18/25 Rx tablet (Farxiga) flaxseed oil 1,300 mg capsule 1,300 mg PO DAILY 06/18/25 History multivitamin with minerals-iron 15 ml PO DAILY 5 06/18/25 History fumarate 9 mg iron/15 mL oral liquid (Multi Vitamin) nitroglycerin 0.4 mg sublingual 0.4 mg sublingual Q5M PRN chest 06/18/25 Rx tablet pain #30 tabs ranolazine 500 mg tablet,extended 500 mg PO BID #60 ta bs 06/18/25 Rx release,12 hr sertraline 25 mg tablet 25 mg PO DAILY #30 tabs 04/08 Rx New Prescriptions to Start Prescriptions: dapagliflozin propanediol [Farxiga] Silvia Terrazas nitroglycerin Silvia Terrazas ranolazine Silvia Terrazas sertraline Silvia Terrazas Allergies Allergy/AdvReac Type Severity Reaction Status Date / Time No Known Allergies Allergy Verified 06/18/25 09:32 Discharge Plan Disposition Patient Disposition: Home, Self-Care Condition: Fair Follow up Plan Follow up with: Marco Cabezas APRN [Primary Care Provider, Medical] - 07/02/25 10:00 am Estuardo Bae MD [Staff Physician, Cardiology] - 06/25/25 2:00 pm Prescriptions/Medication Reconciliation: New dapagliflozin propanediol [Farxiga] 10 mg Tablet 10 mg PO DAILY 30 Days Qty: 30 1RF ranolazine 500 mg tablet extended release 12 hr 500 mg PO BID Qty: 60 0RF nitroglycerin 0.4 mg tablet, sublingual 0.4 mg sublingual Q5M PRN (Reason: chest pain) Qty: 30 0RF Rx Instructions: do not exceed 3 doses per episode sertraline 25 mg tablet 25 mg PO DAILY Qty: 30 1RF Continued atorvastatin 40 mg tablet 40 mg PO HS Qty: 90 3RF bumetanide 1 mg tablet 1 mg PO DAILY Qty: 90 3RF clopidogrel 75 mg tablet 75 mg PO DAILY Qty: 90 3RF dapagliflozin propanediol [Farxiga] 10 mg tablet 10 mg PO DAILY Qty: 90 3RF losartan 100 mg tablet 100 mg PO DAILY Qty: 90 3RF aspirin 81 mg capsule 81 mg PO DAILY Qty: 90 3RF glipizide 10 mg tablet 10 mg PO BID potassium 99 mg Tablet 99 mg PO DAILY trazodone 50 mg tablet 50 mg PO HS B12 5,000-100 mcg Lozenge 1,000 tino SUBLINGUAL DAILY Rx Instructions: 1,000MCG Multi Vitamin 9 mg iron/15 mL Liquid 15 ml PO DAILY flaxseed oil 1,300 mg Capsule 1,300 mg PO DAILY atenolol 50 mg tablet 50 mg PO BID Problem Reconciliation Problems Reviewed?: Yes Patient Discharge Instructions ACTIVITY: Continue current activity and No heavy lifting DIET: continue same diet and cardiac Patient Instructions: Cardiac Catheterization, Surgical Site Infection, Moderate Sedation, DI for Post-Surgical Bleeding Print Language: [place]ican Providers Primary Care Provider: Marco Cabezas Admit Provider: Saul Mtz Attending Provider: Saul Mtz
--- NOTE | 2025-06-19 08:30 | PC.NURSE ---
assessed swelling in patients right arm. swelling appears to be improving per pt. affected extremity is warm, +1 radial pulses palpated, pt able to move fingers without pain. pt reports mild aching pain of a 3 at this time but reports some relief with tylenol.
[2025-06-19] MEDS: DAPAGLIFLOZIN PROPANEDIOL 10 MG TABLET PO (09:00)
[2025-06-20 08:01] LABS: POC Glucose,Bedside 211 (70-110)
[2025-06-20 08:01] LABS: POC Glucose,Bedside 144 (70-110)
[2025-06-20 08:01] LABS: POC Glucose,Bedside 158 (70-110)
[2025-06-20 08:01] LABS: POC Glucose,Bedside 326 (70-110)
--- NOTE | 2025-06-20 10:32 | SW/DCPLANNER ---
Spoke with patient on the phone. Patient stated that she is doing good. Patient stated that she was not able to get all her medicine picked up from [facility] and that she plans on getting them today. Patient stated that she has no concerns or questions at this time. Geovanni LOPEZ [employer] Waste Technician
== END 2025-06-19 12:10 | disposition home or self-care (01) ==
LOC: ER 07:35 → ICU 07:51
PROVIDERS: Internal Medicine; Admitting Provider Internal Medicine Adolescent Medicine; Emergency Provider Emergency Medicine; PCP Nurse Practitioner Family; Visit Provider Internal Medicine Adolescent Medicine
PROC: 4A023N7 Measurement of Cardiac Sampling and Pressure, Left Heart, Percutaneous Approach (ICD-10-PCS; CPT 93452; principal; 2025-06-18 14:30)
DX: I25.10 Atherosclerotic heart disease of native coronary artery without angina pectoris (principal); I50.30 Unspecified diastolic (congestive) heart failure; R10.13 Epigastric pain; I25.2 Old myocardial infarction; I11.0 Hypertensive heart disease with heart failure; E11.9 Type 2 diabetes mellitus without complications; S50.11XA Contusion of right forearm, initial encounter; E66.9 Obesity, unspecified; F41.9 Anxiety disorder, unspecified; R79.89 Other specified abnormal findings of blood chemistry; E78.5 Hyperlipidemia, unspecified; Z95.5 Presence of coronary angioplasty implant and graft; Z68.33 Body mass index [BMI] 33.0-33.9, adult; Z79.82 Long term (current) use of aspirin; Z79.02 Long term (current) use of antithrombotics/antiplatelets; Z79.84 Long term (current) use of oral hypoglycemic drugs; Z79.899 Other long term (current) drug therapy
CPT/HCPCS: 93458; 36415; 71045; 80053; 82962; 83690; 83735; 84484; 85025; 85378; 86803; 87389; 93005; 96365; 96366; 96374; 96375; 96376; 97163; 97166; 99152; 99291; C1725; C1769; G0378; J1200; J1450; J1644; J1650; J2003; J2250; J7040; Q9967